=== PATIENT | male | born 1940 | race Caucasian/White ===

== ENCOUNTER → 2016-11-30 | Outpatient (CLI) | payer OTHER, BC ==
[~2016-11-30] MED LIST: ADVIN25050 INH; ALBUAER; ASPEC81 PO; LISI-461 PO; METO25TA56 PO; SIMV20TA2 PO; TIOTCAP INH; ZPAK
[2016-12-01 15:54] LABS: ALBUMIN 3.7 G/DL (3.8-4.8); GAMMA GLOBULIN 0.9 G/DL (0.8-1.7); IMMUNOFIXATION IGA SERUM 105 MG/DL (81-463); IMMUNOFIXATION IGG SERUM 938 MG/DL (694-1618); IMMUNOFIXATION IGM SERUM 248 MG/DL (48-271); TOTAL PROTEIN 6.4 G/DL (6.2-8.3)
== END | disposition home or self-care (01) ==
LOC: C.LABPVFM 10:22
PROVIDERS: ATTEND Internal Medicine Rheumatology
DX: M25.432 Effusion, left wrist (principal); M25.531 Pain in right wrist; M25.439 Effusion, unspecified wrist

== ENCOUNTER → 2017-01-28 | Outpatient (CLI) | payer OTHER, BC ==
--- NOTE | 2017-01-28 11:09 | DIAGNOSTIC IMAGING REPORT ---
CHEST CT WITHOUT CONTRAST CT DOSE: 607.82 mGycm HISTORY: Pulmonary nodule R91.1 Solitary pulmonary noduled in 4 [id number] TECHNIQUE: Multiaxial CT images of the chest were performed without contrast. COMPARISON: 09/27/2016 FINDINGS: Baseline emphysematous change. Mild scattered fibrotic change left lower lobe and to lesser extent right base posteriorly unchanged. Previously described 1.6 cm nodular density adjacent to the left major fissure transaxial image 23 is considerably diminished in size with a current maximum dimension of 5 mm. Vague micronodularity right upper lung unchanged. Several small mediastinal nodes unchanged. Considerable atherosclerotic change thoracic aorta also unchanged. IMPRESSION: 1. Interval decrease in size of a nodular density immediately adjacent to the superior margin of the left major fissure. 2. This is diminished in size from 1.6 cm to 5 mm. 3. Additional chronic changes stable. 4. Routine follow-up per Fleischner criteria is suggested. Please refer to below summary of Fleischner criteria recommendations for follow-up of incidental CT nodules (Amy Saunders, Guidelines for management of small pulmonary nodules detected on CT scans: A statement from the Fleischner Society, Radiology 237: [phone].) Low Risk Patient: Minimal or no smoking or other known risk factors for malignancy <=4 mm: No follow-up needed. >4-6 mm: Initial follow-up CT at 12 months; if unchanged, no further follow-up. >6-8 mm: Initial follow-up CT at 6-12 months then at 18-24 months if no change. >8 mm: Follow-up CT at \R\3, 9, 24 months, or PET and/or biopsy. High Risk Patient: History of smoking or other known risk factors <=4 mm: Follow-up at 12 months; if unchanged, no further follow-up. >4-6 mm: Initial follow-up CT at 6-12 months then at 18-24 months if no change. >6-8 mm: Initial follow-up CT at 3-6 months then at 9-12 and 24 months if no change. >8 mm: Same as low risk patient. Note: Nodule size measured as average of length and width. Ground glass or partly solid nodules may require longer follow-up to exclude indolent adenocarcinoma. Electronically signed by: Primitivo Buckner M.D. 01/28/2017 11:07 AM Dictated Date/Time: 01/28/2017 11:03 AM
== END | disposition home or self-care (01) ==
LOC: C.CTS 10:45
PROVIDERS: ATTEND Internal Medicine Pulmonary Disease
DX: R91.1 Solitary pulmonary nodule (principal)

== ENCOUNTER → 2017-03-01 | Outpatient (CLI) | payer OTHER, BC ==
[2017-03-01 13:39] LABS: THYROID STIMULATING HORMONE 36.3 uIu/ml (0.300-4.500)
[2017-03-01 13:40] LABS: CHOLESTEROL/HDL RATIO 2.9
== END | disposition home or self-care (01) ==
LOC: C.LABPVFM 07:59
PROVIDERS: ATTEND Internal Medicine Cardiovascular Disease
DX: E03.9 Hypothyroidism, unspecified (principal); E78.00 Pure hypercholesterolemia, unspecified

== ENCOUNTER → 2017-06-02 | Outpatient (CLI) | payer OTHER, BC | END | disposition home or self-care (01) | LOC: C.LABPVFM 08:01 | PROVIDERS: ATTEND Nurse Practitioner | DX: E03.9 Hypothyroidism, unspecified (principal) ==

== ENCOUNTER → 2017-07-01 | Outpatient (CLI) | payer OTHER, BC ==
[2017-07-01 18:22] LABS: BLOOD UREA NITROGEN 12 mg/dl (7-18); BUN/CREATININE RATIO 10.3 (10-20); CALCIUM 9.4 mg/dl (8.5-10.1); CARBON DIOXIDE 31 mmol/L (21-32); CHLORIDE 103 mmol/L (98-107); GLUCOSE 84 mg/dl (70-99); POTASSIUM 4.4 mmol/L (3.5-5.1); SODIUM 139 mmol/L (136-145)
== END | disposition home or self-care (01) ==
LOC: C.LABPVFM 15:57
PROVIDERS: ATTEND Nurse Practitioner
DX: I10 Essential (primary) hypertension (principal)

== ENCOUNTER → 2017-08-22 | Outpatient (CLI) | payer OTHER, BC ==
[2017-08-22 12:58] LABS: CHOLESTEROL/HDL RATIO 2.1
== END | disposition home or self-care (01) ==
LOC: C.LABPVFM 08:00
PROVIDERS: ATTEND Internal Medicine Cardiovascular Disease
DX: E03.9 Hypothyroidism, unspecified (principal); E78.00 Pure hypercholesterolemia, unspecified

== ENCOUNTER → 2017-10-05 | Outpatient (CLI) | payer OTHER, BC ==
--- NOTE | 2017-10-05 09:39 | DIAGNOSTIC IMAGING REPORT ---
CT OF THE CHEST WITHOUT IV CONTRAST CLINICAL HISTORY: Lung nodule. COMPARISON STUDY: Chest CT January 28, 2017 and October 06, 2010 and PET/CT October 06, 2016. CT DOSE: 450.83 mGy.cm TECHNIQUE: Axial images of the chest were obtained without IV contrast. Images were reviewed in the axial, sagittal, and coronal planes. IV contrast was not administered for this examination. A dose lowering technique was utilized adhering to the principles of ALARA. FINDINGS: No enlarged axillary, mediastinal or hilar lymph nodes are present. There is extensive coronary artery calcification. 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 There is no pericardial effusion. Mucus is noted within the trachea. There is multi focal mucus throughout lower lobe bronchi, greatest within the right lower lobe. Severe emphysema is noted. Multifocal scarring, most evident within the left lower lobe is noted. The previously described perifissural nodule within the superior segment of the left lower lobe has resolved. No new pulmonary nodules are present. No pneumothorax or pleural effusion is present. Small calcified nodules are again noted. Bony thorax is unremarkable. There may be fatty infiltration of the liver. IMPRESSION: 1. Resolution of the previously described left lower lobe perifissural nodule. No suspicious pulmonary nodules. 2. Severe emphysema. 3. Diffuse bronchial wall thickening and multifocal mucus plugging, most evident within the right lower lobe. Electronically signed by: Eren Cardona M.D. 10/05/2017 9:37 AM Dictated Date/Time: 10/05/2017 9:23 AM
== END | disposition home or self-care (01) ==
LOC: C.CTS 08:55
PROVIDERS: ATTEND Internal Medicine Pulmonary Disease
DX: R91.8 Other nonspecific abnormal finding of lung field (principal); J43.9 Emphysema, unspecified

== ENCOUNTER → 2017-12-02 | Outpatient (CLI) | payer OTHER, BC ==
[2017-12-02 18:20] LABS: BLOOD UREA NITROGEN 14 mg/dl (7-18); CALCIUM 9.4 mg/dl (8.5-10.1); CARBON DIOXIDE 28 mmol/L (21-32); CREATININE 1.19 mg/dl (0.60-1.40); GLUCOSE 100 mg/dl (70-99); POTASSIUM 4.5 mmol/L (3.5-5.1); SODIUM 133 mmol/L (136-145)
== END | disposition home or self-care (01) ==
LOC: C.LABPVFM 13:34
PROVIDERS: ATTEND Nurse Practitioner
DX: E03.9 Hypothyroidism, unspecified (principal); I49.9 Cardiac arrhythmia, unspecified

== ENCOUNTER → 2018-06-28 | Outpatient (CLI) | payer OTHER, BC ==
[~2018-06-28] MED LIST changes: -ADVIN25050 INH; -ALBUAER; +ALBUAER INH; +ATRINS NEB; +LEVO125T5 PO; +SYMIN160 INH; -TIOTCAP INH; -ZPAK
[2018-06-28 10:08] LABS: ALBUMIN 3.3 gm/dl (3.4-5.0); ALKALINE PHOSPHATASE 55 U/L (45-117); ALT/SGPT 23 U/L (12-78); AST/SGOT 24 U/L (15-37); BLOOD UREA NITROGEN 9 mg/dl (7-18); CALCIUM 8.8 mg/dl (8.5-10.1); CARBON DIOXIDE 28 mmol/L (21-32); CREATININE 0.97 mg/dl (0.60-1.40); GLUCOSE 82 mg/dl (70-99); POTASSIUM 4.2 mmol/L (3.5-5.1); SODIUM 138 mmol/L (136-145); TOTAL PROTEIN 6.7 gm/dl (6.4-8.2)
--- NOTE | 2018-06-28 10:23 | DIAGNOSTIC IMAGING REPORT ---
ULTRASOUND KIDNEYS AND BLADDER CLINICAL HISTORY: Benign prostatic hyperplasia with urinary obstruction. COMPARISON STUDY: PET/CT dated 10/06/2016. TECHNIQUE: Real-time, grayscale, and color flow sonography of the kidneys and bladder is performed. Images are reviewed in the transverse and longitudinal planes. FINDINGS: Kidneys: The kidneys demonstrate mild cortical atrophy. The right kidney measures 9.6 x 4.7 x 5.1 cm and the left kidney measures 9.9 x 4.8 x 6.6 cm. There is no hydronephrosis. No shadowing renal calculi are identified. Small cortical and parapelvic cysts are observed. These measure Up to 12 mm. There is no sonographic evidence of contour deforming renal mass lesion. No perinephric fluid is identified. Bladder: The prostate gland is enlarged and heterogeneous, measuring 6 cm in transverse diameter. The bladder wall is thickened and trabeculated indicating chronic outlet obstruction.. Bilateral ureteral jets were seen. Upper abdomen: Survey images of the liver show evidence of hepatic steatosis. IMPRESSION: 1. The kidneys demonstrate cortical atrophy and are without hydronephrosis. 2. Prostatomegaly with evidence of chronic bladder outlet obstruction. Electronically signed by: Erik Jacobson M.D. 06/28/2018 10:22 AM Dictated Date/Time: 06/28/2018 9:57 AM
== END | disposition home or self-care (01) ==
LOC: C.ULTR 08:55
PROVIDERS: ATTEND Urology
DX: N39.0 Urinary tract infection, site not specified (principal); N40.1 Benign prostatic hyperplasia with lower urinary tract symptoms

== ENCOUNTER 2021-06-20 13:26 | Inpatient (IN) ==
[2021-06-20] MEDS ORDERED: SODIUM CHLORIDE 0.9% 500 ML IV STA (13:39)
[2021-06-20] MEDS ORDERED: STAT IV Infusion **Titration per Protocol STA (13:39)
[2021-06-20] MEDS ORDERED: dilTIAZem HCl 5 MG/ML 5 ML VIAL IV STA (13:39)
--- NOTE | 2021-06-20 13:42 | Emergency Department Note ---
History of Present Illness General Chief complaint: Cardiac Assessment Stated complaint: CARDIAC History of Present Illness 81-year-old male presents to the ED with a chief complaint of generalized weakness, tiredness shortness of breath all of which is worse with exertion. The patient states that he tripped over a chair a few days ago and fell striking his right eye. He is currently not on blood thinners. He is found to be in A. fib with RVR for EMS with a heart rate in the 160s. He was treated with IV Cardizem 20 mg as well as an IV fluid bolus in route to the hospital by EMS and his heart rate transiently improved into the 80s. The patient does not take any blood thinners. He reports no known history of atrial fibrillation or flutter. He does have some chronic issues with regards to shortness of breath and COPD. He is on several medications for this. He is also on levothyroxine. Denies any fevers or recent illness. No abdominal pains. No chest pains. No headaches. His symptoms have progressed over the last several days. Home Medications Medication Instructions Recorded Confirmed Type aspirin 81 mg tablet,delayed 81 mg PO QAM 06/22/19 06/20/21 History release (Adult Aspirin Regimen) Oxygen Home #1 ea 07/01/20 03/31/21 History guaifenesin 600 mg tablet, 600 mg PO Q12H tab 08/01/20 06/20/21 History extended release 12 hr (Mucinex) albuterol sulfate 90 mcg/actuation 2 puff INH QID PRN #18 g 08/29/20 06/20/21 Rx aerosol inhaler (Ventolin HFA) budesonide-formoterol HFA 160 2 puff INH Q12H #10.2 gm 05/04/21 06/20/21 Rx mcg-4.5 mcg/actuation aerosol inhaler (Symbicort) finasteride 5 mg tablet 5 mg PO HS 06/20/21 06/20/21 History levalbuterol HCl 1.25 mg/3 mL 1.25 mg INH DIRECTED PRN 06/20/21 06/20/21 History solution for nebulization levothyroxine 125 mcg tablet 125 mcg PO QAM 06/20/21 06/20/21 History lisinopril 10 mg tablet 10 mg PO QAM 06/20/21 06/20/21 History metoprolol succinate 50 mg 50 mg PO QAM 06/20/21 06/20/21 History tablet,extended release 24 hr nitroglycerin 0.4 mg sublingual 0.4 mg SUBLINGUAL Q5M PRN 06/20/21 06/20/21 Hi story tablet simvastatin 40 mg tablet 40 mg PO HS 06/20/21 06/20/21 History tamsulosin 0.4 mg capsule 0.4 mg PO HS 06/20/21 06/20/21 History umeclidinium 62.5 mcg/actuation 1 inh INHALATION QAM 06/20/21 06/20/21 History blister powder for inhalation (Incruse Ellipta) Allergies Allergy/AdvReac Type Severity Reaction Status Date / Time No Known Allergies Allergy Verified 06/20/21 14:14 Past Med/Surg History Medical History Acute on chronic respiratory failure with hypoxia and hypercapnia Cough Decreased cardiac ejection fraction Dyspnea History of degenerative joint disease HTN (hypertension) Hypercholesterolemia Hypothyroidism Ischemic cardiomyopathy Past myocardial infarction Solitary pulmonary nodule Urinary retention Surgical History History of intravascular stent placement Family History Mother Myocardial infarction Father Acute pneumonitis Asthma Sister Asthma Brother Myocardial infarction Denies family history of Ovarian cancer Prostate cancer Breast cancer Colorectal cancer Social History Smoking Status: Former smoker Tobacco Type: Cigarettes packs per day: 2; Years Smoked: 50; Number of Years Since Quit: 19; Hx Alcohol Use: Yes Hx Substance Use: No Preferred Language: [place] Communication Ability: Effective Visual Impairment: Limited Hearing Ability: Normal Beliefs That Will Affect Care: None marital status: / Current Living Situation: Alone current occupational status: retired Feels Safe at Home: Yes Childhood Exposure to Second-Hand Smoke: Yes caffeine: Yes Dental Care, Regularly: No Physical Activity Frequency: 1-2 Times per Week Seatbelt Use: always Sunscreen Use: No Review of Systems A total of 10 systems reviewed and were otherwise negative Physical Exam Vital Signs Vital Signs - 24 hr 06/20/21 13:30 06/20/21 14:00 06/20/21 14:11 Temperature 36.5 C Temperature Source Oral Pulse Rate 125 H 84 83 Pulse Rate from SpO2 Sensor 81 Pulse Rhythm Regular Pulse Strength Normal Respiratory Rate 31 H 24 21 Respiratory Effort / Characteristics Labored Blood Pressure 138/85 104/53 L 129/78 Blood Pressure Mean 102 70 95 Blood Pressure Position Sitting Pulse Oximetry 93 93 Oxygen Delivery Method Nasal Cannula Oxygen Flow Rate 3 Sepsis Recent Fever Within 48 Hours No Sepsis New/Unexplained Change in Mental Status No Sepsis Action Taken by Nursing No Action Required CONSTITUTIONAL/VITAL SIGNS: Reviewed / noted above. GENERAL: Non-toxic in appearance. INTEGUMENTARY: Warm, dry, and [place]. HEAD: Normocephalic. Right periorbital contusion. EYES: without scleral icterus or trauma. ENT/OROPHARYNX: clear and moist. LYMPHADENOPATHY/NECK: Is supple without lymphadenopathy or meningismus. RESPIRATORY: Clear to auscultation bilaterally. No increased work of breathing. CARDIOVASCULAR: Rapid rate and irregular rhythm. GI/ABDOMEN: Soft and nontender. No organomegaly or pulsatile mass. EXTREMITIES: Warm and well perfused. Left hand contusion. BACK: No CVA tenderness. NEUROLOGICAL: Intact without focal deficits. PSYCHIATRIC: normal affect. MUSCULOSKELETAL: Normally developed with good muscle tone. TRIAGE NURSING DOCUMENTATION REVIEWED. Course Administered Medications Diltiazem HCl 125 mg/ Dextrose 125 mls @ 5 mls/hr IV .Q24H [facility]; Protocol Stop: 07/20/21 13:44 Last Admin: 06/20/21 13:56 Dose: 5 mg/hr, 5 mls/hr Documented by: [id number] Cosigned by: [id number] Discontinued Medications Diltiazem HCl (Diltiazem Hcl 5 Mg/Ml 5 Ml Vial) 20 mg IV NOW STA Stop: 06/20/21 13:40 Last Admin: 06/20/21 13:55 Dose: 20 mg Documented by: [id number] Cosigned by: [id number] Sodium Chloride (Nss) 500 mls @ 999 mls/hr IV .Q31M STA Stop: 06/20/21 14:09 Last Admin: 06/20/21 13:55 Dose: 999 mls/hr Documented by: [id number] Critical Care Time Critical Care Time: Yes Total Critical Care Time: 35 I have personally spent 35 minutes of critical care time in the direct ma nagement of this patient. This includes bedside care, interpretation of diagnostic studies, and testing, discussion with consultants, patient, and family members, and other required patient management activities. This 35 minutes is in excess of all separately billable procedures. Medical Decision Making Differential Diagnosis Differential includes acute coronary syndrome, myocardial infarction, CVA, TIA, anemia, infection, pneumonia, UTI, pyelonephritis, poor nutrition, dehydration, electrolyte disturbance,hypoglycemia. Medical Records Attestation: I reviewed the patient's medical records. Home Medications Current Medication List: was personally reviewed by me Laboratory Data Attestation: I reviewed the patient's lab results. Result diagrams: 06/20/21 13:45 06/20/21 13:45 Lab Results 06/20/21 06/20/21 06/20/21 Range/Units 13:45 13:45 13:45 WBC 8.88 (4.8-10.8) K/uL RBC 5.58 (4.7-6.1) M/uL Hgb 14.9 (14.0-18.0) g/dL Hct 44.8 (42-52) % MCV 80.3 (80-100) fL MCH 26.7 (25-34) pg MCHC 33.3 (32-36) g/dL RDW Std Deviation 46.0 (36.4-46.3) fL RDW Coeff of Chloe 15.7 H (11.5-14.5) % Plt Count 168 (130-400) K/uL MPV 10.5 H (7.4-10.4) fL Immature Gran % (Auto) 0.7 % Neut % (Auto) 64.8 % Lymph % (Auto) 16.6 % [place] % (Auto) 17.8 % Eos % (Auto) 0.0 % Baso % (Auto) 0.1 % Neut # (Auto) 5.76 (1.4-6.5) K/uL Lymph # (Auto) 1.47 (1.2-3.4) K/uL [place] # (Auto) 1.58 H (0.11-0.59) K/uL Eos # (Auto) 0.00 (0-0.5) K/uL Baso # (Auto) 0.01 (0-0.2) K/uL Immature Gran # (Auto) 0.06 H (0.00-0.02) K/uL PT 11.7 (9.0-12.0) Seconds INR 1.2 H (0.9-1.1) APTT 28.8 (21.0-31.0) Seconds PTT Ratio 1.1 Sodium 130 L (136-145) mmol/L Potassium 4.6 (3.5-5.1) mmol/L Chloride 100 (98-107) mmol/L Carbon Dioxide 26 (21-32) mmol/L Anion Gap 4.0 (3-11) BUN 44 H (7-18) mg/dl Creatinine 1.41 H (0.6-1.4) mg/dl Est Cr Clr Drug Dosing 39.1 ml/min Est GFR ( Amer) 53.0 ml/min Est GFR (Non-Af Amer) 45.7 ml/min BUN/Creatinine Ratio 31.4 H (10-20) Glucose 114 H (70-99) mg/dl Calcium 8.1 L (8.5-10.1) mg/dl Magnesium 2.4 (1.8-2.4) mg/dl Total Bilirubin 1.0 (0.2-1) mg/dl AST 33 (15-37) U/L ALT 31 (12-78) U/L Alkaline Phosphatase 56 (45-117) U/L Total Protein 7.1 (6.4-8.2) gm/dl Albumin 3.1 L (3.4-5.0) gm/dl Globulin 4.0 (2.5-4.0) gm/dl Albumin/Globulin Ratio 0.8 L (0.9-2) TSH 5.120 H (0.300-4.500) uIu/ml COVID-19 Eval Order 06/20/21 Range/Units 14:08 WBC (4.8-10.8) K/uL RBC (4.7-6.1) M/uL Hgb (14.0-18.0) g/dL Hct (42-52) % MCV (80-100) fL MCH (25-34) pg MCHC (32-36) g/dL RDW Std Deviation (36.4-46.3) fL RDW Coeff of Chloe (11.5-14.5) % Plt Count (130-400) K/uL MPV (7.4-10.4) fL Immature Gran % (Auto) % Neut % (Auto) % Lymph % (Auto) % [place] % (Auto) % Eos % (Auto) % Baso % (Auto) % Neut # (Auto) (1.4-6.5) K/uL Lymph # (Auto) (1.2-3.4) K/uL [place] # (Auto) (0.11-0.59) K/uL Eos # (Auto) (0-0.5) K/uL Baso # (Auto) (0-0.2) K/uL Immature Gran # (Auto) (0.00-0.02) K/uL PT (9.0-12.0) Seconds INR (0.9-1.1) APTT (21.0-31.0) Seconds PTT Ratio Sodium (136-145) mmol/L Potassium (3.5-5.1) mmol/L Chloride (98-107) mmol/L Carbon Dioxide (21-32) mmol/L Anion Gap (3-11) BUN (7-18) mg/dl Creatinine (0.6-1.4) mg/dl Est Cr Clr Drug Dosing ml/min Est GFR ( Amer) ml/min Est GFR (Non-Af Amer) ml/min BUN/Creatinine Ratio (10-20) Glucose (70-99) mg/dl Calcium (8.5-10.1) mg/dl Magnesium (1.8-2.4) mg/dl Total Bilirubin (0.2-1) mg/dl AST (15-37) U/L ALT (12-78) U/L Alkaline Phosphatase (45-117) U/L Total Protein (6.4-8.2) gm/dl Albumin (3.4-5.0) gm/dl Globulin (2.5-4.0) gm/dl Albumin/Globulin Ratio (0.9-2) TSH (0.300-4.500) uIu/ml COVID-19 Eval Order Covid19 at [facility] Imaging Data Radiologist's Impression: Chest X-Ray 06/20/21 13:39 SINGLE VIEW CHEST CLINICAL HISTORY: Dysrhythmia. FINDINGS: An AP, portable, upright chest radiograph is compared to study dated 08/08/2019 and correlated with chest CT dated 10/05/2017. The examination is degraded by portable technique and apical lordotic positioning. The heart is enlarged noting atherosclerotic calcification of the thoracic aorta. The pulmonary vasculature is noncongested. Advanced emphysema and chronic interstitial thickening is similar to previous. There is bibasilar scarring/atelectasis. Pulmonary nodules seen on prior CT scans are not well-v isualized by x-ray. No airspace consolidation or large pleural effusion is identified. No pneumothorax is seen. The skeletal structures are osteopenic. The bony thorax is grossly intact. IMPRESSION: Cardiomegaly and emphysema with no acute cardiopulmonary abnormality. ACT 112: Negative or not required by law. Electronically signed by: Erik Jacobson M.D. 06/20/2021 2:[address] 06/20/21 13:42 CT SCAN OF THE BRAIN WITHOUT IV CONTRAST CLINICAL HISTORY: Fall. Head injury. COMPARISON STUDY: No priors. TECHNIQUE: Unenhanced axial CT scan of the brain is performed from the vertex to the skull base. A dose lowering technique was utilized adhering to the principles of ALARA. CT DOSE: 537.48 mGy.cm FINDINGS: Brain parenchyma: There are age-related involutional changes noting mild subcortical and periventricular microangiopathic change. There is no hemorrhage, mass effect, or evidence of acute territorial ischemia by CT criteria. Leigh-w yaquelin matter differentiation is preserved. A focus of left cerebellar encephalomalacia is consistent with a remote infarct. No extra-axial fluid collection is seen. Ventricles, sulci, cisterns: Prominent secondary to involutional change. Intracranial vasculature: There is atherosclerotic calcification of the cavernous carotid and vertebral arteries. Calvarium: The skeletal structures are osteopenic. No depressed calvarial fracture is identified. Sinuses and mastoids: There is mild mucosal thickening within the ethmoid sinuses. The remaining visualized paranasal sinuses are clear. The mastoid air cells are well pneumatized. Orbits: The bony orbits are grossly intact. IMPRESSION: There is no hemorrhage, mass effect, or evidence of acute territorial ischemia by CT criteria. ACT 112: Negative or not required by law. Electronically signed by: Erik Jacobson M.D. 06/20/2021 2:30 PM ECG Data Attestation: I personally reviewed and interpreted this ECG as follows: Additional Comments: Twelve-lead EKG: Per my interpretation there is an atrial flutter with variable conduction with a heart rate of 119. No PVCs. Normal QTC. No ST elevation. MDM Narrative Patient presents with generalized weakness, recent fall, shortness of breath with exertion. His symptoms have progressed over the last several days. His shortness of breath seems to be more chronic than acute. His initial EKG shows atrial fib at a heart rate of 166 when EMS picked him up. He was given IV Cardizem and some IV fluids in route. The patient has not had any fevers or recent illness. Twelve-lead EKG here shows atrial flutter with a variable conduction with a heart rate of 119. The patient was given IV bolus of Cardizem 20 mg here in addition to an IV Cardizem drip. His heart rate improved to the 80s but he continued to be in atrial flutter. The patient's CBC was normal. Chest x-ray did not show acute process. The BUN is 44 and creatinine is 1.4. A CT scan of the brain did not show any acute intracranial pathology. The patient was given 500 cc normal saline bolus here in addition to 500 cc normal saline bolus that was given by EMS. The patient's vital signs remained stable. He continues to be on the IV Cardizem drip for heart control and IV heparin was ordered bolus and drip. Patient will require further inpatient evaluation and c are. Impression & Plan Atrial flutter with rapid ventricular response Discharge Plan Visit Data Chief Complaint: Cardiac Assessment Stated Complaint: CARDIAC ED Provider: William Shaver Discharge Problem: Atrial flutter with rapid ventricular response Patient Disposition: Being Evaluated by Hospitalist Forms Stand Alone Forms: My [facility] Prescriptions Prescriptions: No Action albuterol sulfate [Ventolin HFA] 90 mcg/actuation HFA aerosol inhaler 2 puff INH QID PRN (Reason: shortness of breath) Qty: 18 RF: 3 Symbicort 160-4.5 mcg/actuation HFA aerosol inhaler 2 puff INH Q12H Qty: 10.2 RF: 2 (DME) Oxygen Home Liters Per Minute See Dose Instructions .ROUTE .MEDSUPPLY Qty: 1 RF: 0 guaifenesin [Mucinex] 600 mg tablet extended release 12hr 600 mg PO Q12H RF: 0 aspirin [Adult Aspirin Regimen] 81 mg tablet,delayed release (DR/EC) 81 mg PO QAM RF: 0 nitroglycerin 0.4 mg Tablet, Sublingual 0.4 mg sublingual Q5M PRN (Reason: Chest Pain) RF: 0 metoprolol succinate 50 mg tablet extended release 24 hr 50 mg PO QAM RF: 0 simvastatin 40 mg tablet 40 mg PO HS RF: 0 tamsulosin 0.4 mg capsule 0.4 mg PO HS RF: 0 levothyroxine 125 mcg tablet 125 mcg PO QAM RF: 0 lisinopril 10 mg tablet 10 mg PO QAM RF: 0 levalbuterol HCl 1.25 mg/3 mL solution for nebulization 1.25 mg INH DIRECTED PRN (Reason: shortness of breath or wheezing) RF: 0 finasteride 5 mg tablet 5 mg PO HS RF: 0 Incruse Ellipta 62.5 mcg/actuation blister with device 1 inh inhalation QAM RF: 0 Referrals Referrals: Jerad Weems DO [Primary Care Provider] -
[2021-06-20] MEDS: dilTIAZem HCL 125 MG in DEXTROSE 5% 100 ML IV SCH (13:56)
[2021-06-20 14:14] LABS: Basophils # (auto) 0.01 K/uL (0-0.2); Basophils % (auto) 0.1 %; Hematocrit (blood only) 44.8 % (42-52); Hemoglobin 14.9 g/dL (14.0-18.0); Immature Granulocytes # (auto) 0.06 K/uL (0.00-0.02); Immature Granulocytes % (auto) 0.7 %; Lymphocytes # (auto) 1.47 K/uL (1.2-3.4); Lymphocytes % (auto) 16.6 %; Mean Corpuscular Hemoglobin 26.7 pg (25-34); Mean Corpuscular Hgb Conc 33.3 g/dL (32-36); Mean Corpuscular Volume 80.3 fL (80-100); Mean Platelet Volume 10.5 fL (7.4-10.4); Monocytes # (auto) 1.58 K/uL (0.11-0.59); Monocytes % (auto) 17.8 %; Neutrophils # (auto) 5.76 K/uL (1.4-6.5); Neutrophils % (auto) 64.8 %; Platelet Count 168 K/uL (130-400); RDW Coefficient of Variation 15.7 % (11.5-14.5); Red Blood Count 5.58 M/uL (4.7-6.1); White Blood Count 8.88 K/uL (4.8-10.8)
[2021-06-20 14:25] LABS: INR 1.2 (0.9-1.1); Partial Thromboplastin Ratio 1.1; Partial Thromboplastin Time 28.8 Seconds (21.0-31.0); Prothrombin Time 11.7 Seconds (9.0-12.0)
--- NOTE | 2021-06-20 14:25 | XRay Report ---
SINGLE VIEW CHEST CLINICAL HISTORY: Dysrhythmia. FINDINGS: An AP, portable, upright chest radiograph is compared to study dated 08/08/2019 and correlat ed with chest CT dated 10/05/2017. The examination is degraded by portable technique and apical lordo tic positioning. The heart is enlarged noting atherosclerotic calcification of the thoracic aorta. Th e pulmonary vasculature is noncongested. Advanced emphysema and chronic interstitial thickening is si milar to previous. There is bibasilar scarring/atelectasis. Pulmonary nodules seen on prior CT scans are not well-visualized by x-ray. No airspace consolidation or large pleural effusion is identified. No pneumothorax is seen. The skeletal structures are osteopenic. The bony thorax is grossly intact. IMPRESSION: Cardiomegaly and emphysema with no acute cardiopulmonary abnormality. ACT 112: Negative or not required by law. Electronically signed by: Erik Jacobson M.D. 06/20/2021 2:23 PM
--- NOTE | 2021-06-20 14:31 | CT Scan Report ---
CT SCAN OF THE BRAIN WITHOUT IV CONTRAST CLINICAL HISTORY: Fall. Head injury. COMPARISON STUDY: No priors. TECHNIQUE: Unenhanced axial CT scan of the brain is performed from the vertex to the skull base. A do se lowering technique was utilized adhering to the principles of ALARA. CT DOSE: 537.48 mGy.cm FINDINGS: Brain parenchyma: There are age-related involutional changes noting mild subcortical and periventric ular microangiopathic change. There is no hemorrhage, mass effect, or evidence of acute territorial i schemia by CT criteria. Leigh-white matter differentiation is preserved. A focus of left cerebellar en cephalomalacia is consistent with a remote infarct. No extra-axial fluid collection is seen. Ventricles, sulci, cisterns: Prominent secondary to involutional change. Intracranial vasculature: There is atherosclerotic calcification of the cavernous carotid and vertebr al arteries. Calvarium: The skeletal structures are osteopenic. No depressed calvarial fracture is identified. Sinuses and mastoids: There is mild mucosal thickening within the ethmoid sinuses. The remaining visu alized paranasal sinuses are clear. The mastoid air cells are well pneumatized. Orbits: The bony orbits are grossly intact. IMPRESSION: There is no hemorrhage, mass effect, or evidence of acute territorial ischemia by CT crit ermaria t. ACT 112: Negative or not required by law. Electronically signed by: Erik Jacobson M.D. 06/20/2021 2:30 PM
[2021-06-20 14:32] LABS: Albumin Level 3.1 gm/dl (3.4-5.0); BUN Creatinine Ratio 31.4 (10-20); Calcium 8.1 mg/dl (8.5-10.1); Creatinine Clr Calc Pharmacy 39.1 ml/min; Est GFR (Non-African American) 45.7 ml/min; Magnesium 2.4 mg/dl (1.8-2.4); Potassium 4.6 mmol/L (3.5-5.1)
[2021-06-20 14:43] LABS: Albumin Globulin Ratio 0.8 (0.9-2); Thyroid Stimulating Hormone 5.12 uIu/ml (0.300-4.500); Total Protein 7.1 gm/dl (6.4-8.2)
[2021-06-20] MEDS ORDERED: Heparin IV Adult Wt-Based Standard WITH Bolus Protocol IV STA (14:45)
[2021-06-20 14:55] LABS: T4 Free Thyroxine 1.21 ng/dl (0.8-1.6)
[2021-06-20] MEDS: HEPARIN SODIUM/DEXTROSE 25,000 UNITS/500 ML BAG IV SCH (14:56)
[2021-06-20] MEDS ORDERED: HEPARIN SOD (PORCINE) 1000 UNIT/ML IV ONE (15:00)
[2021-06-20 15:35] LABS: Troponin I 0.055 ng/ml (0-0.045)
[2021-06-20] MEDS ORDERED: METOPROLOL SUCC 50MG EXT REL TAB PO STA (15:37)
--- NOTE | 2021-06-20 15:38 | History & Physical Report ---
Date of Service June 20, 2021 Assessment & Plan (1) Atrial flutter with rapid ventricular response: Plan: 81yo male with new onset atrial flutter with RVR, rate of 160's prior to arrival. Presently on diltiazem gtt and heparin gtt with improvement - HR of 118. Patient did not take his Metoprolol this AM. No overt clinical evidence of CHF -Admit to PCU -Will give Metoprolol dose now -Continue Diltiazem gtt -Continue Heparin gtt -Check 2D echo -Troponin elevated at 0.055 - will trend q 8 hours If patient's blood pressure is unable to tolerate Diltiazem may need Digoxin or Amiodarone (2) Chronic obstructive pulmonary disease: Plan: Patient with history of chronic hypoxic respiratory failure, COPD (postbronchodilator FEV1 32% on 01/05/2019) on home O2. He follows with Pulmonary, last seen 03/31/21. -Continue Budesonide-Formoterol, Umeclidinium -Spiriva -Continue Guaifenesin -Albuterol nebs PRN -Supplemental O2 a needed for goal SpO2 of 88-92% (3) Ischemic cardiomyopathy: Plan: Patient with history of ischemic cardiomyopathy, EF of 35-40% per echo in August 2018. Presently does not appear to be in failure -Continue Metoprolol -Continue Lisinopril -Continue ASA (4) HTN (hypertension): Plan: Chronic. BP well controlled -Continue Metoprolol, Lisinopril -Continue to monitor (5) Hypothyroidism: Plan: Chronic. TSH mildly elevated at 5.12 with normal Free T4 of 1.21 -Continue Levothyroxine 125mcg (6) Benign prostatic hyperplasia with urinary obstruction: Plan: Chronic -Continue Finasteride and Flomax History of Present Illness Chief Complaint: weakness, fatigue Primary Care Provider: Jerad Weems DO Rg Trujillo is an 81yo male with history of HTN, HLP, COPD on 3L home O2, ICM presenting with 1-2 weeks of progressive weakness/fatigue and VILLAFANA/SOB, poor appetite and decreased oral intake. Patient denies fever/chills/cough/palpitations/edema/orthopnea or chest pain. Patient found to be in atrial flutter with HR of 160's by EMS. He was given Diltiazem and IVF en route and started on a Diltiazem gtt in the ER. Patient had a fall at home when he became tangled in his oxygen tubing and fell over a chair. He struck his right eye and possibly left shoulder. He has a large bruise over his left eye. Some abrasion on left shoulder as well. No additional complaints at this time. ER Course: Diltiazem, Heparin, NSS Allergies Allergy/AdvReac Type Severity Reaction Status Date / Time No Known Allergies Allergy Verified 06/20/21 14:14 Home Medications Medication Instructions Recorded Confirmed Type aspirin 81 mg tablet,delayed 81 mg PO QAM 06/22/19 06/20/21 History release (Adult Aspirin Regimen) Oxygen Home #1 ea 07/01/20 03/31/21 History guaifenesin 600 mg tablet, 600 mg PO Q12H tab 08/01/20 06/20/21 History extended release 12 hr (Mucinex) albuterol sulfate 90 mcg/actuation 2 puff INH QID PRN #18 g 08/29/20 06/20/21 Rx aerosol inhaler (Ventolin HFA) budesonide-formoterol HFA 160 2 puff INH Q12H #10.2 gm 05/04/21 06/20/21 Rx mcg-4.5 mcg/actuation aerosol inhaler (Symbicort) finasteride 5 mg tablet 5 mg PO HS 06/20/21 06/20/21 History levalbuterol HCl 1.25 mg/3 mL 1.25 mg INH DIRECTED PRN 06/20/21 06/20/21 History solution for nebulization levothyroxine 125 mcg tablet 125 mcg PO QAM 06/20/21 06/20/21 History lisinopril 10 mg tablet 10 mg PO QAM 06/20/21 06/20/21 History metoprolol succinate 50 mg 50 mg PO QAM 06/20/21 06/20/21 History tablet,extended release 24 hr nitroglycerin 0.4 mg sublingual 0.4 mg SUBLINGUAL Q5M PRN 06/20/21 06/20/21 History tablet simvastatin 40 mg tablet 40 mg PO HS 06/20/21 06/20/21 History tamsulosin 0.4 mg capsule 0.4 mg PO HS 06/20/21 06/20/21 History umeclidinium 62.5 mcg/actuation 1 inh INHALATION QAM 06/20/21 06/20/21 History blister powder for inhalation (Incruse Ellipta) Past Med/Surg History Medical History Acute on chronic respiratory failure with hypoxia and hypercapnia Cough Decreased cardiac ejection fraction Dyspnea History of degenerative joint disease HTN (hypertension) Hypercholesterolemia Hypothyroidism Ischemic cardiomyopathy Past myocardial infarction Solitary pulmonary nodule Urinary retention Surgical History History of intravascular stent placement Family History Mother Myocardial infarction Father Acute pneumonitis Asthma Sister Asthma Brother Myocardial infarction Denies family history of Ovarian cancer Prostate cancer Breast cancer Colorectal cancer Social History Smoking Status: Former smoker Tobacco Type: Cigarettes packs per day: 2; Years Smoked: 50; Number of Years Since Quit: 19; Hx Alcohol Use: Yes Hx Substance Use: No Preferred Language: Slovenian Communication Ability: Effective Visual Impairment: Limited Hearing Ability: Normal Beliefs That Will Affect Care: None marital status: / Current Living Situation: Alone current occupational status: retired Feels Safe at Home: Yes Childhood Exposure to Second-Hand Smoke: Yes caffeine: Yes Dental Care, Regularly: No Physical Activity Frequency: 1-2 Times per Week Seatbelt Use: always Sunscreen Use: No Review of Systems Review of Systems: All systems reviewed & are unremarkable except as noted in HPI & below Denies nausea, vomiting, diarrhea, dysuria Denies fever, chills Denies syncope Physical Exam Physical Exam: General: elderly male patient resting comfortably, NAD, AA&O x 4 Skin: warm, dry, extensive bruising with dried blood present right periorbital region, healing abrasion present on left shoulder, scabbing on mid back, skin redness with one large fluid-filled blister over left back HEENT: Bruising over right periorbital region as above, PERRL, EOMI, anicteric sclera, conjunctiva without injection, external ear normal to inspection and nontender, nares patent, moist mucus membranes, dentition intact, no oropharyngeal lesions, neck supple, trachea midline, no LAD, no thyromegaly, no JVD Heart: +S1/S2, irregularly irregular, tachycardic, no m/r/g Lungs: equal air entry bilaterally, diminished breath sounds with prolonged expiratory phase, no rales/rhonchi/wheezes Abd: +BS, soft, NT/ND, no masses/organomegaly/ascites Ext: warm, 2+ pulses in UE/LE bilaterally, no clubbing/cyanosis or edema Neuro: nonfocal, patient AA&O x 4, speech intact, no facial droop, moving all extremities on command with equal strength 5/5 Results & Data Results & Data ([facility]) Vital Signs (Past 12 Hours) Vital Signs Temp Pulse Resp BP Pulse Ox 06/20/21 15:11 99 H 25 H 132/61 95 06/20/21 14:51 92 H 27 H 100/56 L 06/20/21 14:40 102 H 26 H 113/62 96 06/20/21 14:11 83 21 129/78 93 06/20/21 14:00 84 24 104/53 L 06/20/21 13:30 36.5 C 125 H 31 H 138/85 93 Laboratory Results Laboratory Results WBC 8.88 K/uL (4.8-10.8) 06/20/21 13:45 RBC 5.58 M/uL (4.7-6.1) 06/20/21 13:45 Hgb 14.9 g/dL (14.0-18.0) 06/20/21 13:45 Hct 44.8 % (42-52) 06/20/21 13:45 MCV 80.3 fL (80-100) 06/20/21 13:45 MCH 26.7 pg (25-34) 06/20/21 13:45 MCHC 33.3 g/dL (32-36) 06/20/21 13:45 RDW Std Deviation 46.0 fL (36.4-46.3) 06/20/21 13:45 RDW Coeff of Chloe 15.7 % (11.5-14.5) H 06/20/21 13:45 Plt Count 168 K/uL (130-400) 06/20/21 13:45 MPV 10.5 fL (7.4-10.4) H 06/20/21 13:45 Immature Gran % (Auto) 0.7 % 06/20/21 13:45 Neut % (Auto) 64.8 % 06/20/21 13:45 Lymph % (Auto) 16.6 % 06/20/21 13:45 [place] % (Auto) 17.8 % 06/20/21 13:45 Eos % (Auto) 0.0 % 06/20/21 13:45 Baso % (Auto) 0.1 % 06/20/21 13:45 Neut # (Auto) 5.76 K/uL (1.4-6.5) 06/20/21 13:45 Lymph # (Auto) 1.47 K/uL (1.2-3.4) 06/20/21 13:45 [place] # (Auto) 1.58 K/uL (0.11-0.59) H 06/20/21 13:45 Eos # (Auto) 0.00 K/uL (0-0.5) 06/20/21 13:45 Baso # (Auto) 0.01 K/uL (0-0.2) 06/20/21 13:45 Immature Gran # (Auto) 0.06 K/uL (0.00-0.02) H 06/20/21 13:45 PT 11.7 Seconds (9.0-12.0) 06/20/21 13:45 INR 1.2 (0.9-1.1) H 06/20/21 13:45 APTT 28.8 Seconds (21.0-31.0) 06/20/21 13:45 PTT Ratio 1.1 06/20/21 13:45 Sodium 130 mmol/L (136-145) L 06/20/21 13:45 Potassium 4.6 mmol/L (3.5-5.1) 06/20/21 13:45 Chloride 100 mmol/L (98-107) 06/20/21 13:45 Carbon Dioxide 26 mmol/L (21-32) 06/20/21 13:45 Anion Gap 4.0 (3-11) 06/20/21 13:45 BUN 44 mg/dl (7-18) H 06/20/21 13:45 Creatinine 1.41 mg/dl (0.6-1.4) H 06/20/21 13:45 Est Cr Clr Drug Dosing 39.1 ml/min 06/20/21 13:45 Est GFR ( Amer) 53.0 ml/min 06/20/21 13:45 Est GFR (Non-Af Amer) 45.7 ml/min 06/20/21 13:45 BUN/Creatinine Ratio 31.4 (10-20) H 06/20/21 13:45 Glucose 114 mg/dl (70-99) H 06/20/21 13:45 Calcium 8.1 mg/dl (8.5-10.1) L 06/20/21 13:45 Magnesium 2.4 mg/dl (1.8-2.4) 06/20/21 13:45 Total Bilirubin 1.0 mg/dl (0.2-1) 06/20/21 13:45 AST 33 U/L (15-37) 06/20/21 13:45 ALT 31 U/L (12-78) 06/20/21 13:45 Alkaline Phosphatase 56 U/L (45-117) 06/20/21 13:45 Troponin I 0.055 ng/ml (0-0.045) H* 06/20/21 13:45 Total Protein 7.1 gm/dl (6.4-8.2) 06/20/21 13:45 Albumin 3.1 gm/dl (3.4-5.0) L 06/20/21 13:45 Globulin 4.0 gm/dl (2.5-4.0) 06/20/21 13:45 Albumin/Globulin Ratio 0.8 (0.9-2) L 06/20/21 13:45 TSH 5.120 uIu/ml (0.300-4.500) H 06/20/21 13:45 Free T4 1.21 ng/dl (0.8-1.6) 06/20/21 13:45 COVID-19 Eval Order Covid19 at [facility] 06/20/21 14:08 SARS-CoV-2 (PCR) NEGATIVE (Negative) 06/20/21 14:08 Impressions Chest X-Ray 06/20/21 13:39 SINGLE VIEW CHEST CLINICAL HISTORY: Dysrhythmia. FINDINGS: An AP, portable, upright chest radiograph is compared to study dated 08/08/2019 and correlated with chest CT dated 10/05/2017. The examination is degraded by portable technique and apical lordotic positioning. The heart is enlarged noting atherosclerotic calcification of the thoracic aorta. The pulmonary vasculature is noncongested. Advanced emphysema and chronic interstitial thickening is similar to previous. There is bibasilar scarring/atelectasis. Pulmonary nodules seen on prior CT scans are not well- visualized by x-ray. No airspace consolidation or large pleural effusion is identified. No pneumothorax is seen. The skeletal structures are osteopenic. The bony thorax is grossly intact. IMPRESSION: Cardiomegaly and emphysema with no acute cardiopulmonary abnormality. ACT 112: Negative or not required by law. Electronically signed by: Erik Jacobson M.D. 06/20/2021 2:[address] 06/20/21 13:42 CT SCAN OF THE BRAIN WITHOUT IV CONTRAST CLINICAL HISTORY: Fall. Head injury. COMPARISON STUDY: No priors. TECHNIQUE: Unenhanced axial CT scan of the brain is performed from the vertex to the skull base. A dose lowering technique was utilized adhering to the principles of ALARA. CT DOSE: 537.48 mGy.cm FINDINGS: Brain parenchyma: There are age-related involutional changes noting mild subcortical and periventricular microangiopathic change. There is no hemorrhage, mass effect, or evidence of acute territorial ischemia by CT criteria. Leigh- white matter differentiation is preserved. A focus of left cerebellar encephalomalacia is consistent with a remote infarct. No extra-axial fluid collection is seen. Ventricles, sulci, cisterns: Prominent secondary to involutional change. Intracranial vasculature: There is atherosclerotic calcification of the cavernous carotid and vertebral arteries. Calvarium: The skeletal structures are osteopenic. No depressed calvarial fracture is identified. Sinuses and mastoids: There is mild mucosal thickening within the ethmoid sinuses. The remaining visualized paranasal sinuses are clear. The mastoid air cells are well pneumatized. Orbits: The bony orbits are grossly intact. IMPRESSION: There is no hemorrhage, mass effect, or evidence of acute territorial ischemia by CT criteria. ACT 112: Negative or not required by law. Electronically signed by: Erik Jacobson M.D. 06/20/2021 2:30 PM ECG Additional Comments: EKG wtih atrial flutter at 119 bpm, left axis deviation, ZFJ=276, MIj=075, incomplete RBBB, nonspecific ST changes, no STEMI PG Care Time/CCT Total # of Minutes Spent Total Time Spent with Patient: Total time spent is greater than 50% in coordination of care (as documented) at patient's floor/unit and/or counseling patient: Coding Level of Care Code 70105 Initial Inpt Care Lvl 3 Diagnoses Atrial flutter with rapid ventricular response I48.92 Ischemic cardiomyopathy I25.5 HTN (hypertension) I10 Hypothyroidism E03.9 Benign prostatic hyperplasia with urinary obstruction N40.1; N13.8 Chronic obstructive pulmonary disease J44.9
[2021-06-20] MEDS ORDERED: ALBUTEROL 0.5% NEB SOLN 2.5 MG/0.5 ML VIAL NEB PRN (17:18)
[2021-06-20] MEDS ORDERED: ACETAMINOPHEN 325 MG TAB PO PRN (17:18)
[2021-06-20] MEDS ORDERED: DOCUSATE SODIUM 100 MG CAP PO PRN (17:18)
[2021-06-20] MEDS: guaiFENesin 600 MG TABCR PO SCH (17:38)
[2021-06-20 19:03] LABS: Appearance Urine Clear (Clear); Bacteria Urine Automated Negative (Negative); Blood Urine 2+ (Negative); Color Urine Dark Yellow; Glucose Urine UA Negative (Negative); Ketones Urine 2+ (Negative); Leukocyte Esterase Urine Trace (Negative); Nitrite Urine Negative (Negative); Protein Urine 1+ (Negative); Urobilinogen Urine Negative (Negative); pH Urine 5.5 (4.5-7.5)
[2021-06-20 19:07] LABS: Bilirubin Urine 1+ (Negative)
[2021-06-20] MEDS: TAMSULOSIN HCL 0.4 MG CAP PO SCH (20:12)
[2021-06-20] MEDS: FINASTERIDE 5 MG TAB PO SCH (20:12)
[2021-06-20] MEDS: FLUTICASONE/VILANTEROL 100/25MCG 14 PUFFS/INHALER INH SCH (20:12)
[2021-06-20] MEDS: SILVER SULFADIAZINE 1% CR 50 GM JAR EXT PRN (20:15)
[2021-06-20 21:34] LABS: Partial Thromboplastin Ratio 2.3
[2021-06-20 21:38] LABS: Partial Thromboplastin Time 61.5 Seconds (21.0-31.0)
[2021-06-21] MEDS ORDERED: dilTIAZem HCL 30 MG TAB PO ONE (00:10)
[2021-06-21] MEDS: dilTIAZem HCL 125 MG in DEXTROSE 5% 100 ML IV SCH ×2 (00:16→14:31)
[2021-06-21 01:21] LABS: Basophils # (auto) 0.02 K/uL (0-0.2); Basophils % (auto) 0.2 %; Eosinophils # (auto) 0.02 K/uL (0-0.5); Eosinophils % (auto) 0.2 %; Hematocrit (blood only) 38.8 % (42-52); Hemoglobin 13.3 g/dL (14.0-18.0); Immature Granulocytes # (auto) 0.04 K/uL (0.00-0.02); Immature Granulocytes % (auto) 0.4 %; Lymphocytes # (auto) 1.69 K/uL (1.2-3.4); Lymphocytes % (auto) 17.6 %; Mean Corpuscular Hemoglobin 27.5 pg (25-34); Mean Corpuscular Hgb Conc 34.3 g/dL (32-36); Mean Corpuscular Volume 80.3 fL (80-100); Mean Platelet Volume 9.6 fL (7.4-10.4); Monocytes # (auto) 1.57 K/uL (0.11-0.59); Monocytes % (auto) 16.3 %; Neutrophils # (auto) 6.28 K/uL (1.4-6.5); Neutrophils % (auto) 65.3 %; Platelet Count 149 K/uL (130-400); RDW Coefficient of Variation 15.5 % (11.5-14.5); RDW Standard Deviation 45.5 fL (36.4-46.3); Red Blood Count 4.83 M/uL (4.7-6.1); White Blood Count 9.62 K/uL (4.8-10.8)
[2021-06-21 01:34] LABS: BUN Creatinine Ratio 37.9 (10-20); Calcium 7.7 mg/dl (8.5-10.1); Creatinine Clr Calc Pharmacy 53.6 ml/min; Est GFR (African American) 79.4 ml/min; Est GFR (Non-African American) 68.5 ml/min; Potassium 4.1 mmol/L (3.5-5.1)
[2021-06-21 01:38] LABS: Troponin I 0.044 ng/ml (0-0.045)
[2021-06-21 06:07] LABS: Partial Thromboplastin Ratio 2.1
[2021-06-21 06:15] LABS: Partial Thromboplastin Time 55.5 Seconds (21.0-31.0)
[2021-06-21] MEDS: LEVOTHYROXINE SODIUM 125 MCG TABLET PO SCH (06:18)
[2021-06-21] MEDS ORDERED: PERFLUTREN LIPID MICROSPHERE (DEFINITY) IV ONE (07:54)
[2021-06-21] MEDS: guaiFENesin 600 MG TABCR PO SCH ×2 (08:22→20:39)
[2021-06-21] MEDS: UMECLIDINIUM BROMIDE 62.5MCG/BLISTER 7 PUFFS/INHALER INH SCH (08:23)
[2021-06-21] MEDS: METOPROLOL TARTRATE 25 MG TAB PO SCH ×2 (08:24→15:54)
[2021-06-21] MEDS ORDERED: TIOTROPIUM BROMIDE 5 PUFF/90 MCG INH INH SCH (09:00)
[2021-06-21] MEDS ORDERED: METOPROLOL SUCC 50MG EXT REL TAB PO SCH (09:00)
[2021-06-21] MEDS ORDERED: lisinopril 10 MG TAB PO SCH (09:00)
[2021-06-21] MEDS ORDERED: ASPIRIN 81 MG ECTAB PO SCH (09:00)
--- NOTE | 2021-06-21 09:29 | Electrocardiogram Report ---
Test Reason : Blood Pressure : / mmHG Vent. Rate : 119 BPM Atrial Rate : 312 BPM P-R Int : 000 ms QRS Dur : 114 ms QT Int : 334 ms P-R-T Axes : 097 -79 -82 degrees QTc Int : 469 ms Atrial flutter with variable A-V block Left axis deviation Pulmonary disease pattern Incomplete right bundle branch block Abnormal ECG When compared with ECG of 06-OCT-2010 03:56, Atrial flutter has replaced Sinus rhythm Criteria for Anterolateral infarct are no longer Present Borderline criteria for Inferior infarct are no longer Present Confirmed by Alex Valles ([id number]) on 06/21/2021 9:28:45 AM Referred By: Confirmed By:Alex Valles
--- NOTE | 2021-06-21 09:41 | Electrocardiogram Report ---
Test Reason : Blood Pressure : / mmHG Vent. Rate : 091 BPM Atrial Rate : 091 BPM P-R Int : 174 ms QRS Dur : 132 ms QT Int : 386 ms P-R-T Axes : 075 -56 222 degrees QTc Int : 474 ms Normal sinus rhythm Left axis deviation Non-specific intra-ventricular conduction block Nonspecific T wave abnormality Abnormal ECG When compared with ECG of 20-JUN-2021 13:35, Sinus rhythm has replaced Atrial flutter Confirmed by Alex Valles ([id number]) on 06/21/2021 9:41:36 AM Referred By: REFERRED SELF Confirmed By:Alex Valles
[2021-06-21] MEDS: HEPARIN SODIUM/DEXTROSE 25,000 UNITS/500 ML BAG IV SCH (10:13)
--- NOTE | 2021-06-21 11:40 | Hospitalist Progress Note ---
Date of Service June 21, 2021 Assessment & Plan (1) Atrial flutter with rapid ventricular response: Plan: 81yo male with new onset atrial flutter with RVR, rate of 160's prior to arrival. Presently on diltiazem gtt and heparin gtt with improvement - HR of 118. Patient did not take his Metoprolol this AM. No overt clinical evidence of CHF -Continue Diltiazem gtt PRN -Anticoagulation with Heparin gtt, switch to Eliquis tonight -TTE pending -Intermittently going in and out of atrial fibrillation overnight -Troponin downtrending consistent with demand-ischemia Switch metoprolol succinate to tartrate and increase to Q6H, however given severity of his COPD, low BP - will consider a rhythm control strategy and will consult cardiology Suspect his decline over the last few months has been cardiac related and possibly due to a. fib rather than his COPD given lack of improvement with duonebs. (2) Chronic obstructive pulmonary disease: Plan: Patient with history of chronic hypoxic respiratory failure, COPD (postbronchodilator FEV1 32% on 01/05/2019) on home O2. He follows with Pulmonary, last seen 03/31/21. No exacerbation suspected -Continue Budesonide-Formoterol, Umeclidinium -Spiriva -Continue Guaifenesin -Albuterol nebs PRN -Supplemental O2 a needed for goal SpO2 of 88-92% (3) Ischemic cardiomyopathy: Plan: Patient with history of ischemic cardiomyopathy, EF of 35-40% per echo in August 2018. Presently does not appear to be in failure -Continue Metoprolol as above -Hold Lisinopril -Continue ASA (4) HTN (hypertension): Plan: Chronic. BP soft and will hold lisinopril at this time -Continue Metoprolol as above -Continue to monitor (5) Hypothyroidism: Plan: Chronic. TSH mildly elevated at 5.12 with normal Free T4 of 1.21 -Continue Levothyroxine 125mcg (6) Benign prostatic hyperplasia with urinary obstruction: Plan: Chronic -Continue Finasteride and Flomax Admission and Anticipated Discharge Date Admission Date: June 20, 2021 Subjective Short of breath at rest but mainly on exertion getting progressively worse over the last few months. Duonebs not helping. Mildly improved since some to the ER. Trauma to right side of his face after tripping and falling over his oxygen tubing last . Telemetry - current in NSR when seen on diltiazem drip but intermittently flipping back a. fib in 110s Review of Systems 2 Review of Systems: All systems reviewed & are unremarkable except as noted in HPI & below Physical Exam Constitutional: well developed; + not well nourished and no acute distress Eyes: + anicteric sclerae; normal pupil size ENMT: Mouth: oral mucous membranes not dry Respiratory: normal respiratory effort; no respiratory distress Auscultation: + diminished lung sounds (posteriorly poor air entry); no crackles and no wheezes Cardiovascular: Rate/Rhythm: regular rate and regular rhythm Heart Sounds: no murmur Extremities: normal capillary refill; no calf tenderness and no pedal edema Gastrointestinal (Abdomen): normal bowel sounds, soft, nontender, no hepatosplenomegaly Musculoskeletal: no cyanosis or clubbing, extremities motor strength 5/5 Skin: Trauma: + evidence of skin trauma (right periorbital) and + abrasion Neurologic: moves all extremities and awake; not confused Psychiatric: A+Ox3, euthymic affect Results & Data Results & Data ([facility]) Vital Signs (Past 12 Hours) Vital Signs Temp Pulse Resp BP Pulse Ox 06/21/21 10:49 36.4 C L 76 24 95/67 L 96 06/21/21 08:32 120 H 22 107/60 96 06/21/21 05:15 112 H 122/69 06/21/21 04:05 107 H 116/59 L 06/21/21 03:45 110 H 111/47 L 06/21/21 03:15 37.1 C 108 H 25 H 105/61 93 06/21/21 02:30 84 118/72 06/21/21 01:30 78 120/63 06/21/21 00:45 91 H 132/69 06/21/21 00:00 36.7 C 90 18 117/66 91 PG Care Time/CCT Total # of Minutes Spent Total Time Spent with Patient: Total time spent is greater than 50% in coordination of care (as documented) at patient's floor/unit and/or counseling patient: Coding Level of Care Code 81676 Subseq Hosp Care Lvl 3 Diagnoses Atrial flutter with rapid ventricular response I48.92 Chronic obstructive pulmonary disease J44.9 Ischemic cardiomyopathy I25.5 HTN (hypertension) I10 Hypothyroidism E03.9 Benign prostatic hyperplasia with urinary obstruction N40.1; N13.8
--- NOTE | 2021-06-21 14:15 | XCELERA ---
[id number]
--- NOTE | 2021-06-21 15:29 | Cardiology Consultation ---
Date of Consultation June 21, 2021 Assessment & Plan (1) Atrial flutter with rapid ventricular response: Elderly patient with severe cardiopulmonary compromise at baseline (oxygen dependent COPD and ischemic cardiomyopathy) who is currently decompensated and demonstrating atrial flutter with suboptimally controlled ventricular response. Given his markedly reduced systolic function and borderline hypotensive blood pressure, diltiazem should be replaced by an alternative agent. Could use IV/PO beta-christina, but given how poorly the patient is currently tolerating his tachycardia and the importance of preventing recurrence, would favor initiation of IV followed by oral amiodarone. Since he did demonstrate return to sinus rhythm briefly, a rhythm control strategy is worth pursuing in the near term. His [id number] score is at least 4, therefore chronic anticoagulation is likely indicated. He is currently on a heparin drip, could transition to apixaban 5 mg twice daily upon discharge. Could discontinue aspirin once he is on apixaban. (2) Ischemic cardiomyopathy: Continue KARISHMA inhibitor and beta-christina. Systolic function has declined from previous, in part this may be artifactual due to his current tachycardia. 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 (3) Acute on chronic respiratory failure with hypoxia and hypercapnia: Significant underlying pulmonary disease with superimposed tachycardia dysrhythmia likely account for his dyspnea. He does not appear volume overloaded currently. His minimal troponin elevation is likely demand ischemia. History of Present Illness Reason for Consultation: A. fib/RVR Requesting Physician: Edwin Henley MD Attending Physician: Edwin Henley MD History of Present Illness 81-year-old man with ischemic cardiomyopathy (EF previously 30-45% range, currently 20-25%), CAD ([place], LAD stent 2000), and significant COPD (chronic oxygen supplementation) who was admitted yesterday (06/20/2021) with progressive weakness/dyspnea on exertion and found to be in atrial flutter with rapid ventricular sponsor (up to 160 bpm). Patient had a fall and sustained a hematoma right facial area. He notes this was a trip and fall and there was no loss of consciousness or syncope. Overnight, his rhythm has been predominantly atrial flutter with suboptimally controlled ventricular spots, although he did briefly return to sinus rhythm this morning for several hours before recurrent atrial flutter develop. He continues to note dyspnea with minimal exertion, he feels fatigued and weak but has no major dyspnea at rest on oxygen. No chest pain at any time. No lightheadedness or subjective palpitations. Allergies Allergy/AdvReac Type Severity Reaction Status Date / Time No Known Allergies Allergy Verified 06/20/21 14:14 Home Medications Medication Instructions Recorded Confirmed Type aspirin 81 mg tablet,delayed 81 mg PO QAM 06/22/19 06/20/21 History release (Adult Aspirin Regimen) Oxygen Home #1 ea 07/01/20 03/31/21 History guaifenesin 600 mg tablet, 600 mg PO Q12H tab 08/01/20 06/20/21 History extended release 12 hr (Mucinex) albuterol sulfate 90 mcg/actuation 2 puff INH QID PRN #18 g 08/29/20 06/20/21 Rx aerosol inhaler (Ventolin HFA) budesonide-formoterol HFA 160 2 puff INH Q12H #10.2 gm 05/04/21 06/20/21 Rx mcg-4.5 mcg/actuation aerosol inhaler (Symbicort) finasteride 5 mg tablet 5 mg PO HS 06/20/21 06/20/21 History levalbuterol HCl 1.25 mg/3 mL 1.25 mg INH DIRECTED PRN 06/20/21 06/20/21 History solution for nebulization levothyroxine 125 mcg tablet 125 mcg PO QAM 06/20/21 06/20/21 History lisinopril 10 mg tablet 10 mg PO QAM 06/20/21 06/20/21 History metoprolol succinate 50 mg 50 mg PO QAM 06/20/21 06/20/21 History tablet,extended release 24 hr nitroglycerin 0.4 mg sublingual 0.4 mg SUBLINGUAL Q5M PRN 06/20/21 06/20/21 History tablet simvastatin 40 mg tablet 40 mg PO HS 06/20/21 06/20/21 History tamsulosin 0.4 mg capsule 0.4 mg PO HS 06/20/21 06/20/21 History umeclidinium 62.5 mcg/actuation 1 inh INHALATION QAM 06/20/21 06/20/21 History blister powder for inhalation (Incruse Ellipta) Patient History Medical History Acute on chronic respiratory failure with hypoxia and hypercapnia Cough Decreased cardiac ejection fraction Dyspnea History of degenerative joint disease HTN (hypertension) Hypercholesterolemia Hypothyroidism Ischemic cardiomyopathy Past myocardial infarction Solitary pulmonary nodule Urinary retention Surgical History History of intravascular stent placement Family History Myocardial infarction Mother Brother Acute pneumonitis Father Asthma Father Sister Denies family history of Ovarian cancer Prostate cancer Breast cancer Colorectal cancer Social History Smoking Status: Former smoker Tobacco Type: Cigarettes packs per day: 2; Years Smoked: 50; Number of Years Since Quit: 19; Hx Alcohol Use: Yes Alcohol type: beer Hx Substance Use: No Preferred Language: [place]ian Communication Ability: Effective Visual Impairment: Limited Hearing Ability: Normal Cloth Printer Required: No Beliefs That Will Affect Care: None marital status: / Current Living Situation: Alone current occupational status: retired Feels Safe at Home: Yes Childhood Exposure to Second-Hand Smoke: Yes caffeine: Yes Dental Care, Regularly: No Physical Activity Frequency: 1-2 Times per Week Seatbelt Use: always Sunscreen Use: No Assistive Devices: Denture - Upper, Glasses and Oxygen - Continuous Physical Exam Physical Exam: Chronically ill-appearing elderly white male who looks uncomfortable but not acutely distressed. Afebrile. BP borderline hypotensive without evidence of hypoperfusion. Pulse 1 110 bpm and irregular. Skin: Ecchymoses secondary to his fall. HEENT: Facial ecchymoses secondary to fall. Neck: Jugular venous pulse dose increased respiratory variation but is not elevated, no obvious carotid bruits. Lungs: Markedly decreased breath sounds, diffuse expiratory wheezing on forced exhalation. No obvious crackles. Mild accessory muscle use but no intercostal retraction, abdominal paradox, or nasal flaring. Cardiac: Faint heart tones with a regular tachycardic rhythm and no obvious murmur or gallop. Abdomen: benign. Extremities: no edema, lower extremity pulses difficult to palpate but extremities are warm. Neurologic: normal affect, nonfocal. Results & Data ([facility]) Vital Signs (Past 12 Hours) Vital Signs Temp Pulse Resp BP Pulse Ox 08/01/21 10:49 97.5 F L 76 24 95/67 L 96 06/21/21 08:32 120 H 22 107/60 96 06/21/21 05:15 112 H 122/69 06/21/21 04:05 107 H 116/59 L 06/21/21 03:45 110 H 111/47 L 06/21/21 03:15 98.8 F 108 H 25 H 105/61 93 Laboratory Results Normal CBC. Sodium 130, otherwise normal electrolytes, BUN 38, creatinine 1.01. Magnesium 2.4. Troponin 0.05, 0.06, 0.04. Diagnostic Findings Echocardiogram today shows EF 20 to 25% with a large old anteroapical infarct and remaining babcock showing severe hypokinesis. The right ventricular cavity is small but the inferior cava is moderately dilated. No obvious valvular disease on technically limited study. ECG on admission showed atrial flutter with ventricular rate 119 bpm, incomplete right bundle branch block, and poor R wave progression. Pulmonary disease pattern noted. ECG this morning showed sinus rhythm at 91 bpm with nonspecific interventricular conduction delay nonspecific T wave flattening. As noted, on telemetry the patient remained in sinus only for a few hours before returning to atrial flutter. Chest x-ray admission showed cardiomegaly and emphysema with no acute abnormalities. PG Care Time/CCT Total # of Minutes Spent Total Time Spent with Patient: Total time spent is greater than 50% in coordination of care (as documented) at patient's floor/unit and/or counseling patient: Coding Level of Care Code 56875 Initial Inpt Care Lvl 3 Diagnoses Atrial flutter with rapid ventricular response I48.92 Ischemic cardiomyopathy I25.5 Acute on chronic respiratory failure with hypoxia and hypercapnia J96.21; J96.22
[2021-06-21] MEDS ORDERED: 0.2 MICRON FILTER SET 1 EA IV ONE (15:36)
[2021-06-21] MEDS ORDERED: AMIODARONE IV BOLUS & DRIP IV STA (15:36)
[2021-06-21] MEDS ORDERED: STAT IV Infusion **Titration per Protocol STA (15:36)
[2021-06-21] MEDS ORDERED: AMIODARONE / D5W 150 MG/100 ML BAG IV STA (15:44)
[2021-06-21] MEDS ORDERED: AMIODARONE / D5W 360 MG/200 ML BAG IV ONE (15:54)
[2021-06-21] MEDS: APIXABAN 5 MG TABLET PO SCH (20:38)
[2021-06-21] MEDS: TAMSULOSIN HCL 0.4 MG CAP PO SCH (20:39)
[2021-06-21] MEDS: FINASTERIDE 5 MG TAB PO SCH (20:40)
[2021-06-21] MEDS: FLUTICASONE/VILANTEROL 100/25MCG 14 PUFFS/INHALER INH SCH (20:40)
[2021-06-21] MEDS: SILVER SULFADIAZINE 1% CR 50 GM JAR EXT PRN (20:40)
[2021-06-21] MEDS: CALCIUM CARBONATE 500 MG CHEWABLE TAB PO PRN (22:16)
[2021-06-21] MEDS: AMIODARONE / D5W 360 MG/200 ML BAG IV SCH (22:22)
[2021-06-22] MEDS: LEVOTHYROXINE SODIUM 125 MCG TABLET PO SCH (06:29)
[2021-06-22] MEDS: guaiFENesin 600 MG TABCR PO SCH ×2 (08:39→21:41)
[2021-06-22] MEDS: METOPROLOL SUCC 50MG EXT REL TAB PO SCH (08:39)
[2021-06-22] MEDS: UMECLIDINIUM BROMIDE 62.5MCG/BLISTER 7 PUFFS/INHALER INH SCH (08:40)
[2021-06-22] MEDS: APIXABAN 5 MG TABLET PO SCH ×2 (08:40→21:41)
[2021-06-22] MEDS: AMIODARONE / D5W 360 MG/200 ML BAG IV SCH (09:52)
[2021-06-22] MEDS: CALCIUM CARBONATE 500 MG CHEWABLE TAB PO PRN ×2 (09:58→21:57)
--- NOTE | 2021-06-22 10:00 | Cardiology Progress Note ---
Date of Service June 22, 2021 Assessment & Plan (1) Atrial flutter with rapid ventricular response: Plan: Rhythm returned to sinus on amiodarone infusion. Change to oral amiodarone, 200 mg twice daily while hospitalized then discharged on 200 mg once daily. His [id number] score is at least 4, therefore chronic anticoagulation is likely indicated. He is currently on a heparin drip, could transition to apixaban 5 mg twice daily upon discharge. Could discontinue aspirin once he is on apixaban. (2) Ischemic cardiomyopathy: Plan: Continue KARISHMA inhibitor and beta-christina. Systolic function has declined from previous, in part this may be artifactual due to his current admission tachycardia. Could reassess LV systolic function when he is returned to sinus, although I suspect this is unlikely to changeover operator. (3) Acute on chronic respiratory failure with hypoxia and hypercapnia: Plan: Significant underlying pulmonary disease with superimposed tachydysrhythmia likely account for his worsened dyspnea. He does not appear volume overloaded. Admission and Anticipated Discharge Date Admission Date: June 20, 2021 Subjective Dyspnea "is about the same". No shortness of breath at rest, becomes dyspneic with any activity. No chest pain, palpitations, or lightheadedness. Telemetry shows reversion to sinus rhythm around 9 PM last night, currently sinus in the 80 bpm range. Physical Exam Physical Exam: Chronically ill-appearing man in no acute distress. BP normotensive. Pulse 82 bpm and regular. Skin: Ecchymoses secondary to his fall. HEENT: Right-sided facial ecchymoses secondary to fall. Neck: Jugular venous pulse with increased respiratory variation but is not elevated, no obvious carotid bruits. Lungs: Markedly decreased breath sounds, diffuse expiratory wheezing on forced exhalation. No obvious crackles. No accessory muscle use, intercostal retraction, abdominal paradox, or nasal flaring. Cardiac: Faint heart tones with a regular rhythm and no obvious murmur or gallop. Abdomen: benign. Extremities: no edema, lower extremity pulses difficult to palpate but extremities are warm. Neurologic: normal affect, nonfocal. Results & Data ([facility]) Vital Signs (Past 12 Hours) Vital Signs Temp Pulse Pulse Resp BP Pulse Ox 06/22/21 08:00 98.1 F 82 20 125/76 96 06/22/21 04:17 90 06/22/21 03:44 97.7 F 86 18 119/81 95 06/21/21 23:59 98.4 F 79 18 122/68 95 Laboratory Results Normal electrolytes, BUN 38, creatinine 1.01. PG Care Time/CCT Total # of Minutes Spent Total Time Spent with Patient: Total time spent is greater than 50% in coordination of care (as documented) at patient's floor/unit and/or counseling patient: Coding Level of Care Code 38784 Subseq Hosp Care Lvl 3 Diagnoses Atrial flutter with rapid ventricular response I48.92 Ischemic cardiomyopathy I25.5 Acute on chronic respiratory failure with hypoxia and hypercapnia J96.21; J96.22
[2021-06-22] MEDS ORDERED: TRIAMCINOLONE ACET 0.1% CR 15 GM TUBE EXT PRN (13:08)
[2021-06-22 13:32] LABS: Hematocrit (blood only) 43.8 % (42-52); Hemoglobin 14.8 g/dL (14.0-18.0); Mean Corpuscular Hemoglobin 26.6 pg (25-34); Mean Corpuscular Hgb Conc 33.8 g/dL (32-36); Mean Corpuscular Volume 78.8 fL (80-100); Mean Platelet Volume 10.1 fL (7.4-10.4); Platelet Count 203 K/uL (130-400); RDW Coefficient of Variation 15.4 % (11.5-14.5); Red Blood Count 5.56 M/uL (4.7-6.1); White Blood Count 11.74 K/uL (4.8-10.8)
[2021-06-22 13:47] LABS: BUN Creatinine Ratio 27.1 (10-20); C Reactive Protein 5.83 mg/dl (0-0.29); Calcium 8.1 mg/dl (8.5-10.1); Creatinine Clr Calc Pharmacy 62.2 ml/min; Est GFR (African American) 92.5 ml/min; Est GFR (Non-African American) 79.8 ml/min; Potassium 4.2 mmol/L (3.5-5.1)
[2021-06-22] MEDS: POLYETHYLENE (MIRALAX) 17 GM PACK PO SCH (14:05)
[2021-06-22 14:06] LABS: ALC (manual) 1.63 K/uL (1.2-3.4); ANC (manual) 8.37 K/uL (1.4-6.5); Lymphocytes # (manual) 0.31 K/uL (1.2-3.4); Lymphocytes % (manual) 2.6 %; Monocytes # (manual) 1.63 K/uL (0.11-0.59); Monocytes % (manual) 13.9 %; Myelocytes # (manual) 0.11 K/uL (0-0); Myelocytes % (manual) 0.9 %; Neutrophils # (manual) 8.37 K/uL (1.4-6.5); Neutrophils % (manual) 71.3 %; RBC Morphology Unremarkable; Reactive Lymphocytes # (manual) 1.33 K/uL; Reactive Lymphocytes % (manual) 11.3 %
[2021-06-22] MEDS: AMIODARONE 200 MG TAB PO SCH (16:12)
--- NOTE | 2021-06-22 16:46 | Hospitalist Progress Note ---
Date of Service June 22, 2021 Assessment & Plan (1) Atrial flutter with rapid ventricular response: Plan: 81yo male with new onset atrial flutter with RVR, rate of 160's prior to arrival. Presently on diltiazem gtt and heparin gtt with improvement - HR of 118. Patient did not take his Metoprolol this AM. No overt clinical evidence of CHF -Continue Eliquis 5mg PO BID -TTE - LVEF 20-25%, moderately dilated inferior vena cava -More in NSR now on amiodarone. -Troponin downtrending consistent with demand-ischemia (2) Shortness of breath: Plan: Unfortunately does not appear to be improving with treatment for a. fib as above. Will discontinue his Incruse Ellipta given prior urinary retention with prior LAMA and patient feels worse on this medication (3) Skin rash: Plan: Unclear what initially caused this. It is raised and has the appearance of hives but with no exacerbating factors. Difficult to exclude infection of some areas especially left upper shoulder but currently does not have appearance of cellulitis and no fevers or chills. WBC mildly elevated, will trend. Start Dorita 180mg PO daily Triamcinolone cream Q12H PRN on non-open parts. Blister does not appear to be infected. (4) Chronic obstructive pulmonary disease: Plan: Patient with history of chronic hypoxic respiratory failure, COPD (postbronchodilator FEV1 32% on 01/05/2019) on home O2. He follows with Pulmonary, last seen 03/31/21. No exacerbation suspected -Continue Budesonide-Formoterol, Umeclidinium -Spiriva -Continue Guaifenesin -Albuterol nebs PRN -Supplemental O2 a needed for goal SpO2 of 88-92% (5) Ischemic cardiomyopathy: Plan: Patient with history of ischemic cardiomyopathy, EF of 35-40% per echo in August 2018. Presently does not appear to be in failure -Continue Metoprolol as above -Hold Lisinopril -Continue ASA (6) HTN (hypertension): Plan: Chronic. BP soft and will hold lisinopril at this time -Continue Metoprolol as above -Continue to monitor (7) Hypothyroidism: Plan: Chronic. TSH mildly elevated at 5.12 with normal Free T4 of 1.21 -Continue Levothyroxine 125mcg (8) Benign prostatic hyperplasia with urinary obstruction: Plan: Chronic -Continue Finasteride and Flomax -PVR bladder scan Admission and Anticipated Discharge Date Admission Date: June 20, 2021 Subjective Patient in NSR. No significant change to his shortness of breath. No chest pain. Continued chronic cough. No bleeding, melena, bright red blood in stool. Itching skin on back started on Tuesday. Did not get anything on his skin. Started prior to hospitalization. Blisters not noticed by patient. No history of dermatological skin rashes. No new drugs started. Reports previous urinary retention with LAMA. Feels his shortness of breath has been worse since starting Incruse Ellipta. Not yet had a bowel movement since admission. No nausea, vomiting or abdominal pain. Review of Systems Review of Systems: All systems reviewed & are unremarkable except as noted in HPI & below Physical Exam Constitutional: well developed; + not well nourished and no acute distress Eyes: + anicteric sclerae; normal pupil size ENMT: Mouth: oral mucous membranes not dry Respiratory: normal respiratory effort; no respiratory distress Auscultation: + diminished lung sounds (posteriorly poor air entry); no crackles and no wheezes Cardiovascular: Rate/Rhythm: regular rate and regular rhythm Heart Sounds: no murmur Extremities: normal capillary refill; no calf tenderness and no pedal edema Gastrointestinal (Abdomen): normal bowel sounds, soft, nontender, no hepatosplenomegaly Musculoskeletal: no cyanosis or clubbing, extremities motor strength 5/5 Skin: + erythema (back and left arm with excorariation pang, difficult to exclude cellulitis) and + excoriations (back and left arm) Trauma: + evidence of skin trauma (right periorbital) and + abrasion Neurologic: moves all extremities and awake; not confused Psychiatric: A+Ox3, euthymic affect Results & Data Results & Data ([facility]) Vital Signs (Past 12 Hours) Vital Signs Temp Pulse Pulse Resp BP Pulse Ox 06/22/21 15:54 36.8 C 80 19 116/66 96 06/22/21 11:58 36.7 C 76 28 H 130/67 99 06/22/21 08:00 36.7 C 89 82 20 125/76 96 PG Care Time/CCT Total # of Minutes Spent Total Time Spent with Patient: Total time spent is greater than 50% in coordination of care (as documented) at patient's floor/unit and/or counseling patient: Coding Level of Care Code 92575 Subseq Hosp Care Lvl 3 Diagnoses Atrial flutter with rapid ventricular response I48.92 Chronic obstructive pulmonary disease J44.9 Ischemic cardiomyopathy I25.5 HTN (hypertension) I10 Hypothyroidism E03.9 Benign prostatic hyperplasia with urinary obstruction N40.1; N13.8 Shortness of breath R06.02 Skin rash R21
[2021-06-22] MEDS: TAMSULOSIN HCL 0.4 MG CAP PO SCH (21:41)
[2021-06-22] MEDS: FINASTERIDE 5 MG TAB PO SCH (21:41)
[2021-06-22] MEDS: FLUTICASONE/VILANTEROL 100/25MCG 14 PUFFS/INHALER INH SCH (21:42)
[2021-06-22] MEDS: SILVER SULFADIAZINE 1% CR 50 GM JAR EXT PRN (21:54)
[2021-06-23] MEDS: LEVOTHYROXINE SODIUM 125 MCG TABLET PO SCH (06:12)
[2021-06-23] MEDS: guaiFENesin 600 MG TABCR PO SCH ×2 (08:40→20:39)
[2021-06-23] MEDS: APIXABAN 5 MG TABLET PO SCH ×2 (08:40→20:39)
[2021-06-23] MEDS: METOPROLOL SUCC 50MG EXT REL TAB PO SCH (08:40)
[2021-06-23] MEDS: AMIODARONE 200 MG TAB PO SCH ×2 (08:41→16:09)
[2021-06-23] MEDS: POLYETHYLENE (MIRALAX) 17 GM PACK PO SCH ×2 (08:41→20:38)
[2021-06-23] MEDS: SILVER SULFADIAZINE 1% CR 50 GM JAR EXT PRN (08:42)
[2021-06-23 09:33] LABS: Basophils # (auto) 0.01 K/uL (0-0.2); Basophils % (auto) 0.1 %; Eosinophils # (auto) 0.03 K/uL (0-0.5); Eosinophils % (auto) 0.3 %; Hematocrit (blood only) 41.7 % (42-52); Immature Granulocytes # (auto) 0.05 K/uL (0.00-0.02); Immature Granulocytes % (auto) 0.6 %; Lymphocytes # (auto) 1.17 K/uL (1.2-3.4); Lymphocytes % (auto) 13.6 %; Mean Corpuscular Hemoglobin 26.5 pg (25-34); Mean Corpuscular Hgb Conc 33.6 g/dL (32-36); Mean Corpuscular Volume 78.8 fL (80-100); Mean Platelet Volume 10.1 fL (7.4-10.4); Monocytes # (auto) 0.77 K/uL (0.11-0.59); Monocytes % (auto) 8.9 %; Neutrophils # (auto) 6.58 K/uL (1.4-6.5); Neutrophils % (auto) 76.5 %; Platelet Count 209 K/uL (130-400); RDW Coefficient of Variation 15.2 % (11.5-14.5); Red Blood Count 5.29 M/uL (4.7-6.1); White Blood Count 8.61 K/uL (4.8-10.8)
--- NOTE | 2021-06-23 10:00 | Cardiology Progress Note ---
Date of Service June 23, 2021 Assessment & Plan (1) Atrial flutter with rapid ventricular response: Plan: -converted to sinus rhythm on intravenous amiodarone. -tolerating oral amiodarone without difficulty. -agree with Eliquis as long-term anticoagulant. (2) Ischemic cardiomyopathy: Plan: -continue medical management with metoprolol succinate. -resume lisinopril when able. -LVEF 20-25% with anteroapical wall motion abnormality. -suspect a component of tachycardic induced cardiomyopathy. -will recheck echocardiogram as an outpatient. (3) Acute on chronic respiratory failure with hypoxia and hypercapnia: Plan: -improving on therapy. (4) Coronary artery stenosis: Plan: -LAD stent in 2000. (5) HTN (hypertension): Plan: -adequate control on current regimen. Admission and Anticipated Discharge Date Admission Date: June 20, 2021 Subjective The patient is resting comfortably in bed without complaints chest pain, dyspnea, or palpitations. Physical Exam Physical Exam: In general this is a well-developed well-nourished white male in no acute distress. HEENT exam is negative. Neck reveals normal carotid upstrokes without bruits. No jugular venous distention. There is no thyromegaly. Cardiovascular exam reveals a regular rhythm with a normal S1 and S2. No murmurs, S3, or S4 are noted. Lungs are clear without rales, rhonchi, or wheezes. Abdomen is soft without bruits. Extremities reveal intact radial artery and posterior tibial pulses bilaterally. There is no peripheral edema. Results & Data ([facility]) Vital Signs (Past 12 Hours) Vital Signs Temp Pulse Pulse Resp BP Pulse Ox 06/23/21 08:00 37.0 C 80 18 128/62 94 06/23/21 03:48 36.7 C 80 18 125/74 96 06/23/21 00:24 88 06/22/21 23:01 36.9 C 87 18 105/56 L 94 Diagnostic Findings clinical research monitor notes sinus rhythm. No atrial fibrillation since last evening. PG Care Time/CCT Total # of Minutes Spent Total Time Spent with Patient: Total time spent is greater than 50% in coordination of care (as documented) at patient's floor/unit and/or counseling patient: Coding Level of Care Code 04323 Subseq Hosp Care Lvl 3 Diagnoses Atrial flutter with rapid ventricular response I48.92 Ischemic cardiomyopathy I25.5 Acute on chronic respiratory failure with hypoxia and hypercapnia J96.21; J96.22 Coronary artery stenosis I25.10 HTN (hypertension) I10
[2021-06-23 10:02] LABS: BUN Creatinine Ratio 20.9 (10-20); Calcium 8.2 mg/dl (8.5-10.1); Creatinine Clr Calc Pharmacy 64.5 ml/min; Est GFR (African American) 93.8 ml/min; Potassium 3.7 mmol/L (3.5-5.1)
[2021-06-23] MEDS: FEXOFENADINE HCL 180 MG TAB PO SCH (11:59)
--- NOTE | 2021-06-23 15:20 | Hospitalist Progress Note ---
Date of Service June 23, 2021 Assessment & Plan (1) Atrial flutter with rapid ventricular response: Plan: 81yo male with new onset atrial flutter with RVR, rate of 160's prior to arrival. -Continue Eliquis 5mg PO BID -TTE - LVEF 20-25%, moderately dilated inferior vena cava -More in NSR now on amiodarone. Continue 200mg PO BID -Troponin downtrending consistent with demand-ischemia (2) Shortness of breath: Plan: Unfortunately does not appear to be improving with treatment for a. fib as above. Continue off Incruse Ellipta given prior urinary retention with prior LAMA and patient feels worse on this medication PVR 74ml therefore no urinary retention at present time (3) Shingles: Plan: On discussion with his daughter at bedside and the evolution of this it appears to be consistent with shingles in a right C6 distribution. Initial onset is > 7 days ago (06/15) however had a blister on his back yesterday. Is suspect the blister maybe more related to his heating pad use prior to admission but given possibility of ongoing shingles will treat with Valtrex. Can continue with topical steroid since this is helping with his itching on non- open areas. Appearance is better than yesterday and does not appear cellulitic. (4) Chronic obstructive pulmonary disease: Plan: Patient with history of chronic hypoxic respiratory failure, COPD (postbronchodilator FEV1 32% on 01/05/2019) on home O2. He follows with Pulmonary, last seen 03/31/21. No exacerbation suspected -Continue Budesonide-Formoterol -Continue Guaifenesin -Albuterol nebs PRN -Supplemental O2 a needed for goal SpO2 of 88-92% (5) Ischemic cardiomyopathy: Plan: Patient with history of ischemic cardiomyopathy, EF of 35-40% per echo in August 2018. Presently does not appear to be in failure -Continue Metoprolol as above -Hold Lisinopril -Continue ASA (6) HTN (hypertension): Plan: Chronic. BP soft and will hold lisinopril at this time -Continue Metoprolol as above -Continue to monitor (7) Hypothyroidism: Plan: Chronic. TSH mildly elevated at 5.12 with normal Free T4 of 1.21 -Continue Levothyroxine 125mcg (8) Benign prostatic hyperplasia with urinary obstruction: Plan: Chronic -Continue Finasteride and Flomax -PVR bladder scan normal Plan: VTE prophylaxis - Eliquis Disposition - patient is medically stable for discharge at this time awaiting placement Admission and Anticipated Discharge Date Admission Date: June 20, 2021 Subjective Remains in normal sinus rhythm. Unfortunately no significant change to his shortness of breath. No chest pain, palpitations or leg swelling. No significant change in breathing with holding LAMA PVR bladder scan 74ml Rash onset was just on the right side originally. Although it crosses the midline now he is scratching profusely his back area Review of Systems Review of Systems: All systems reviewed & are unremarkable except as noted in HPI & below Physical Exam Constitutional: well developed; + not well nourished and no acute distress Eyes: + anicteric sclerae; normal pupil size ENMT: Mouth: oral mucous membranes not dry Respiratory: normal respiratory effort; no respiratory distress Auscult ation: + diminished lung sounds (posteriorly poor air entry); no crackles and no wheezes Cardiovascular: Rate/Rhythm: regular rate and regular rhythm Heart Sounds: no murmur Extremities: normal capillary refill; no calf tenderness and no pedal edema Gastrointestinal (Abdomen): normal bowel sounds, soft, nontender, no hepatosplenomegaly Musculoskeletal: no cyanosis or clubbing, extremities motor strength 5/5 Skin: + erythema (back and left arm with excorariation pang, difficult to exclude cellulitis) and + excoriations (back and left arm) Trauma: + evidence of skin trauma (right periorbital) and + abrasion Neurologic: moves all extremities and awake; not confused Psychiatric: A+Ox3, euthymic affect Results & Data Results & Data ([facility]) Vital Signs (Past 12 Hours) Vital Signs Temp Pulse Pulse Resp BP Pulse Ox 06/23/21 12:00 36.8 C 74 20 134/71 95 06/23/21 10:54 77 06/23/21 08:00 37.0 C 80 18 128/62 94 06/23/21 03:48 36.7 C 80 18 125/74 96 PG Care Time/CCT Total # of Minutes Spent Total Time Spent with Patient: Total time spent is greater than 50% in coordination of care (as documented) at patient's floor/unit and/or counseling patient: Coding Level of Care Code 57010 Subseq Hosp Care Lvl 3 Diagnoses Atrial flutter with rapid ventricular response I48.92 Shortness of breath R06.02 Chronic obstructive pulmonary disease J44.9 Ischemic cardiomyopathy I25.5 HTN (hypertension) I10 Hypothyroidism E03.9 Benign prostatic hyperplasia with urinary obstruction N40.1; N13.8 Shingles B02.9
[2021-06-23] MEDS: valACYclovir HCL 500 MG TABLET PO SCH ×2 (16:07→20:38)
[2021-06-23] MEDS: CALCIUM CARBONATE 500 MG CHEWABLE TAB PO PRN (20:37)
[2021-06-23] MEDS: TAMSULOSIN HCL 0.4 MG CAP PO SCH (20:38)
[2021-06-23] MEDS: FLUTICASONE/VILANTEROL 100/25MCG 14 PUFFS/INHALER INH SCH (20:38)
[2021-06-23] MEDS: FINASTERIDE 5 MG TAB PO SCH (20:39)
[2021-06-24] MEDS: LEVOTHYROXINE SODIUM 125 MCG TABLET PO SCH (06:10)
[2021-06-24] MEDS: METOPROLOL SUCC 50MG EXT REL TAB PO SCH (07:33)
[2021-06-24] MEDS: AMIODARONE 200 MG TAB PO SCH ×2 (07:33→17:16)
[2021-06-24] MEDS: APIXABAN 5 MG TABLET PO SCH (07:34)
[2021-06-24] MEDS: guaiFENesin 600 MG TABCR PO SCH (07:34)
[2021-06-24] MEDS: FEXOFENADINE HCL 180 MG TAB PO SCH (07:34)
[2021-06-24] MEDS: POLYETHYLENE (MIRALAX) 17 GM PACK PO SCH (07:35)
[2021-06-24] MEDS: valACYclovir HCL 500 MG TABLET PO SCH ×2 (07:35→13:15)
[2021-06-24 09:04] LABS: Basophils # (auto) 0.01 K/uL (0-0.2); Basophils % (auto) 0.1 %; Eosinophils # (auto) 0.12 K/uL (0-0.5); Eosinophils % (auto) 1.4 %; Hematocrit (blood only) 38.4 % (42-52); Hemoglobin 12.8 g/dL (14.0-18.0); Immature Granulocytes # (auto) 0.04 K/uL (0.00-0.02); Immature Granulocytes % (auto) 0.5 %; Lymphocytes % (auto) 17.7 %; Mean Corpuscular Hemoglobin 26.3 pg (25-34); Mean Corpuscular Hgb Conc 33.3 g/dL (32-36); Mean Platelet Volume 9.4 fL (7.4-10.4); Monocytes # (auto) 0.92 K/uL (0.11-0.59); Monocytes % (auto) 10.8 %; Neutrophils # (auto) 5.89 K/uL (1.4-6.5); Neutrophils % (auto) 69.5 %; Platelet Count 214 K/uL (130-400); RDW Coefficient of Variation 15.1 % (11.5-14.5); RDW Standard Deviation 43.8 fL (36.4-46.3); Red Blood Count 4.86 M/uL (4.7-6.1); White Blood Count 8.48 K/uL (4.8-10.8)
[2021-06-24 09:33] LABS: BUN Creatinine Ratio 18.2 (10-20); Calcium 8.1 mg/dl (8.5-10.1); Creatinine Clr Calc Pharmacy 61.5 ml/min; Est GFR (African American) 92.1 ml/min; Est GFR (Non-African American) 79.4 ml/min; Magnesium 2.1 mg/dl (1.8-2.4)
[2021-06-24 09:35] LABS: C Reactive Protein 9.32 mg/dl (0-0.29)
--- NOTE | 2021-06-24 11:33 | Hospitalist Progress Note ---
Date of Service June 24, 2021 Assessment & Plan (1) Atrial flutter with rapid ventricular response: Plan: 81yo male with new onset atrial flutter with RVR, rate of 160's prior to arrival. -Continue Eliquis 5mg PO BID -TTE - LVEF 20-25%, moderately dilated inferior vena cava -More in NSR now on amiodarone. Continue 200mg PO BID -Troponin downtrending consistent with demand-ischemia (2) Shortness of breath: Plan: Unfortunately does not appear to be improving with treatment for a. fib as above. Continue off Incruse Ellipta given prior urinary retention with prior LAMA and patient feels worse on this medication PVR 74ml therefore no urinary retention at present time (3) Shingles: Plan: On discussion with his daughter at bedside and the evolution of this it appears to be consistent with shingles in a right C6 distribution. Initial onset is > 7 days ago (06/15) however had a blister on his back yesterday. Is suspect the blister maybe more related to his heating pad use prior to admission but given possibility of ongoing shingles will treat with Valtrex. Can continue with topical steroid since this is helping with his itching on non- open areas. Appearance is better than yesterday and does not appear cellulitic. (4) Chronic obstructive pulmonary disease: Plan: Patient with history of chronic hypoxic respiratory failure, COPD (postbronchodilator FEV1 32% on 01/05/2019) on home O2. He follows with Pulmonary, last seen 03/31/21. No exacerbation suspected -Continue Budesonide-Formoterol -Continue Guaifenesin -Albuterol nebs PRN -Supplemental O2 a needed for goal SpO2 of 88-92% (5) Ischemic cardiomyopathy: Plan: Patient with history of ischemic cardiomyopathy, EF of 35-40% per echo in August 2018. Presently does not appear to be in failure -Continue Metoprolol as above -Hold Lisinopril -Continue ASA (6) HTN (hypertension): Plan: Chronic. BP soft and will hold lisinopril at this time -Continue Metoprolol as above -Continue to monitor (7) Hypothyroidism: Plan: Chronic. TSH mildly elevated at 5.12 with normal Free T4 of 1.21 -Continue Levothyroxine 125mcg (8) Benign prostatic hyperplasia with urinary obstruction: Plan: Chronic -Continue Finasteride and Flomax -PVR bladder scan normal Plan: VTE prophylaxis - Eliquis Disposition - patient is medically stable for discharge at this time awaiting placement Admission and Anticipated Discharge Date Admission Date: June 20, 2021 Physical Exam Constitutional: well developed; + not well nourished and no acute distress Eyes: + anicteric sclerae; normal pupil size ENMT: Mouth: oral mucous membranes not dry Respiratory: normal respiratory effort; no respiratory distress Auscultation: + diminished lung sounds (posteriorly poor air entry); no crackles and no wheezes Cardiovascular: Rate/Rhythm: regular rate and regular rhythm Heart Sounds: no murmur Extremities: normal capillary refill; no calf tenderness and no pedal edema Gastrointestinal (Abdomen): normal bowel sounds, soft, nontender, no hepatosplenomegaly Musculoskeletal: no cyanosis or clubbing, extremities motor strength 5/5 Skin: + erythema (back and left arm with excorariation pang, difficult to exclude cellulitis) and + excoriations (back and left arm) Trauma: + evidence of skin trauma (right periorbital) and + abrasion Neurologic: moves all extremities and awake; not confused Psychiatric: A+Ox3, euthymic affect Results & Data Results & Data ([facility]) Vital Signs (Past 12 Hours) Vital Signs Temp Pulse Pulse Pulse Resp BP Pulse Ox 06/24/21 08:20 70 06/24/21 07:31 36.7 C 72 18 111/52 L 96 06/24/21 05:25 81 06/24/21 03:52 37.0 C 73 18 97/47 L 95 06/24/21 00:06 37 C 78 18 96/50 L 93 PG Care Time/CCT Total # of Minutes Spent Total Time Spent with Patient: Total time spent is greater than 50% in coordination of care (as documented) at patient's floor/unit and/or counseling patient: Coding Diagnoses Atrial flutter with rapid ventricular response I48.92 Shortness of breath R06.02 Shingles B02.9 Chronic obstructive pulmonary disease J44.9 Ischemic cardiomyopathy I25.5 HTN (hypertension) I10 Hypothyroidism E03.9 Benign prostatic hyperplasia with urinary obstruction N40.1; N13.8
--- NOTE | 2021-06-24 17:51 | XRay Report ---
XR shoulder LT min 2V routine HISTORY: 81 years-old Male Left shoudler pain r/o fracture acute left shoulder pain with recent fall COMPARISON: Chest radiograph 06/20/2021 TECHNIQUE: 3 views of the left shoulder FINDINGS: Mild rotator cuff calcific tendinosis. Mild glenohumeral and AC joint osteoarthritis. No acute fractu re, dislocation or opaque foreign body. Coronary arterial stent. IMPRESSION: No acute fracture or dislocation. ACT 112: Negative or not required by law. The above report was generated using voice recognition software. It may contain grammatical, syntax o r spelling errors. Electronically signed by: Henry Shane M.D. 06/24/2021 5:49 PM
--- NOTE | 2021-06-24 18:02 | Discharge Summary ---
Date of Service June 24, 2021 Admission HPI Per Admitting Provider Rg Trujillo is an 81yo male with history of HTN, HLP, COPD on 3L home O2, ICM presenting with 1-2 weeks of progressive weakness/fatigue and VILLAFANA/SOB, poor appetite and decreased oral intake. Patient denies fever/chills /cough/palpitations/edema/orthopnea or chest pain. Patient found to be in atrial flutter with HR of 160's by EMS. He was given Diltiazem and IVF en route and started on a Diltiazem gtt in the ER. Patient had a fall at home when he became tangled in his oxygen tubing and fell over a chair. He struck his right eye and possibly left shoulder. He has a large bruise over his left eye. Some abrasion on left shoulder as well. No additional complaints at this time. ER Course: Diltiazem, Heparin, NSS Discharge Data Allergies Allergy/AdvReac Type Severity Reaction Status Date / Time No Known Allergies Allergy Verified 06/20/21 14:14 Consultations 06/20/21 15:20 ED Decision to Admit Stat 06/21/21 11:36 Consult Cardiology Routine Ordered Studies 06/20/21 13:42 CT head/brain wo con Stat Hospital Course (1) Atrial flutter with rapid ventricular response: 81yo male with new onset atrial flutter with RVR, rate of 160's prior to arrival. -Continue Eliquis 5mg PO BID -TTE - LVEF 20-25%, moderately dilated inferior vena cava -More in NSR now on amiodarone. Continue 200mg PO BID -Troponin downtrending consistent with demand-ischemia (2) Shortness of breath: Unfortunately does not appear to be improving with treatment for a. fib as above. Continue off Incruse Ellipta given prior urinary retention with prior LAMA and patient feels worse on this medication PVR 74ml therefore no urinary retention at present time (3) Shingles: On discussion with his daughter at bedside and the evolution of this it appears to be consistent with shingles in a right C6 distribution. Initial onset is > 7 days ago (06/15) however had a blister on his back yesterday. Is suspect the blister maybe more related to his heating pad use prior to admission but given possibility of ongoing shingles will treat with Valtrex. Can continue with topical steroid since this is helping with his itching on non- open areas. Appearance is better than yesterday and does not appear cellulitic. (4) Chronic obstructive pulmonary disease: Patient with history of chronic hypoxic respiratory failure, COPD (postbronchodilator FEV1 32% on 01/05/2019) on home O2. He follows with Pulmonary, last seen 03/31/21. No exacerbation suspected -Continue Budesonide-Formoterol -Continue Guaifenesin -Albuterol nebs PRN -Supplemental O2 a needed for goal SpO2 of 88-92% (5) Ischemic cardiomyopathy: Patient with history of ischemic cardiomyopathy, EF of 35-40% per echo in August 2018. Presently does not appear to be in failure -Continue Metoprolol as above -Hold Lisinopril -Continue ASA (6) HTN (hypertension): Chronic. BP soft and will hold lisinopril at this time -Continue Metoprolol as above -Continue to monitor (7) Hypothyroidism: Chronic. TSH mildly elevated at 5.12 with normal Free T4 of 1.21 -Continue Levothyroxine 125mcg (8) Benign prostatic hyperplasia with urinary obstruction: Chronic -Continue Finasteride and Flomax -PVR bladder scan normal VTE prophylaxis - Eliquis Disposition - patient is medically stable for discharge at this time awaiting placement Discharge Plan Discharge Items Patient Disposition: Transfer Inpatient Rehab Fac Reason For Visit: ATRIAL FLUTTER Discharge Diagnosis: Atrial flutter/fibrillation with RVR Shingles Right rotator cuff injury Activity: Resume your previous activity Non-emergency contact: Primary Care Provider Call non-emergency contact if: you have any medication questions and your symptoms worsen Follow-up/Referrals: Alex Valles MD [Physician] - (4-6 week follow up) Jerad Weems DO [Primary Care Provider] - Diet: Heart Healthy Addtl Attending Provider Instructions: You were admitted to [facility] from June 20 to June 24 due to progressive weakness, fatigue, poor appetite and shortness of breath. You were diagnosed with shingles and atrial flutter/fibrillation with rapid ventricular rate. For the shingles you have been started on Valtrex to take for a total of 7 days, use triamcinolone cream for the itching on non-open areas. For the atrial flutter/fibrillation initial rate control was unsuccessful and you were switched to IV amiodarone which resulted in you staying in yady sinus rhythm. You will continue on amiodarone 200mg PO daily on discharge. For stroke risk reduction you have been started on Eliquis and should continue this indefinitely. This is a blood thinner and if you hit your head while on this medication you must come to the emergency room. Please call your primary care physician is you notice any black stools while on this medication. Please follow up with cardiology in the next 4-6 weeks. You have also been unable to abduct your right shoulder. Suspect this is due to right rotator cuff tear and recommend ongoing physical therapy for this. Pending Studies at Discharge: No Stand-Alone Forms: My [facility] Skilled Items Patient informed of condition?: Yes DNR: Yes Discharge Level of Care: Acute rehab Communicable Disease: Yes Discharge Prognosis: Stable Lines: None Urinary Catheter: No Medications and DC Order Prescriptions: New valacyclovir [Valtrex] 1 gram tablet 1,000 mg PO TID 6 Days Qty: 18 RF: 0 amiodarone 200 mg Tablet 200 mg PO QAM Qty: 30 RF: 0 Eliquis 5 mg Tablet 5 mg PO BID Qty: 60 RF: 0 triamcinolone acetonide 0.1 % cream 1 applic topical BID PRN (Reason: itching) Qty: 30 RF: 0 Continued albuterol sulfate [Ventolin HFA] 90 mcg/actuation HFA aerosol inhaler 2 puff INH QID PRN (Reason: shortness of breath) Qty: 18 RF: 3 Symbicort 160-4.5 mcg/actuation HFA aerosol inhaler 2 puff INH Q12H Qty: 10.2 RF: 2 (DME) Oxygen Home Liters Per Minute See Dose Instructions .ROUTE .MEDSUPPLY Qty: 1 RF: 0 guaifenesin [Mucinex] 600 mg tablet extended release 12hr 600 mg PO Q12H RF: 0 aspirin [Adult Aspirin Regimen] 81 mg tablet,delayed release (DR/EC) 81 mg PO QAM RF: 0 nitroglycerin 0.4 mg Tablet, Sublingual 0.4 mg sublingual Q5M PRN (Reason: Chest Pain) RF: 0 metoprolol succinate 50 mg tablet extended release 24 hr 50 mg PO QAM RF: 0 simvastatin 40 mg tablet 40 mg PO HS RF: 0 tamsulosin 0.4 mg capsule 0.4 mg PO HS RF: 0 levothyroxine 125 mcg tablet 125 mcg PO QAM RF: 0 lisinopril 10 mg tablet 10 mg PO QAM RF: 0 levalbuterol HCl 1.25 mg/3 mL solution for nebulization 1.25 mg INH DIRECTED PRN (Reason: shortness of breath or wheezing) RF: 0 finasteride 5 mg tablet 5 mg PO HS RF: 0 Incruse Ellipta 62.5 mcg/actuation blister with device 1 inh inhalation QAM RF: 0 Discharge Orders: Discharge Order (Routine); Ordered 06/24/21 Ordered By: Edwin Henley Admission Data Admit Date/Time: 06/20/21 15:37 Attending Provider: Edwin Henley Admit Provider: Ayla Juarez Primary Care Provider: Jerad Weems Other Providers: [facility] ; Ayla Juarez ; Alex Valles Other Interventions: Discharge Summary Assessment (RN) Last Done: 06/24/21 17:22 Coding Diagnoses Atrial flutter with rapid ventricular response I48.92 Shortness of breath R06.02 Shingles B02.9 Chronic obstructive pulmonary disease J44.9 Ischemic cardiomyopathy I25.5 HTN (hypertension) I10 Hypothyroidism E03.9 Benign prostatic hyperplasia with urinary obstruction N40.1; N13.8
== END 2021-06-24 18:15 | DRG 308 ==
LOC: ED 13:26 → 2E 15:37 → SUATTDRO 15:37 → 2E 17:10 → 2N 06-24 11:56

== ENCOUNTER 2022-06-23 09:31 | Inpatient (IN) ==
[2022-06-23] MEDS ORDERED: ALBUT/IPRATROP 3MG/0.5MG NEB 3 ML VIAL NEB STA (09:49)
--- NOTE | 2022-06-23 10:00 | XRay Report ---
XR chest 1V portable HISTORY: Atypical Chest Pain COMPARISON: Chest 04/29/2022. FINDINGS: The heart is normal in size. The progressive diffuse interstitial/vascular thickening most pronounced within the right upper lobe. This suggests asymmetric pulmonary edema. There are small norman ateral pleural effusions. Mild emphysema. Calcifications within the aortic knob. There is a healing d isplaced left midshaft humeral fracture. IMPRESSION: 1. Interval progression of the asymmetric pulmonary edema and small bilateral pleural effusions. 2. Healing displaced left midshaft humeral fracture again noted. ACT 112: Negative or not required by law. Electronically signed by: Patrick Navas M.D. 06/23/2022 9:59 AM
--- NOTE | 2022-06-23 10:26 | Emergency Department Note ---
Impression & Plan Acute on chronic respiratory failure, Chronic obstructive pulmonary disease, Acute on chronic systolic heart failure, Elevated troponin ED Provider Note NAME: RODRICK CAT AGE: 82 SEX: M ARRIVES VIA: Ambulance INFORMANT: Patient ED PROVIDER(S): Jonathan Craig MD CHIEF COMPLAINT: SOB PLAN: Disposition: Admit MEDICAL DECISION MAKING: The patient is a pleasant 82-year-old gentleman with a past medical history of CAD, COPD on home oxygen, systolic heart failure/ischemic cardiomyopathy, atrial flutter who presents to the emergency department from home via EMS for worsening shortness of breath which she reports has been ongoing for the past 2 weeks but particularly worse over the past week or so. He reports he does not weigh himself daily but does acknowledge that he has had increased swelling in his legs and so has been increasing his Lasix for this. He denies any productive sputum. He denies nausea, vomiting, diarrhea or urinary symptoms. He denies any acute chest pain, abdominal pain. On arrival the patient is chronically ill moderately dyspneic with increased work of breathing with respiratory rate in the 30s and heart rate in the 100s with O2 saturation 79% on his home 6 L nasal cannula improving to low 90s on oxy-mask but still with increased work of breathing. On exam the patient has scattered wheezes and rhonchi of bilateral lung vo. The patient was placed on BiPAP and given inline DuoNeb and had significant improvement in his work of breathing. EKG without overt acute ischemia. Chest x-ray demonstrates interval progression of asymmetric pulmonary edema and small bilateral pleural effusions. WBC and platelets within normal limits. H/H similar to prior. VBG is unremarkable. Chemistry without metabolic acidosis. Lactic acid 1.5, within normal limits. LFTs unremarkable. Initial high-sensitivity troponin 101, nonspecific. BNP 198, decreased from prior in the 300s. Lipase is not elevated. Procalcitonin is not elevated. TSH within normal limits. Respiratory viral panel/bio fire was negative. Patient's respiratory status continued to be improved on BiPAP. He was given IV Lasix for diuresis. Given asymmetry to the patient's airspace opacities on chest x-ray we will treat with ceftriaxone and doxycycline empirically for CAP, however do suspect CHF likely primary process at this time. Case was discussed with Dr. Pickett, [facility] hospitalist, who will evaluate the patient for admission. Triage Nursing notes reviewed and agree them. Prior medical records reviewed Vital Signs: reviewed and remarkable for tachycardia, tachypnea, hypoxia. Differential diagnosis: Reactive airway disease, pneumonia, pneumothorax, COPD, CHF, infections, cardiac ischemia, pulmonary embolism, musculoskeletal, gastrointestinal, as well as other pathologies. ER treatment provided: See below. Diagnostics interpreted by me: ECG: Sinus rhythm with PVCs, nonspecific intraventricular conduction block, no overt ST elevation, QTC 500, QRS 138. Cardiac Monitoring: An order for continuous cardiac monitoring was placed and demonstrated Sinus rhythm with PVCs, nonspecific intraventricular conduction block. Laboratory studies: See below Imaging studies: See below Consultation(s): Dr. Pickett, [facility] hospitalist. HPI: The patient is a pleasant 82-year-old gentleman with a past medical history of CAD, COPD on home oxygen, systolic heart failure/ischemic cardiomyopathy, atrial flutter who presents to the emergency department from home via EMS for worsening shortness of breath which she reports has been ongoing for the past 2 weeks but particularly worse over the past week or so. He reports he does not weigh himself daily but does acknowledge that he has had increased swelling in his legs and so has been increasing his Lasix for this. He denies any productive sputum. He denies nausea, vomiting, diarrhea or urinary symptoms. He denies any acute chest pain, abdominal pain. ROS: See above HPI for pertinent positives & negatives. A total of 10 systems reviewed and were otherwise negative. VITALS:See Below PHYSICAL EXAMINATION: GENERAL: Awake, alert, chronically ill-appearing, moderately dyspneic, in no distress HENT: Normocephalic, atraumatic. Oropharynx unremarkable. EYES: Normal conjunctiva. Sclera non-icteric. NECK: Supple. No nuchal rigidity. FROM. No JVD. RESPIRATORY: Scattered wheezes and rhonchi bilateral lung vo. Mild inc reased work of breathing. CARDIAC: Regular rate, normal rhythm. Extremities warm and well perfused. Pulses equal. ABDOMEN: Soft, non-distended. No tenderness to palpation. No rebound or guarding. No masses. RECTAL: Deferred. MUSCULOSKELETAL: Chest examination reveals no tenderness. The back is symme trical on inspection without obvious abnormality. There is no CVA tenderness to palpation. No joint edema. LOWER EXTREMITIES: Calves are equal size bilaterally and non-tender. 1+ bilateral lower extremity pedal edema. No discoloration. NEURO: Normal sensorium. No sensory or motor deficits noted. SKIN: No rash or jaundice noted. ED COURSE: Critical Care: I have personally spent greater than 75 minutes of critical care time in the direct management of this patient. This includes bedside care, interpretation of diagnostic studies, and testing, discussion with consultants, patient, and family members, and other required patient management activities. This 75 minutes is in excess of all separately billable procedures. Jonathan Craig MD Past Med/Surg History Medical History Acute on chronic respiratory failure with hypoxia and hypercapnia Chronic dyspnea Chronic hypoxemic respiratory failure Chronic obstructive pulmonary disease Cough Decreased cardiac ejection fraction Dyspnea History of degenerative joint disease HTN (hypertension) Hypercholesterolemia Hypothyroidism Ischemic cardiomyopathy Past myocardial infarction Solitary pulmonary nodule Urinary retention Surgical History History of intravascular stent placement Family History Mother Myocardial infarction Father Acute pneumonitis Asthma Sister Asthma Brother Myocardial infarction Denies family history of Ovarian cancer Prostate cancer Breast cancer Colorectal cancer Social History Smoking Status: Former smoker Tobacco Type: Cigarettes Age Started Using Tobacco: 10; packs per day: 2; Years Smoked: 50; Smoking End Date: 03/2001; Number of Years Since Quit: 21; Second Hand Exposure: No; Hx Alcohol Use: No Hx Substance Use: No Preferred Language: Yakut Communication Ability: Effective Visual Impairment: Limited Hearing Ability: Normal 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 Beliefs That Will Affect Care: None marital status: / Current Living Situation: Alone current occupational status: retired How many Children do You have: 2 Feels Safe at Home: Yes Childhood Exposure to Second-Hand Smoke: Yes caffeine: Yes during the past year weight has: remained stable Dental Care, Regularly: No Physical Activity Frequency: Does not Exercise Seatbelt Use: never Sunscreen Use: No Assistive Devices: None Allergies Allergies Allergy/AdvReac Type Severity Reaction Status Date / Time fluticasone furoate AdvReac cannot void Verified 06/23/22 15:26 [From Anant Hopkins] umeclidinium AdvReac cannot void Verified 06/23/22 15:26 [From Trelegy Ellipta] vilanterol AdvReac cannot void Verified 06/23/22 15:26 [From Trelegy Ellipta] Home Meds Home Medications Medication Instructions Recorded Confirmed aspirin 81 mg tablet,delayed 81 mg PO QAM 06/22/19 04/29/22 release (Adult Aspirin Regimen) guaifenesin 600 mg tablet, 600 mg PO Q12H 08/01/20 04/29/22 extended release 12 hr (Mucinex) nitroglycerin 0.4 mg sublingual 0.4 mg sublingual Q5M PRN Chest 06/20/21 04/29/22 tablet Pain budesonide-formoterol HFA 160 2 inh inhalation Q12H 04/04/22 04/29/22 mcg-4.5 mcg/actuation aerosol inhaler (Symbicort) ezetimibe 10 mg tablet 10 mg PO QAM 04/29/22 04/29/22 finasteride 5 mg tablet 5 mg PO QAM 04/29/22 04/29/22 simvastatin 40 mg tablet 40 mg PO QAM 04/29/22 04/29/22 Previous Rx's Medication Instructions Recorded tamsulosin 0.4 mg capsule 0.4 mg PO HS #90 caps 07/13/21 albuterol sulfate 90 mcg/actuation 2 puff inhalation QID PRN 07/14/21 aerosol inhaler (Ventolin HFA) shortness of breath #18 grams amiodarone 200 mg tablet 200 mg PO QAM #30 tabs 07/31/21 levalbuterol HCl 1.25 mg/3 mL See Rx Instructions .Route 12/21/21 solution for nebulization .COMPLEX #300 mL levothyroxine 150 mcg tablet 150 mcg PO QAM #90 tabs 03/05/22 metoprolol succinate 50 mg 50 mg PO QAM #90 tabs 03/19/22 tablet,extended release 24 hr sacubitril 24 mg-valsartan 26 mg 1 tab PO BID #60 tabs 04/02/22 tablet (Entresto) furosemide 20 mg tablet (Lasix) 20 mg PO DAILY #30 tabs 05/03/22 umeclidinium 62.5 mcg/actuation 1 inh inhalation QAM #30 ea 05/26/22 blister powder for inhalation (Incruse Ellipta) Results & Data (ED) Vital Signs Vital Signs - 24 hr 06/23/22 09:50 06/23/22 09:50 06/23/22 09:58 Temperature 36.7 C Temperature Source Oral Pulse Rate 97 H Pulse Rate [Apical] Pulse Rate from SpO2 Sensor Respiratory Rate 30 H Respiratory Effort / Characteristics Spontaneous Labored Respiratory Depth Respiratory Pattern Rapid/Shallow Blood Pressure 137/59 L Blood Pressure Mean 85 Blood Pressure Position Lying Pulse Oximetry 79 L 92 Oxygen Delivery Method Nasal Cannula Nasal Cannula Oxymask Oxymask Oxygen Flow Rate 6 4 15 Fraction of Inspired Oxygen Sepsis Recent Fever Within 48 Hours No Sepsis New/Unexplained Change in Mental Status No Sepsis Action Taken by Nursing No Action Required Oxygen Flow Rate - Titration 15 Pulse Oximetry Post Tiitration 91 06/23/22 10:01 06/23/22 10:04 06/23/22 10:48 Temperature Temperature Source Pulse Rate 97 H Pulse Rate [Apical] 97 H Pulse Rate from SpO2 Sensor Respiratory Rate 30 H 28 H Respiratory Effort / Characteristics Spontaneous Short of Breath Spontaneous Short of Breath Respiratory Depth Normal Respiratory Pattern Tachypnea Blood Pressure Blood Pressure Mean Blood Pressure Position Pulse Oximetry 97 100 92 Oxygen Delivery Method BiPAP BiPAP Oxygen Flow Rate Fraction of Inspired Oxygen 100 75 Sepsis Recent Fever Within 48 Hours Sepsis New/Unexplained Change in Mental Status Sepsis Action Taken by Nursing Oxygen Flow Rate - Titration Pulse Oximetry Post Tiitration 06/23/22 10:06 06/23/22 10:30 Temperature Temperature Source Pulse Rate 97 H 92 H Pulse Rate [Apical] Pulse Rate from SpO2 Sensor 82 94 H Respiratory Rate 18 22 Respiratory Effort / Characteristics Respiratory Depth Respiratory Pattern Blood Pressure 119/64 Blood Pressure Mean 82 Blood Pressure Position Pulse Oximetry 91 97 Oxygen Delivery Method Oxygen Flow Rate Fraction of Inspired Oxygen Sepsis Recent Fever Within 48 Hours Sepsis New/Unexplained Change in Mental Status Sepsis Action Taken by Nursing Oxygen Flow Rate - Titration Pulse Oximetry Post Tiitration Laboratory Data Attestation: I reviewed the patient's lab results. Result diagrams: 06/23/22 12:15 06/23/22 11:06 Lab Results 06/23/22 06/23/22 06/23/22 Range/Units 11:06 11:06 11:06 WBC Cancelled RBC Cancelled Hgb Cancelled Hct Cancelled MCV Cancelled MCH Cancelled MCHC Cancelled RDW Std Deviation Cancelled RDW Coeff of Chloe Cancelled Plt Count Cancelled MPV Cancelled Immature Gran % (Auto) Cancelled Neut % (Auto) Cancelled Lymph % (Auto) Cancelled Alfalfa % (Auto) Cancelled Eos % (Auto) Cancelled Baso % (Auto) Cancelled Neut # (Auto) Cancelled Lymph # (Auto) Cancelled Alfalfa # (Auto) Cancelled Eos # (Auto) Cancelled Baso # (Auto) Cancelled Immature Gran # (Auto) Cancelled Absolute Nucleated RBC Cancelled Nucleated RBC % (auto) Cancelled Neutrophils % (Manual) Cancelled Band Neutrophils % Cancelled Lymphocytes % (Manual) Cancelled Prolymphocyte % Cancelled Reactive Lymphs % (Man) Cancelled Monocytes % (Manual) Cancelled Eosinophils % (Manual) Cancelled Basophils % (Manual) Cancelled Metamyelocytes % (Man) Cancelled Myelocytes % (Man) Cancelled Promyelocytes % (Man) Cancelled Blast Cells % (Manual) Cancelled Plasma Cell % (Manual) Cancelled Other Cells % Cancelled Nucleated RBC % Cancelled Neutrophils # (Manual) Cancelled Band Neutrophils # Cancelled Total Absolute Neuts Cancelled Lymphocytes # (Manual) Cancelled Prolymphocyte # Cancelled Reactive Lymphs # Cancelled Total Abs Lymphocytes Cancelled Monocytes # (Manual) Cancelled Eosinophils # (Manual) Cancelled Basophils # (Manual) Cancelled Metamyelocytes # (Man) Cancelled Myelocytes # (Manual) Cancelled Promyelocytes # (Man) Cancelled Blast Cells # (Man) Cancelled Plasma Cell # (Manual) Cancelled Other Cells # Cancelled Nucleated RBCs # (Man) Cancelled Hypersegmented Neuts Cancelled Hyposegmented Neuts Cancelled Hypogranular Neuts Cancelled Large Granular Lymphs Cancelled # Lrg Granular Lymphs Cancelled Hairy Cells Cancelled Smudge Cells Cancelled Toxic Granulation Cancelled Toxic Vacuolation Cancelled Dohle Bodies Cancelled Fabi Rods Cancelled Platelet Estimate Cancelled Hypogranular Platelets Cancelled Clumped Platelets Cancelled Giant Platelets Cancelled Platelet Satelliting Cancelled RBC Morphology Cancelled Polychromasia Cancelled Hypochromasia Cancelled Poikilocytosis Cancelled Basophilic Stippling Cancelled Anisocytosis Cancelled Microcytosis Cancelled Macrocytosis Cancelled Spherocytes Cancelled Pappenheimer Bodies Cancelled Sickle Cells Cancelled Target Cells Cancelled Tear Drop Cells Cancelled Ovalocytes Cancelled Stomatocytes Cancelled Delatorre-Oberon Bodies Cancelled Echinocytes Cancelled Acanthocytes (Spur) Cancelled Rouleaux Cancelled RBC Agglutinates Cancelled Schistocytes Cancelled Sezary Cell Cancelled VBG pH (7.36-7.41) VBG pCO2 (38-50) mmHg VBG pO2 mmHg VBG HCO3 mmol/L VBG O2 Saturation % VBG Base Excess mEq/L Sodium 137 (136-145) mmol/L Potassium 3.6 (3.5-5.1) mmol/L Chloride 101 (98-107) mmol/L Carbon Dioxide 29 (21-32) mmol/L Anion Gap 7 (3-11) BUN 22 (6-23) mg/dl Creatinine 1.20 (0.6-1.4) mg/dl Est Cr Clr Drug Dosing 44.3 ml/min Est GFR ( Amer) 64.0 ml/min Est GFR (Non-Af Amer) 55.2 ml/min BUN/Creatinine Ratio 18.3 (10-20) Glucose 115 H (70-99(Fasting)) mg/dl Lactate (0.4-2.0) mmol/L Calcium 8.2 L (8.5-10.1) mg/dl Phosphorus 3.2 (2.5-4.9) mg/dl Magnesium 2.1 (1.7-2.4) mg/dl Iron (35-175) mcg/dl TIBC (250-450) mcg/dl Unsaturated IBC (155-355) mcg/dl Transferrin % Sat (20-50) % Total Bilirubin 0.9 (0.2-1.0) mg/dl AST 19 (13-39) U/L ALT 11 (7-52) U/L Alkaline Phosphatase 68 (34-104) U/L Troponin I High Sens 101.0 H* D (0-20) pg/ml B-Natriuretic Peptide 198 H (0-100) pg/ml Total Protein 6.2 (6.0-8.3) gm/dl Albumin 2.8 L (3.4-5.0) gm/dl Globulin 3.4 (2.5-4.0) gm/dl Albumin/Globulin Ratio 0.8 L (0.9-2) Lipase 5 L (11-82) U/L Procalcitonin (0-0.5) ng/ml TSH (0.300-4.500) uIu/ml Adenovirus (PCR) (NotDetected) B. pertussis DNA (PCR) (NotDetected) B.parapertussis DNA PCR (NotDetected) C. pneumoniae DNA (PCR) (NotDetected) Coronavirus OC43 (PCR) (NotDetected) Coronavirus HKU1 (PCR) (NotDetected) Coronavirus 229E (PCR) (NotDetected) SARS-CoV-2 (PCR) (NotDetected) Coronavirus NL63 (PCR) (NotDetected) Human Metapneumovir PCR (NotDetected) Influenza Type A (PCR) (NotDetected) Influenza Type B (PCR) (NotDetected) M. pneumoniae (PCR) (NotDetected) Parainfluenza 1 (PCR) (NotDetected) Parainfluenza 2 (PCR) (NotDetected) Parainfluenza 3 (PCR) (NotDetected) Parainfluenza 4 (PCR) (NotDetected) RSV (PCR) (NotDetected) Entero/Rhino (PCR) (NotDetected) Blood Parasites ID Cancelled 06/23/22 06/23/22 06/23/22 Range/Units 11:06 11:06 11:06 WBC RBC Hgb Hct MCV MCH MCHC RDW Std Deviation RDW Coeff of Chloe Plt Count MPV Immature Gran % (Auto) Neut % (Auto) Lymph % (Auto) Alfalfa % (Auto) Eos % (Auto) Baso % (Auto) Neut # (Auto) Lymph # (Auto) Alfalfa # (Auto) Eos # (Auto) Baso # (Auto) Immature Gran # (Auto) Absolute Nucleated RBC Nucleated RBC % (auto) Neutrophils % (Manual) Band Neutrophils % Lymphocytes % (Manual) Prolymphocyte % Reactive Lymphs % (Man) Monocytes % (Manual) Eosinophils % (Manual) Basophils % (Manual) Metamyelocytes % (Man) Myelocytes % (Man) Promyelocytes % (Man) Blast Cells % (Manual) Plasma Cell % (Manual) Other Cells % Nucleated RBC % Neutrophils # (Manual) Band Neutrophils # Total Absolute Neuts Lymphocytes # (Manual) Prolymphocyte # Reactive Lymphs # Total Abs Lymphocytes Monocytes # (Manual) Eosinophils # (Manual) Basophils # (Manual) Metamyelocytes # (Man) Myelocytes # (Manual) Promyelocytes # (Man) Blast Cells # (Man) Plasma Cell # (Manual) Other Cells # Nucleated RBCs # (Man) Hypersegmented Neuts Hyposegmented Neuts Hypogranular Neuts Large Granular Lymphs # Lrg Granular Lymphs Hairy Cells Smudge Cells Toxic Granulation Toxic Vacuolation Dohle Bodies Fabi Rods Platelet Estimate Hypogranular Platelets Clumped Platelets Giant Platelets Platelet Satelliting RBC Morphology Polychromasia Hypochromasia Poikilocytosis Basophilic Stippling Anisocytosis Microcytosis Macrocytosis Spherocytes Pappenheimer Bodies Sickle Cells Target Cells Tear Drop Cells Ovalocytes Stomatocytes Delatorre-Oberon Bodies Echinocytes Acanthocytes (Spur) Rouleaux RBC Agglutinates Schistocytes Sezary Cell VBG pH (7.36-7.41) VBG pCO2 (38-50) mmHg VBG pO2 mmHg VBG HCO3 mmol/L VBG O2 Saturation % VBG Base Excess mEq/L Sodium (136-145) mmol/L Potassium (3.5-5.1) mmol/L Chloride (98-107) mmol/L Carbon Dioxide (21-32) mmol/L Anion Gap (3-11) BUN (6-23) mg/dl Creatinine (0.6-1.4) mg/dl Est Cr Clr Drug Dosing ml/min Est GFR ( Amer) ml/min Est GFR (Non-Af Amer) ml/min BUN/Creatinine Ratio (10-20) Glucose (70-99(Fasting)) mg/dl Lactate 1.5 (0.4-2.0) mmol/L Calcium (8.5-10.1) mg/dl Phosphorus (2.5-4.9) mg/dl Magnesium (1.7-2.4) mg/dl Iron (35-175) mcg/dl TIBC (250-450) mcg/dl Unsaturated IBC (155-355) mcg/dl Transferrin % Sat (20-50) % Total Bilirubin (0.2-1.0) mg/dl AST (13-39) U/L ALT (7-52) U/L Alkaline Phosphatase (34-104) U/L Troponin I High Sens (0-20) pg/ml B-Natriuretic Peptide (0-100) pg/ml Total Protein (6.0-8.3) gm/dl Albumin (3.4-5.0) gm/dl Globulin (2.5-4.0) gm/dl Albumin/Globulin Ratio (0.9-2) Lipase (11-82) U/L Procalcitonin 0.11 (0-0.5) ng/ml TSH 4.462 (0.300-4.500) uIu/ml Adenovirus (PCR) (NotDetected) B. pertussis DNA (PCR) (NotDetected) B.parapertussis DNA PCR (NotDetected) C. pneumoniae DNA (PCR) (NotDetected) Coronavirus OC43 (PCR) (NotDetected) Coronavirus HKU1 (PCR) (NotDetected) Coronavirus 229E (PCR) (NotDetected) SARS-CoV-2 (PCR) (NotDetected) Coronavirus NL63 (PCR) (NotDetected) Human Metapneumovir PCR (NotDetected) Influenza Type A (PCR) (NotDetected) Influenza Type B (PCR) (NotDetected) M. pneumoniae (PCR) (NotDetected) Parainfluenza 1 (PCR) (NotDetected) Parainfluenza 2 (PCR) (NotDetected) Parainfluenza 3 (PCR) (NotDetected) Parainfluenza 4 (PCR) (NotDetected) RSV (PCR) (NotDetected) Entero/Rhino (PCR) (NotDetected) Blood Parasites ID 06/23/22 06/23/22 06/23/22 Range/Units 11:06 11:20 11:28 WBC RBC Hgb Hct MCV MCH MCHC RDW Std Deviation RDW Coeff of Chloe Plt Count MPV Immature Gran % (Auto) Neut % (Auto) Lymph % (Auto) Alfalfa % (Auto) Eos % (Auto) Baso % (Auto) Neut # (Auto) Lymph # (Auto) Alfalfa # (Auto) Eos # (Auto) Baso # (Auto) Immature Gran # (Auto) Absolute Nucleated RBC Nucleated RBC % (auto) Neutrophils % (Manual) Band Neutrophils % Lymphocytes % (Manual) Prolymphocyte % Reactive Lymphs % (Man) Monocytes % (Manual) Eosinophils % (Manual) Basophils % (Manual) Metamyelocytes % (Man) Myelocytes % (Man) Promyelocytes % (Man) Blast Cells % (Manual) Plasma Cell % (Manual) Other Cells % Nucleated RBC % Neutrophils # (Manual) Band Neutrophils # Total Absolute Neuts Lymphocytes # (Manual) Prolymphocyte # Reactive Lymphs # Total Abs Lymphocytes Monocytes # (Manual) Eosinophils # (Manual) Basophils # (Manual) Metamyelocytes # (Man) Myelocytes # (Manual) Promyelocytes # (Man) Blast Cells # (Man) Plasma Cell # (Manual) Other Cells # Nucleated RBCs # (Man) Hypersegmented Neuts Hyposegmented Neuts Hypogranular Neuts Large Granular Lymphs # Lrg Granular Lymphs Hairy Cells Smudge Cells Toxic Granulation Toxic Vacuolation Dohle Bodies Fabi Rods Platelet Estimate Hypogranular Platelets Clumped Platelets Giant Platelets Platelet Satelliting RBC Morphology Polychromasia Hypochromasia Poikilocytosis Basophilic Stippling Anisocytosis Microcytosis Macrocytosis Spherocytes Pappenheimer Bodies Sickle Cells Target Cells Tear Drop Cells Ovalocytes Stomatocytes Delatorre-Oberon Bodies Echinocytes Acanthocytes (Spur) Rouleaux RBC Agglutinates Schistocytes Sezary Cell VBG pH 7.40 (7.36-7.41) VBG pCO2 50 (38-50) mmHg VBG pO2 29 mmHg VBG HCO3 31 mmol/L VBG O2 Saturation < 60.0 % VBG Base Excess 5.0 mEq/L Sodium (136-145) mmol/L Potassium (3.5-5.1) mmol/L Chloride (98-107) mmol/L Carbon Dioxide (21-32) mmol/L Anion Gap (3-11) BUN (6-23) mg/dl Creatinine (0.6-1.4) mg/dl Est Cr Clr Drug Dosing ml/min Est GFR ( Amer) ml/min Est GFR (Non-Af Amer) ml/min BUN/Creatinine Ratio (10-20) Glucose (70-99(Fasting)) mg/dl Lactate (0.4-2.0) mmol/L Calcium (8.5-10.1) mg/dl Phosphorus (2.5-4.9) mg/dl Magnesium (1.7-2.4) mg/dl Iron 11 L (35-175) mcg/dl TIBC 174 L (250-450) mcg/dl Unsaturated IBC 163 (155-355) mcg/dl Transferrin % Sat 6 L (20-50) % Total Bilirubin (0.2-1.0) mg/dl AST (13-39) U/L ALT (7-52) U/L Alkaline Phosphatase (34-104) U/L Troponin I High Sens (0-20) pg/ml B-Natriuretic Peptide (0-100) pg/ml Total Protein (6.0-8.3) gm/dl Albumin (3.4-5.0) gm/dl Globulin (2.5-4.0) gm/dl Albumin/Globulin Ratio (0.9-2) Lipase (11-82) U/L Procalcitonin (0-0.5) ng/ml TSH (0.300-4.500) uIu/ml Adenovirus (PCR) Not Detected (NotDetected) B. pertussis DNA (PCR) Not Detected (NotDetected) B.parapertussis DNA PCR Not Detected (NotDetected) C. pneumoniae DNA (PCR) Not Detected (NotDetected) Coronavirus OC43 (PCR) Not Detected (NotDetected) Coronavirus HKU1 (PCR) Not Detected (NotDetected) Coronavirus 229E (PCR) Not Detected (NotDetected) SARS-CoV-2 (PCR) Not Detected (NotDetected) Coronavirus NL63 (PCR) Not Detected (NotDetected) Human Metapneumovir PCR Not Detected (NotDetected) Influenza Type A (PCR) Not Detected (NotDetected) Influenza Type B (PCR) Not Detected (NotDetected) M. pneumoniae (PCR) Not Detected (NotDetected) Parainfluenza 1 (PCR) Not Detected (NotDetected) Parainfluenza 2 (PCR) Not Detected (NotDetected) Parainfluenza 3 (PCR) Not Detected (NotDetected) Parainfluenza 4 (PCR) Not Detected (NotDetected) RSV (PCR) Not Detected (NotDetected) Entero/Rhino (PCR) Not Detected (NotDetected) Blood Parasites ID 06/23/22 Range/Units 12:15 WBC 9.68 RBC 4.66 Hgb 11.2 L Hct 36.4 L MCV 78.1 L MCH 24.0 L MCHC 30.8 L RDW Std Deviation 44.7 RDW Coeff of Chloe 15.9 H Plt Count 261 MPV 9.5 Immature Gran % (Auto) 0.9 Neut % (Auto) 93.1 Lymph % (Auto) 4.4 Alfalfa % (Auto) 1.5 Eos % (Auto) 0.0 Baso % (Auto) 0.1 Neut # (Auto) 9.00 H Lymph # (Auto) 0.43 L Alfalfa # (Auto) 0.15 L Eos # (Auto) 0.00 Baso # (Auto) 0.01 Immature Gran # (Auto) 0.09 H Absolute Nucleated RBC Nucleated RBC % (auto) Neutrophils % (Manual) Band Neutrophils % Lymphocytes % (Manual) Prolymphocyte % Reactive Lymphs % (Man) Monocytes % (Manual) Eosinophils % (Manual) Basophils % (Manual) Metamyelocytes % (Man) Myelocytes % (Man) Promyelocytes % (Man) Blast Cells % (Manual) Plasma Cell % (Manual) Other Cells % Nucleated RBC % Neutrophils # (Manual) Band Neutrophils # Total Absolute Neuts Lymphocytes # (Manual) Prolymphocyte # Reactive Lymphs # Total Abs Lymphocytes Monocytes # (Manual) Eosinophils # (Manual) Basophils # (Manual) Metamyelocytes # (Man) Myelocytes # (Manual) Promyelocytes # (Man) Blast Cells # (Man) Plasma Cell # (Manual) Other Cells # Nucleated RBCs # (Man) Hypersegmented Neuts Hyposegmented Neuts Hypogranular Neuts Large Granular Lymphs # Lrg Granular Lymphs Hairy Cells Smudge Cells Toxic Granulation Toxic Vacuolation Dohle Bodies Fabi Rods Platelet Estimate Hypogranular Platelets Clumped Platelets Giant Platelets Platelet Satelliting RBC Morphology Polychromasia Hypochromasia Poikilocytosis Basophilic Stippling Anisocytosis Microcytosis Macrocytosis Spherocytes Pappenheimer Bodies Sickle Cells Target Cells Tear Drop Cells Ovalocytes Stomatocytes Delatorre-Oberon Bodies Echinocytes Acanthocytes (Spur) Rouleaux RBC Agglutinates [facility] VBG pH (7.36-7.41) VBG pCO2 (38-50) mmHg VBG pO2 mmHg VBG HCO3 mmol/L VBG O2 Saturation % VBG Base Excess mEq/L Sodium (136-145) mmol/L Potassium (3.5-5.1) mmol/L Chloride (98-107) mmol/L Carbon Dioxide (21-32) mmol/L Anion Gap (3-11) BUN (6-23) mg/dl Creatinine (0.6-1.4) mg/dl Est Cr Clr Drug Dosing ml/min Est GFR ( Amer) ml/min Est GFR (Non-Af Amer) ml/min BUN/Creatinine Ratio (10-20) Glucose (70-99(Fasting)) mg/dl Lactate (0.4-2.0) mmol/L Calcium (8.5-10.1) mg/dl Phosphorus (2.5-4.9) mg/dl Magnesium (1.7-2.4) mg/dl Iron (35-175) mcg/dl TIBC (250-450) mcg/dl Unsaturated IBC (155-355) mcg/dl Transferrin % Sat (20-50) % Total Bilirubin (0.2-1.0) mg/dl AST (13-39) U/L ALT (7-52) U/L Alkaline Phosphatase (34-104) U/L Troponin I High Sens (0-20) pg/ml B-Natriuretic Peptide (0-100) pg/ml Total Protein (6.0-8.3) gm/dl Albumin (3.4-5.0) gm/dl Globulin (2.5-4.0) gm/dl Albumin/Globulin Ratio (0.9-2) Lipase (11-82) U/L Procalcitonin (0-0.5) ng/ml TSH (0.300-4.500) uIu/ml Adenovirus (PCR) (NotDetected) B. pertussis DNA (PCR) (NotDetected) B.parapertussis DNA PCR (NotDetected) C. pneumoniae DNA (PCR) (NotDetected) Coronavirus OC43 (PCR) (NotDetected) Coronavirus HKU1 (PCR) (NotDetected) Coronavirus 229E (PCR) (NotDetected) SARS-CoV-2 (PCR) (NotDetected) Coronavirus NL63 (PCR) (NotDetected) Human Metapneumovir PCR (NotDetected) Influenza Type A (PCR) (NotDetected) Influenza Type B (PCR) (NotDetected) M. pneumoniae (PCR) (NotDetected) Parainfluenza 1 (PCR) (NotDetected) Parainfluenza 2 (PCR) (NotDetected) Parainfluenza 3 (PCR) (NotDetected) Parainfluenza 4 (PCR) (NotDetected) RSV (PCR) (NotDetected) Entero/Rhino (PCR) (NotDetected) Blood Parasites ID Administered Medications Discontinued Medications Albuterol (Albut/Ipratrop 3mg/0.5mg Neb 3 Ml Vial) 3 ml NEB NOW STA; Protocol Stop: 06/23/22 09:50 Last Admin: 06/23/22 10:01 Dose: 3 ml Documented By: DARIUSZ Furosemide (Furosemide Inj 20 Mg/2 Ml Vial) 20 mg IV NOW STA Stop: 06/23/22 12:25 Last Admin: 06/23/22 13:28 Dose: 20 mg Documented By: AMOL Furosemide (Furosemide 40 Mg/4 Ml Vial) Confirm Administered Dose 40 mg IV .STAgileMD- MED ONE Stop: 06/23/22 13:01 Last Admin: 06/23/22 13:27 Dose: Not Given Documented By: AMOL Ceftriaxone Sodium (Rocephin) 2,000 mg in 70 mls @ 140 mls/hr IV NOW STA Stop: 06/23/22 12:53 Last Infusion: 06/23/22 14:18 Dose: 0 mls/hr Documented By: Admin: 06/23/22 13:27 Dose: 140 mls/hr Documented By: AMOL Doxycycline Hyclate 100 mg/ (Dextrose) 110 mls @ 50 mls/hr IV NOW STA Stop: 06/23/22 14:38 Last Infusion: 06/23/22 15:58 Dose: 0 mls/hr Documented By: Admin: 06/23/22 13:28 Dose: 50 mls/hr Documented By: AMOL Imaging Data Radiologist's Impression: Chest X-Ray 06/23/22 09:42 XR chest 1V portable HISTORY: Atypical Chest Pain COMPARISON: Chest 04/29/2022. FINDINGS: The heart is normal in size. The progressive diffuse interstitial/vascular thickening most pronounced within the right upper lobe. This suggests asymmetric pulmonary edema. There are small bilateral pleural effusions. Mild emphysema. Calcifications within the aortic knob. There is a healing displaced left midshaft humeral fracture. IMPRESSION: 1. Interval progression of the asymmetric pulmonary edema and small bilateral pleural effusions. 2. Healing displaced left midshaft humeral fracture again noted. ACT 112: Negative or not required by law. Electronically signed by: Patrick Navas M.D. 06/23/2022 9:59 AM Discharge Plan Visit Data Chief Complaint: Shortness of Breath/Dyspnea Stated Complaint: SOB ED Provider: Jonathan Craig Discharge Problem: Acute on chronic respiratory failure, Chronic obstructive pulmonary disease, Acute on chronic systolic heart failure, Elevated troponin Patient Disposition: Admitted As Inpatient Discharge Instructions Interventions: ED Discharge Assessment Last Done: 06/23/22 14:20
--- NOTE | 2022-06-23 11:02 | Electrocardiogram Report ---
Test Reason : Blood Pressure : / mmHG Vent. Rate : 099 BPM Atrial Rate : 089 BPM P-R Int : 000 ms QRS Dur : 138 ms QT Int : 390 ms P-R-T Axes : 048 -87 068 degrees QTc Int : 500 ms Poor data quality, interpretation may be adversely affected Probably sinus with PVCs Left axis deviation Non-specific intra-ventricular conduction block Possible Anterolateral infarct , age undetermined Abnormal ECG When compared with ECG of 29-APR-2022 15:10, Vent. rate has increased BY 33 BPM Confirmed by Douglas Naylor ([id number]) on 06/23/2022 11:02:29 AM Referred By: REFERRED SELF Confirmed By:Mack Naylor
[2022-06-23 11:40] LABS: HCO3 VBG 31 mmol/L; Oxygen Saturation VBG < 60.0 %; PCO2 VBG 50 mmHg (38-50); PO2 VBG 29 mmHg
[2022-06-23 12:13] LABS: Albumin Globulin Ratio 0.8 (0.9-2); Albumin Level 2.8 gm/dl (3.4-5.0); BUN Creatinine Ratio 18.3 (10-20); Bilirubin,Total 0.9 mg/dl (0.2-1.0); Calcium 8.2 mg/dl (8.5-10.1); Creatinine Clr Calc Pharmacy 44.3 ml/min; Est GFR (Non-African American) 55.2 ml/min; Globulin 3.4 gm/dl (2.5-4.0); Magnesium 2.1 mg/dl (1.7-2.4); Phosphorus 3.2 mg/dl (2.5-4.9); Potassium 3.6 mmol/L (3.5-5.1); Total Protein 6.2 gm/dl (6.0-8.3)
[2022-06-23] MEDS ORDERED: cefTRIAXone SODIUM 2,000 MG/70 ML BAG IV STA (12:24)
[2022-06-23] MEDS ORDERED: FUROSEMIDE INJ 20 MG/2 ML VIAL IV STA (12:24)
[2022-06-23] MEDS ORDERED: DOXYCYCLINE HYCLATE 100 MG in DEXTROSE 5% 100 ML IV STA (12:27)
[2022-06-23 12:31] LABS: Hematocrit (blood only) 36.4 % (40.1-51.0); Hemoglobin 11.2 g/dl (14.0-18.0); Mean Corpuscular Hgb Conc 30.8 g/dL (32.0-36.0); Mean Corpuscular Volume 78.1 fL (80.0-100.0); Mean Platelet Volume 9.5 fL (9.4-12.4); Platelet Count 261 K/uL (130-400); RDW Coefficient of Variation 15.9 % (11.5-14.5); RDW Standard Deviation 44.7 fL (36.4-46.3); Red Blood Count 4.66 M/uL (4.63-6.08); White Blood Count 9.68 K/ul (4.8-10.8)
[2022-06-23 12:47] LABS: Adenovirus PCR Not Detected (NotDetected); Bordetella parapertussis PCR Not Detected (NotDetected); Bordetella pertussis PCR Not Detected (NotDetected); Chlamydia pneumoniae PCR Not Detected (NotDetected); Coronavirus 229E PCR Not Detected (NotDetected); Coronavirus CoV-2 (COVID19)PCR Not Detected (NotDetected); Coronavirus HKU1 PCR Not Detected (NotDetected); Coronavirus NL63 PCR Not Detected (NotDetected); Coronavirus OC43PCR Not Detected (NotDetected); Human Metapneumovirus PCR Not Detected (NotDetected); Influenza A PCR Not Detected (NotDetected); Influenza B PCR Not Detected (NotDetected); Mycoplasma pneumoniae PCR Not Detected (NotDetected); Parainfluenza Virus 1 PCR Not Detected (NotDetected); Parainfluenza Virus 2 PCR Not Detected (NotDetected); Parainfluenza Virus 3 PCR Not Detected (NotDetected); Parainfluenza Virus 4 PCR Not Detected (NotDetected); Respiratory Syncytial VirusPCR Not Detected (NotDetected); Rhinovirus/Enterovirus PCR Not Detected (NotDetected)
--- NOTE | 2022-06-23 12:52 | History & Physical Report ---
Date of Service June 23, 2022 Assessment & Plan (1) Acute on chronic systolic heart failure: Plan: Rg Trujillo is an 82-year-old male with a past medical history of CAD with history of PCI, systolic heart failure 2/2 ischemic cardiomyopathy, hypertension, emphysema, hypothyroidism, HLD, COPD, BPH with LUTS, a flutter with RVR, and chronic dyspnea who presented to the emergency department via EMS for 2 weeks of worsening shortness of breath. Acute Dyspnea, AoC CHF rEF ?progressive ischemic cardiomyopathy - Hx PCI in 2000 w/ one stent. On aspirin 81mg. - CXR: Interval progression of the asymmetric pulmonary edema and small bilateral pleural effusions. Healing displaced left midshaft humeral fracture again noted. - No leukocytosis. PCt normal. Empiric doxy/rocphin given in ER, additional deferred to clinical re-eval and progression w/ CHF treatment as noted - Hgb 11, MCV 78.1. Iron studies pending. - HS trop 101, repeat at 2hr pending, q6h x3 f/u trended - BNP 198 (prior 384) - PCT wnl - EKG: similar IV conduction block compared to 06/20/21 EKG segment changes appreciated. QTc prolonged 500ms. Goal Mg 2.0, K 4.0 - ECHO 06/11/22: LVEF 30-35%, LV SF moderate to severely reduced, large area of akinesis of the anterior wall/apex. Compared to 08/21/2018 LV systolic function slightly worse. BSG 115 Creatinine baseline approximately 0.91.2, 1.2 on admission Bio fire negative Continue with Lasix 40 mg IV daily, follow [facility]OP Cardiology consulted for progression of ischemic cardiomyopathy with worsened ECHO, acute on chronic heart failure History of atrial flutter with RVR Continue metoprolol 50 mg every morning Adequately controlled Continue amiodarone 200 mg every morning Anticoagulation previously discontinued and permanently deferred due to recurrent severe bleeding, discussed with pt on admit R Eye discharge - Thick, yellow. Persistent x1 yr, daily discharge which has to be wiped from eye - Has not tried any treatment for this - Surface culture taken - Trial erythromycin ointment HLD Continue Zetia Continue simvastatin COPD - Suspect current sx 2/2 AoC CHF rather than COPD exacerbation Continue budesonideformoterol, umeclidinium Spiriva Nebs as needed SPO2 as needed maintain goal SPO2 88-90% Hypertension Metoprolol, Entresto as above - Lisinopril discontinued at prior outpatient visit. Pts daughter has outdated medlist on phone, did confirm with pt that he is taking entresto bu tnot lisinopril with it at this time Hypothyroidism Last TSH elevated with normal free T4 Repeat pending BPH with LUTS Continue finasteride/tamsulosin DVT PPx: lovenox Diet: HH, low salt CODE STATUS: DNR/DNI, no intubation for worsening respiratory failure per pt & daughter at bedside Dispo: PCU for AoC CHF requiring PPV (2) HTN (hypertension): (3) Vitamin D deficiency: (4) Hypothyroidism: (5) Hypercholesterolemia: (6) Coronary artery stenosis: (7) Chronic obstructive pulmonary disease: (8) Acute on chronic respiratory failure with hypoxia and hypercapnia: (9) Atrial flutter with rapid ventricular response: (10) Chronic obstructive pulmonary disease: (11) Chronic hypoxemic respiratory failure: History of Present Illness Primary Care Provider: Jerad Weems DO Rg Trujillo is an 82-year-old male with a past medical history of CAD with history of PCI, systolic heart failure 2/2 ischemic cardiomyopathy, hypertension, emphysema, hypothyroidism, HLD, COPD, BPH with LUTS, a flutter with RVR, and chronic dyspnea who presented to the emergency department via EMS for 2 weeks of worsening shortness of breath. Is at increased swelling in his legs and increase his home Lasix at home for this without significant improvement. On ER assessment patient was dyspneic with tachypnea to the 30s and mild tachycardia, O2 sat of 79%. He does have a home requirement of 6 L nasal cannula. He was found to have scattered wheezes and rhonchi of the bilateral lung vo, EKG without evidence of acute ischemia. Chest x-ray showed asymmetric pulmonary edema and small bilateral pleural effusions, redemonstrated midshaft humeral fracture healing compared to prior. Last seen by pulmonary 05/03/2022. Was noted to have multifactorial chronic dyspnea and was started on 20 mg Lasix p.o. daily. No evidence of CKD. Was scheduled to have repeat echocardiogram as outpatient to follow EF after starting Entresto. Per ER: Increased WoB, worsened rhonchi w/ asymmetric edema --> covered for PNA. No leukocytosis. Hx COPD --> doxy/rocephin. Doing better on bipap & w/ neb. BNP is down from prior but remains elevated. - No chest pain, EKG similar to prior. Seen in ER w/ Daughter Verna: 'Cant breathe' real bad for last 3 week, seems to be worsened in the last week in particular. +swelling in the legs L usually more than the R. No chest pain, no chest pressure. Has been taking lasix at home for 3 weeks, doesn't think it has helped his breathing but does notice he peeds more when he is on it. No increased wheezing 'feels different than COPD.' Denies dietary indescretion/soup lately, but does drink a lot of soda Shingles 1 year ago. Has had thick discharge from R eye since, has not had it checked. Was told likely chronic 2/2 post-shingles. Wipes eye several times per day. Medical History: Reviewed Medications: Reviewed Surgical History: Reviewed Allergies: Reviewed. NKDA. Social History: Former smoker. Denies recent tobacco/etoh use. Code Status: DNR/DNI. No intubtation for declining respiratory status. Allergies Allergy/AdvReac Type Severity Reaction Status Date / Time No Known Allergies Allergy Verified 04/29/22 15:29 Home Medications Medication Instructions Recorded Confirmed Type aspirin 81 mg tablet,delayed 81 mg PO QAM 06/22/19 04/29/22 History release (Adult Aspirin Regimen) guaifenesin 600 mg tablet, 600 mg PO Q12H 08/01/20 04/29/22 History extended release 12 hr (Mucinex) nitroglycerin 0.4 mg sublingual 0.4 mg sublingual Q5M PRN Chest 06/20/21 04/29/22 History tablet Pain tamsulosin 0.4 mg capsule 0.4 mg PO HS #90 caps 07/13/21 04/29/22 Rx albuterol sulfate 90 mcg/actuation 2 puff inhalation QID PRN 07/14/21 04/29/22 Rx aerosol inhaler (Ventolin HFA) shortness of breath #18 grams amiodarone 200 mg tablet 200 mg PO QAM #30 tabs 07/31/21 04/29/22 Rx levalbuterol HCl 1.25 mg/3 mL See Rx Instructions .Route 12/21/21 04/29/22 Rx solution for nebulization .COMPLEX #300 mL levothyroxine 150 mcg tablet 150 mcg PO QAM #90 tabs 03/05/22 04/29/22 Rx metoprolol succinate 50 mg 50 mg PO QAM #90 tabs 03/19/22 04/29/22 Rx tablet,extended release 24 hr sacubitril 24 mg-valsartan 26 mg 1 tab PO BID #60 tabs 04/02/22 04/29/22 Rx tablet (Entresto) budesonide-formoterol HFA 160 2 inh inhalation Q12H 04/04/22 04/29/22 History mcg-4.5 mcg/actuation aerosol inhaler (Symbicort) ezetimibe 10 mg tablet 10 mg PO QAM 04/29/22 04/29/22 History finasteride 5 mg tablet 5 mg PO QAM 04/29/22 04/29/22 History simvastatin 40 mg tablet 40 mg PO QAM 04/29/22 04/29/22 History furosemide 20 mg tablet (Lasix) 20 mg PO DAILY #30 tabs 05/03/22 05/03/22 Rx umeclidinium 62.5 mcg/actuation 1 inh inhalation QAM #30 ea 05/26/22 Rx blister powder for inhalation (Incruse Ellipta) Past Med/Surg History Medical History Acute on chronic respiratory failure with hypoxia and hypercapnia Chronic dyspnea Chronic hypoxemic respiratory failure Chronic obstructive pulmonary disease Cough Decreased cardiac ejection fraction Dyspnea History of degenerative joint disease HTN (hypertension) Hypercholesterolemia Hypothyroidism Ischemic cardiomyopathy Past myocardial infarction Solitary pulmonary nodule Urinary retention Surgical History History of intravascular stent placement Family History Mother Myocardial infarction Father Acute pneumonitis Asthma Sister Asthma Brother Myocardial infarction Denies family history of Ovarian cancer Prostate cancer Breast cancer Colorectal cancer Social History Smoking Status: Former smoker Tobacco Type: Cigarettes Age Started Using Tobacco: 10; packs per day: 2; Years Smoked: 50; Number of Years Since Quit: 21; Second Hand Exposure: No; Hx Alcohol Use: No Hx Substance Use: No Preferred Language: Vietnamese Communication Ability: Effective Visual Impairment: Limited Hearing Ability: Normal 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: No Beliefs That Will Affect Care: None marital status: / Current Living Situation: Alone current occupational status: retired How many Children do You have: 2 Feels Safe at Home: Yes Childhood Exposure to Second-Hand Smoke: Yes caffeine: Yes during the past year weight has: remained stable Dental Care, Regularly: No Physical Activity Frequency: Does not Exercise Seatbelt Use: never Sunscreen Use: No Assistive Devices: Denture - Upper, Denture - Lower and Oxygen - Continuous Review of Systems Review of Systems: All systems reviewed & are unremarkable except as noted in Subjective Physical Exam Physical Exam: General: A&Ox3. NAD. Cooperative. HEENT: Atraumatic, normocephalic. Vision.hearing grossly intact. PERLAA. R eye with thick yellow discharge from lateral canthus, no dacrocystitis appreciated on palpation. Pulm: Moderate air movement on PPV, Diffusely coarse in the bases, R>L crackles. Symmetrical chest rise. Cardiac: regular, tachycardic, +soft sm. Radial pulses intact and symmetrical. Abdominal: Nontender, nondistended, soft. BS present. Ext: L>R pitting 1+ LE edema. Sensation to soft touch intact in hands and feet without asymmetry. 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 L proximal arm in hard removable cast + sling. Results & Data Results & Data ([facility]) Vital Signs (Past 12 Hours) Vital Signs Temp Pulse Pulse Resp BP Pulse Ox O2 Del Method 06/23/22 10:30 92 H 22 119/64 97 06/23/22 10:06 97 H 18 91 06/23/22 10:48 92 BiPAP 06/23/22 10:04 97 H 28 H 100 06/23/22 10:01 97 H 30 H 97 BiPAP 06/23/22 09:58 36.7 C 97 H 30 H 137/59 L 92 Oxymask 06/23/22 09:50 79 L Nasal Cannula, Oxymask 06/23/22 09:50 Nasal Cannula O2 Flow Rate FiO2 06/23/22 10:30 06/23/22 10:06 06/23/22 10:48 06/23/22 10:04 75 06/23/22 10:01 100 06/23/22 09:58 15 06/23/22 09:50 4 06/23/22 09:50 6 PG Care Time/CCT Total # of Minutes Spent Total Time Spent with Patient: Total time spent is greater than 50% in coordination of care (as documented) at patient's floor/unit and/or counseling patient: Coding Level of Care Code 02090 Initial Inpt Care Lvl 3 Diagnoses Acute on chronic systolic heart failure I50.23 HTN (hypertension) I10 Vitamin D deficiency E55.9 Hypothyroidism E03.9 Hypercholesterolemia E78.00 Coronary artery stenosis I25.10 Chronic obstructive pulmonary disease J44.9 Acute on chronic respiratory failure with hypoxia and hypercapnia J96.21; J96.22 Atrial flutter with rapid ventricular response I48.92 Chronic obstructive pulmonary disease J44.9 COPD type: unspecified COPD Chronic hypoxemic respiratory failure J96.11 (1) Chronic obstructive pulmonary disease COPD type: unspecified COPD Qualified Code(s): J44.9 - Chronic obstructive pulmonary disease, unspecified
[2022-06-23 12:54] LABS: Basophils # (auto) 0.01 K/uL (0-0.2); Basophils % (auto) 0.1 %; Immature Granulocytes # (auto) 0.09 K/uL (0.00-0.02); Immature Granulocytes % (auto) 0.9 %; Lymphocytes # (auto) 0.43 K/uL (1.2-3.4); Lymphocytes % (auto) 4.4 %; Monocytes # (auto) 0.15 K/uL (0.24-0.82); Monocytes % (auto) 1.5 %; Neutrophils % (auto) 93.1 %
[2022-06-23] MEDS ORDERED: FUROSEMIDE 40 MG/4 ML VIAL IV ONE (13:00)
[2022-06-23] MEDS ORDERED: ACETAMINOPHEN 325 MG TAB PO PRN (14:21)
[2022-06-23] MEDS ORDERED: NITROGLYCERIN SL 0.4 MG/TAB TAB SL PRN (14:21)
[2022-06-23] MEDS ORDERED: POLYETHYLENE (MIRALAX) 17 GM PACK PO PRN (14:21)
[2022-06-23] MEDS ORDERED: guaiFENesin 600 MG TABCR PO PRN (14:21)
[2022-06-23 14:54] LABS: Iron 11 mcg/dl (35-175); Total Iron Binding Cap Calc 174 mcg/dl (250-450); Transferrin (FE) Percent Satur 6 % (20-50); Unsaturated Iron Binding Cap 163 mcg/dl (155-355)
[2022-06-23] MEDS: ENOXAPARIN INJ 40 MG/0.4 ML SYR SQ SCH (16:47)
[2022-06-23] MEDS: ERYTHROMYCIN OP OINT 1 GM PKT OP SCH ×2 (18:27→22:04)
[2022-06-23] MEDS: TAMSULOSIN HCL 0.4 MG CAP PO SCH (22:04)
[2022-06-23] MEDS: VALSARTAN/SACUBITRIL 26/24MG TAB PO SCH (22:04)
[2022-06-24 04:29] LABS: Hematocrit (blood only) 33.2 % (40.1-51.0); Hemoglobin 10.2 g/dl (14.0-18.0); Immature Granulocytes % (auto) 1.8 %; Lymphocytes # (auto) 0.75 K/uL (1.2-3.4); Lymphocytes % (auto) 13.6 %; Mean Corpuscular Hemoglobin 24.2 pg (25.0-34.0); Mean Corpuscular Hgb Conc 30.7 g/dL (32.0-36.0); Mean Corpuscular Volume 78.7 fL (80.0-100.0); Mean Platelet Volume 9.6 fL (9.4-12.4); Monocytes # (auto) 0.28 K/uL (0.24-0.82); Monocytes % (auto) 5.1 %; Neutrophils # (auto) 4.38 K/uL (1.4-6.5); Neutrophils % (auto) 79.5 %; Platelet Count 246 K/uL (130-400); RDW Coefficient of Variation 15.8 % (11.5-14.5); RDW Standard Deviation 44.8 fL (36.4-46.3); Red Blood Count 4.22 M/uL (4.63-6.08); White Blood Count 5.51 K/ul (4.8-10.8)
[2022-06-24 04:55] LABS: Calcium 8.2 mg/dl (8.5-10.1); Creatinine Clr Calc Pharmacy 51.2 ml/min; Est GFR (African American) 76.1 ml/min; Est GFR (Non-African American) 65.6 ml/min; Magnesium 2.2 mg/dl (1.7-2.4); Potassium 3.9 mmol/L (3.5-5.1)
[2022-06-24 05:10] LABS: Troponin I High Sensitivity 72.7 pg/ml (0-20)
[2022-06-24] MEDS: LEVOTHYROXINE SODIUM 150 MCG TABLET PO SCH (06:10)
[2022-06-24] MEDS: VALSARTAN/SACUBITRIL 26/24MG TAB PO SCH ×2 (08:36→19:57)
[2022-06-24] MEDS: METOPROLOL SUCC 50MG EXT REL TAB PO SCH ×2 (08:36→13:16)
[2022-06-24] MEDS: AMIODARONE 200 MG TAB PO SCH (08:36)
[2022-06-24] MEDS: ERYTHROMYCIN OP OINT 1 GM PKT OP SCH ×4 (08:36→19:57)
[2022-06-24] MEDS: EZETIMIBE 10 MG TABLET PO SCH (08:36)
[2022-06-24] MEDS: SIMVASTATIN 20 MG TAB PO SCH (08:36)
[2022-06-24] MEDS: ASPIRIN 81 MG ECTAB PO SCH (08:37)
[2022-06-24] MEDS: FUROSEMIDE 40 MG/4 ML VIAL IV SCH ×2 (08:37→09:04)
[2022-06-24] MEDS: FINASTERIDE 5 MG TAB PO SCH (08:37)
[2022-06-24] MEDS: FLUTICASONE/VILANTEROL 200/25MCG 14 PUFFS/INHALER INH SCH (08:38)
[2022-06-24] MEDS: UMECLIDINIUM BROMIDE 62.5MCG/BLISTER 7 PUFFS/INHALER INH SCH (08:38)
--- NOTE | 2022-06-24 10:22 | Cardiology Consultation ---
Date of Consultation June 24, 2022 Assessment & Plan (1) Acute on chronic respiratory failure: -etiology likely multifactorial related to his end-stage COPD and chronic systolic CHF. -agree with intravenous furosemide. (2) Elevated troponin: -likely a supply demand mismatch. -do not suspect acute coronary ischemia. (3) Coronary artery stenosis: -acute anterior wall OH with LAD stent, 2000 -continue medical management. (4) Ischemic cardiomyopathy: -LVEF 30-35% on echocardiogram last month. -this represents an improvement as LVEF was 20-25% in June 2021. -continue Entresto and metoprolol succinate. (5) Paroxysmal atrial flutter: -remains in sinus rhythm on amiodarone. -TSH and liver transaminases are normal. -patient discontinued long-term anticoagulation due to bleeding hemorrhoids. History of Present Illness Attending Physician: Jacques oKch MD History of Present Illness Mr. Trujillo is an 82-year-old male admitted yesterday with respiratory failure. This consultation was ordered to assistance cardiac management. Of note, patient is well known to me from the outpatient setting. The patient was in his usual state of health until approximately 2-3 weeks ago. He began to note progressive shortness of breath with exertion. However, on the day of presentation he noted shortness of breath at rest. At no time has he experienced angina pectoris. He denies PND, orthopnea, and lower extremity edema. He does carry history of coronary artery disease. He suffered an anterior OH and required a stent within the LAD back in 2000. Following the event, he developed left ventricular dysfunction with an anteroapical wall motion abnormality. An echocardiogram performed in June 2021 noted ejection fraction of 20-25%. His lisinopril was changed to Entresto back in March. An e chocardiogram performed on June 11 of this year noted an ejection fraction of 30-35% with the known anteroapical wall motion abnormality. The patient was diagnosed with paroxysmal atrial flutter back in June of 2021. He was started on amiodarone at that time and has remained in sinus rhythm. He does not take long-term anticoagulation as this causes significant bleeding from his hemorrhoids. He understands the consequences of his decision. Currently, patient is resting comfortably in bed without complaints. Past medical and surgical history 1. Coronary artery disease-see above 2. LAD stent -2000 3. Ischemic fcreesspknejhy-01-62%, May 2022 4. Paroxysmal atrial flutter-June 2021 5. Hypertension 6. Hypercholesterolemia 7. COPD 8. Chronic respiratory failure 9. Hypothyroidism 10. Pulmonary nodule 11. BPH 12. Vitamin-D deficiency Social history , lives alone Quit tobacco in 2002, 50 pack year history No alcohol Family history Noncontributory Review of systems A 10 review systems was undertaken and negative except that described above. Allergies Allergy/AdvReac Type Severity Reaction Status Date / Time fluticasone furoate AdvReac cannot void Verified 06/23/22 15:26 [From Trelegy Ellipta] umeclidinium AdvReac cannot void Verified 06/23/22 15:26 [From Trelegy Ellipta] vilanterol AdvReac cannot void Verified 06/23/22 15:26 [From Trelegy Ellipta] Home Medications Medication Instructions Recorded Confirmed Type aspirin 81 mg tablet,delayed 81 mg PO QAM 06/22/19 06/23/22 History release (Adult Aspirin Regimen) guaifenesin 600 mg tablet, 600 mg PO Q12H 08/01/20 06/23/22 History extended release 12 hr (Mucinex) nitroglycerin 0.4 mg sublingual 0.4 mg sublingual Q5M PRN Chest 06/20/21 06/23/22 History tablet Pain tamsulosin 0.4 mg capsule 0.4 mg PO HS #90 caps 07/13/21 06/23/22 Rx albuterol sulfate 90 mcg/actuation 2 puff inhalation QID PRN 07/14/21 06/23/22 Rx aerosol inhaler (Ventolin HFA) shortness of breath #18 grams amiodarone 200 mg tablet 200 mg PO QAM #30 tabs 07/31/21 06/23/22 Rx levalbuterol HCl 1.25 mg/3 mL See Rx Instructions .Route 12/21/21 06/23/22 Rx solution for nebulization .COMPLEX #300 mL levothyroxine 150 mcg tablet 150 mcg PO QAM #90 tabs 03/05/22 06/23/22 Rx metoprolol succinate 50 mg 50 mg PO QAM #90 tabs 03/19/22 06/23/22 Rx tablet,extended release 24 hr sacubitril 24 mg-valsartan 26 mg 1 tab PO BID #60 tabs 04/02/22 06/23/22 Rx tablet (Entresto) budesonide-formoterol HFA 160 2 inh inhalation Q12H 04/04/22 06/23/22 History mcg-4.5 mcg/actuation aerosol inhaler (Symbicort) ezetimibe 10 mg tablet 10 mg PO QAM 04/29/22 06/23/22 History finasteride 5 mg tablet 5 mg PO QAM 04/29/22 06/23/22 History simvastatin 40 mg tablet 40 mg PO QPM 04/29/22 06/23/22 History furosemide 20 mg tablet (Lasix) 20 mg PO DAILY #30 tabs 05/03/22 06/23/22 Rx umeclidinium 62.5 mcg/actuation 1 inh inhalation QAM #30 ea 05/26/22 06/23/22 Rx blister powder for inhalation (Incruse Ellipta) Patient History Medical History Acute on chronic respiratory failure with hypoxia and hypercapnia Chronic dyspnea Chronic hypoxemic respiratory failure Chronic obstructive pulmonary disease Cough Decreased cardiac ejection fraction Dyspnea History of degenerative joint disease HTN (hypertension) Hypercholesterolemia Hypothyroidism Ischemic cardiomyopathy Past myocardial infarction Solitary pulmonary nodule Urinary retention Surgical History History of intravascular stent placement Family History Mother Myocardial infarction Father Acute pneumonitis Asthma Sister Asthma Brother Myocardial infarction Denies family history of Ovarian cancer Prostate cancer Breast cancer Colorectal cancer Social History Smoking Status: Former smoker Tobacco Type: Cigarettes Age Started Using Tobacco: 10; packs per day: 2; Years Smoked: 50; Smoking End Date: 03/2001; Number of Years Since Quit: 21; Second Hand Exposure: No; Hx Alcohol Use: No Hx Substance Use: No Preferred Language: Romansh Communication Ability: Effective Visual Impairment: Limited Hearing Ability: Normal 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 HEENT exam is negative. Neck reveals normal carotid upstrokes without bruits. No JVD. There is no thyromegaly. Cardiovascular exam reveals a regular rhythm with a normal S1 and S2. No murmurs, S3, or S4 are noted. Lungs are clear without rales, rhonchi, or wheezes. Abdomen is soft without bruits. Extremities reveal intact radial artery and posterior tibial pulses bilaterally. There is no peripheral edema. Results & Data ([facility]) Vital Signs (Past 12 Hours) Vital Signs Pulse Resp BP Pulse Ox O2 Del Method FiO2 06/24/22 10:13 77 20 95 06/24/22 06:00 64 18 95 BiPAP 50 06/24/22 05:00 75 15 96 06/24/22 04:00 78 17 92 06/24/22 04:00 113/58 L 06/24/22 02:00 71 19 92 06/24/22 00:00 75 14 95 06/24/22 00:00 99/56 L 06/23/22 23:08 112/68 06/23/22 23:08 84 21 06/23/22 23:00 96 06/24/22 03:02 83 21 94 40 06/24/22 02:43 86 06/23/22 23:48 BiPAP 50 06/23/22 23:11 87 22 94 50 Laboratory Results CBC notes hemoglobin 10.2, hematocrit 33.2, white count 5.5, and platelet count [id number]. Electrolytes note a sodium of 138, potassium 3.9, chloride 100, bicarb 32, BUN 25, creatinine 1.04, glucose of 114. Initial high sensitivity troponin was 101 with follow-up values of 100.5, 83.9, and 72.7. BNP was mildly elevated 198. TSH is normal at 4.46. Liver transaminases were normal. Diagnostic Findings EKG notes sinus rhythm with frequent PVCs and nonspecific interventricular conduction delay. There is poor R-wave progression across the anterior precordium. Chest x-ray suggests pulmonary edema. PG Care Time/CCT Total # of Minutes Spent Total Time Spent with Patient: Total time spent is greater than 50% in coordination of care (as documented) at patient's floor/unit and/or counseling patient: Coding Level of Care Code 06598 Initial Inpt Care Lvl 3 Diagnoses Acute on chronic respiratory failure J96.20 Elevated troponin R77.8 Coronary artery stenosis I25.10 Ischemic cardiomyopathy I25.5 Paroxysmal atrial flutter I48.92
--- NOTE | 2022-06-24 12:58 | Hospitalist Progress Note ---
Date of Service June 24, 2022 Assessment & Plan (1) Acute on chronic systolic heart failure: Plan: Rg Trujillo is an 82-year-old male with a past medical history of CAD with history of PCI, systolic heart failure 2/2 ischemic cardiomyopathy, hypertension, emphysema, hypothyroidism, HLD, COPD, BPH with LUTS, a flutter with RVR, and chronic dyspnea who presented to the emergency department via EMS for 2 weeks of worsening shortness of breath. Says he uses about 4 L of oxygen at home Acute on chronic CHF - Hx PCI in 2000 w/ one stent. On aspirin 81mg. - CXR shows Interval progression of the asymmetric pulmonary edema and small bilateral pleural effusions. Healing displaced left midshaft humeral fracture again noted. - Hgb 11, MCV 78.1. Iron studies pending. - HS trop 101, repeat at 2hr pending, q6h x3 f/u trended - BNP 198 (prior 384) - PCT wnl - EKG: similar IV conduction block compared to 06/20/21 EKG segment changes appreciated. QTc prolonged 500ms. Goal Mg 2.0, K 4.0 - ECHO 06/11/22: LVEF 30-35%, LV SF moderate to severely reduced, large area of akinesis of the anterior wall/apex. Compared to 08/21/2018 LV systolic function slightly worse. BSG 115 Currently on IV Lasix 40mg daily, will continue Monitor I/O, daily weight Cardiology consulted for progression of ischemic cardiomyopathy with worsened ECHO, acute on chronic heart failure History of atrial flutter with RVR Continue metoprolol 50 mg every morning Adequately controlled Continue amiodarone 200 mg every morning Anticoagulation previously discontinued and permanently deferred due to recurrent severe bleeding, discussed with pt on admit R Eye discharge - Thick, yellow. Persistent x1 yr, daily discharge which has to be wiped from eye - Has not tried any treatment for this - Surface culture taken - Trial erythromycin ointment HLD Continue Zetia Continue simvastatin COPD - Suspect current sx 2/2 AoC CHF rather than COPD exacerbation Continue budesonideformoterol, umeclidinium Spiriva Nebs as needed SPO2 as needed maintain goal SPO2 88-90% -At baseline, uses 4L of oxygen, currently on10L through oxymask Hypertension Metoprolol, Entresto as above - Lisinopril discontinued at prior outpatient visit. Pts daughter has outdated medlist on phone, did confirm with pt that he is taking entresto bu tnot lisinopril with it at this time Hypothyroidism Last TSH elevated with normal free T4 Repeat pending BPH with LUTS Continue finasteride/tamsulosin DVT PPx: lovenox Diet: HH, low salt CODE STATUS: DNR/DNI, no intubation for worsening respiratory failure per pt & daughter at bedside Dispo: PCU for AoC CHF requiring PPV (2) HTN (hypertension): (3) Vitamin D deficiency: (4) Hypothyroidism: (5) Hypercholesterolemia: (6) Coronary artery stenosis: (7) Chronic obstructive pulmonary disease: (8) Acute on chronic respiratory failure with hypoxia and hypercapnia: (9) Atrial flutter with rapid ventricular response: (10) Chronic hypoxemic respiratory failure: Admission and Anticipated Discharge Date Admission Date: June 23, 2022 Subjective Patient seen and examined today, currently on 3 L through oxygen mask, states he wears 4 L at home Review of Systems Review of Systems: All systems reviewed are negative, apart from the ones contained in the history. Physical Exam Physical Exam: The patient is awake, alert and oriented 3, well developed and well nourished, normocephalic and atraumatic, lying in bed and in no acute distress. HEENT--PERRL, EOMI, mucous membranes and oropharynx mildly dry Neck--supple. No JVD. No bruits. Thyroid normal, trachea midline, no adenopathy. Heart--normal S1 and S2. No murmurs, rubs or gallops. Lungs--Reduced air entry, crackles Abdomen--normal bowel sounds and soft. Mild epigastric and left sided abdominal pain Extremities--no cyanosis or clubbing. No edema. Dermatologic--normal skin turgor, normal color, no abnormal lymph nodes, no rash. Neurologic--cranial nerves II through XII grossly intact. Rheumatologic--normal range of motion. Psychiatric--normal affect. Results & Data Results & Data ([facility]) Vital Signs (Past 12 Hours) Vital Signs Temp Pulse Pulse Resp BP BP Pulse Ox 06/24/22 12:25 06/24/22 11:15 97.5 F L 81 18 95/49 L 94 06/24/22 11:00 78 16 95 06/24/22 10:55 95/49 L 08/04/22 10:55 80 17 94 06/24/22 10:30 86 19 93 06/24/22 10:00 74 22 93 06/24/22 09:30 68 14 94 06/24/22 09:00 79 19 93 06/24/22 08:46 80 24 92 06/24/22 08:46 92/51 L 06/24/22 08:40 87/48 L 06/24/22 08:40 77 18 95 06/24/22 08:30 72 18 95 06/24/22 08:00 81 13 06/24/22 08:00 86/54 L 06/24/22 07:30 90 25 H 92 06/24/22 07:15 81 18 100 06/24/22 07:15 113/62 06/24/22 07:00 61 22 97 06/24/22 06:30 61 16 97 06/24/22 10:13 77 20 95 06/24/22 06:00 64 18 95 06/24/22 05:00 75 15 96 06/24/22 04:00 78 17 92 06/24/22 04:00 113/58 L 06/24/22 02:00 71 19 92 06/24/22 03:02 83 21 94 06/24/22 02:43 86 O2 Del Method O2 Flow Rate FiO2 06/24/22 12:25 Oxymask 10 06/24/22 11:15 Oxymask 10 06/24/22 11:00 06/24/22 10:55 06/24/22 10:55 06/24/22 10:30 06/24/22 10:00 06/24/22 09:30 06/24/22 09:00 06/24/22 08:46 06/24/22 08:46 06/24/22 08:40 06/24/22 08:40 06/24/22 08:30 06/24/22 08:00 06/24/22 08:00 06/24/22 07:30 06/24/22 07:15 06/24/22 07:15 06/24/22 07:00 06/24/22 06:30 06/24/22 10:13 06/24/22 06:00 BiPAP 50 06/24/22 05:00 06/24/22 04:00 06/24/22 04:00 06/24/22 02:00 06/24/22 03:02 40 06/24/22 02:43 PG Care Time/CCT Total # of Minutes Spent Total Time Spent with Patient: Total time spent is greater than 50% in coordination of care (as documented) at patient's floor/unit and/or counseling patient: Coding Level of Care Code 99066 Subseq Hosp Care Lvl 2 Diagnoses Acute on chronic systolic heart failure I50.23 HTN (hypertension) I10 Vitamin D deficiency E55.9 Hypothyroidism E03.9 Hypercholesterolemia E78.00 Coronary artery stenosis I25.10 Chronic obstructive pulmonary disease J44.9 Acute on chronic respiratory failure with hypoxia and hypercapnia J96.21; J96.22 Atrial flutter with rapid ventricular response I48.92 Chronic hypoxemic respiratory failure J96.11 Time Spent (min) 35
[2022-06-24] MEDS: ENOXAPARIN INJ 40 MG/0.4 ML SYR SQ SCH (15:01)
[2022-06-24] MEDS: TAMSULOSIN HCL 0.4 MG CAP PO SCH (19:57)
[2022-06-25] MEDS: LEVOTHYROXINE SODIUM 150 MCG TABLET PO SCH (05:41)
[2022-06-25] MEDS: SIMVASTATIN 20 MG TAB PO SCH (08:31)
[2022-06-25] MEDS: FINASTERIDE 5 MG TAB PO SCH (08:31)
[2022-06-25] MEDS: EZETIMIBE 10 MG TABLET PO SCH (08:31)
[2022-06-25] MEDS: VALSARTAN/SACUBITRIL 26/24MG TAB PO SCH ×2 (08:31→20:24)
[2022-06-25] MEDS: AMIODARONE 200 MG TAB PO SCH (08:31)
[2022-06-25] MEDS: ASPIRIN 81 MG ECTAB PO SCH (08:32)
[2022-06-25] MEDS: METOPROLOL SUCC 50MG EXT REL TAB PO SCH (08:32)
[2022-06-25] MEDS: UMECLIDINIUM BROMIDE 62.5MCG/BLISTER 7 PUFFS/INHALER INH SCH (08:32)
[2022-06-25] MEDS: FLUTICASONE/VILANTEROL 200/25MCG 14 PUFFS/INHALER INH SCH (08:32)
[2022-06-25] MEDS: ERYTHROMYCIN OP OINT 1 GM PKT OP SCH ×4 (08:32→20:23)
[2022-06-25] MEDS: FUROSEMIDE 40 MG/4 ML VIAL IV SCH (08:34)
[2022-06-25] MEDS: POLYETHYLENE (MIRALAX) 17 GM PACK PO SCH (12:00)
--- NOTE | 2022-06-25 13:03 | Cardiology Progress Note ---
Date of Service June 25, 2022 Assessment & Plan (1) Acute on chronic respiratory failure: Plan: -etiology multifactorial related to his end-stage COPD and chronic systolic CHF. -agree with intravenous furosemide. (2) Elevated troponin: Plan: -likely a supply demand mismatch. -do not suspect an acute coronary syndrome. (3) Coronary artery stenosis: Plan: -history of an acute anterior wall MS with LAD stent, 2000 -continue medical management. (4) Ischemic cardiomyopathy: Plan: -LVEF 30-35% on echocardiogram last month. -this represents an improvement as LVEF was 20-25% in June 2021. -continue Entresto and metoprolol succinate. (5) Paroxysmal atrial flutter: Plan: -remains in sinus rhythm on amiodarone. -TSH and liver transaminases are normal. -patient discontinued long-term anticoagulation due to bleeding hemorrhoids. Admission and Anticipated Discharge Date Admission Date: June 23, 2022 Subjective The patient is resting comfortably in bed without complaints of chest disco mfort. Is currently on 10 L per minute supplemental oxygen. Physical Exam Physical Exam: In general this is a well-developed well-nourished white male in no acute distress. HEENT exam is negative. Neck reveals normal carotid upstrokes without bruits. No JVD. There is no thyromegaly. Cardiovascular exam reveals a regular rhythm with a normal S1 and S2. No murmurs, S3, or S4 are noted. Lungs are clear without rales, rhonchi, or wheezes. Abdomen is soft without bruits. Extremities reveal intact radial artery and posterior tibial pulses bilaterally. There is no peripheral edema. Results & Data (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 PG Care Time/CCT Total # of Minutes Spent Total Time Spent with Patient: Total time spent is greater than 50% in coordination of care (as documented) at patient's floor/unit and/or counseling patient: Coding Level of Care Code 30928 Subseq Hosp Care Lvl 3 Diagnoses Acute on chronic respiratory failure J96.20 Elevated troponin R77.8 Coronary artery stenosis I25.10 Ischemic cardiomyopathy I25.5 Paroxysmal atrial flutter I48.92
--- NOTE | 2022-06-25 15:39 | Hospitalist Progress Note ---
Date of Service June 25, 2022 Assessment & Plan (1) Acute on chronic systolic heart failure: Plan: Rg Trujillo is an 82-year-old male with a past medical history of CAD with history of PCI, systolic heart failure 2/2 ischemic cardiomyopathy, hypertension, emphysema, hypothyroidism, HLD, COPD, BPH with LUTS, a flutter with RVR, and chronic dyspnea who presented to the emergency department via EMS for 2 weeks of worsening shortness of breath. Says he uses about 4 L of oxygen at home Acute on chronic CHF - Hx PCI in 2000 w/ one stent. On aspirin 81mg. - CXR shows Interval progression of the asymmetric pulmonary edema and small bilateral pleural effusions. Healing displaced left midshaft humeral fracture again noted. - Hgb 11, MCV 78.1. Iron studies pending. - HS trop 101, repeat at 2hr pending, q6h x3 f/u trended - BNP 198 (prior 384) - PCT wnl - EKG: similar IV conduction block compared to 06/20/21 EKG segment changes appreciated. QTc prolonged 500ms. Goal Mg 2.0, K 4.0 - ECHO 06/11/22: LVEF 30-35%, LV SF moderate to severely reduced, large area of akinesis of the anterior wall/apex. Compared to 08/21/2018 LV systolic function slightly worse. Currently on IV Lasix 40mg daily, will continue Monitor I/O, daily weight Cardiology consulted for progression of ischemic cardiomyopathy with worsened ECHO, acute on chronic heart failure History of atrial flutter with RVR Continue metoprolol 50 mg every morning Adequately controlled Continue amiodarone 200 mg every morning Anticoagulation previously discontinued and permanently deferred due to recurrent severe bleeding, discussed with pt on admit R Eye discharge - Thick, yellow. Persistent x1 yr, daily discharge which has to be wiped from eye - some improvement - Surface culture taken - Trial erythromycin ointment HLD Continue Zetia Continue simvastatin COPD - Suspect current sx 2/2 AoC CHF rather than COPD exacerbation Continue budesonideformoterol, umeclidinium Spiriva Nebs as needed SPO2 as needed maintain goal SPO2 88-90% -At baseline, uses 4L of oxygen, currently on10L through oxymask -Wean as tolerated Hypertension Metoprolol, Entresto as above - Lisinopril discontinued at prior outpatient visit. Pts daughter has outdated medlist on phone, did confirm with pt that he is taking entresto bu tnot lisinopril with it at this time Hypothyroidism Last TSH elevated with normal free T4 Repeat pending BPH with LUTS Continue finasteride/tamsulosin DVT PPx: lovenox Diet: HH, low salt CODE STATUS: DNR/DNI, no intubation for worsening respiratory failure per pt & daughter at bedside Dispo: PCU for AoC CHF requiring PPV (2) HTN (hypertension): (3) Vitamin D deficiency: (4) Hypothyroidism: (5) Hypercholesterolemia: (6) Coronary artery stenosis: (7) Chronic obstructive pulmonary disease: (8) Acute on chronic respiratory failure with hypoxia and hypercapnia: (9) Atrial flutter with rapid ventricular response: (10) Chronic hypoxemic respiratory failure: Plan patient will benefit from SNF, when more clinically stable Admission and Anticipated Discharge Date Admission Date: June 23, 2022 Subjective patient seen and examined, sob is a little better Review of Systems Review of Systems: All systems reviewed are negative, apart from the ones contained in the history. Physical Exam Physical Exam: The patient is awake, alert and oriented 3, well developed and well nourished, normocephalic and atraumatic, lying in bed and in no acute distress. HEENT--PERRL, EOMI, mucous membranes and oropharynx mildly dry Neck--supple. No JVD. No bruits. Thyroid normal, trachea midline, no adenopathy. Heart--normal S1 and S2. No murmurs, rubs or gallops. Lungs--Reduced air entry, crackles Abdomen--normal bowel sounds and soft. Mild epigastric and left sided abdominal pain Extremities--no cyanosis or clubbing. No edema. Dermatologic--normal skin turgor, normal color, no abnormal lymph nodes, no rash. Neurologic--cranial nerves II through XII grossly intact. Rheumatologic--normal range of motion. Psychiatric--normal affect. Results & Data Results & Data ([facility]) Vital Signs (Past 12 Hours) Vital Signs Temp Pulse Pulse Resp BP Pulse Ox Pulse Ox 06/25/22 15:21 70 06/25/22 14:00 92 06/25/22 12:13 97.9 F 80 20 100/63 91 06/25/22 10:17 06/25/22 07:56 97.9 F 82 18 110/65 97 06/25/22 07:06 73 O2 Del Method O2 Del Method O2 Flow Rate O2 Flow Rate 06/25/22 15:21 06/25/22 14:00 High Flow Nasal Cannula 10 06/25/22 12:13 Oxymask 10 06/25/22 10:17 Oxymask 10 06/25/22 07:56 Oxymask 10 06/25/22 07:06 PG Care Time/CCT Total # of Minutes Spent Total Time Spent with Patient: Total time spent is greater than 50% in coordination of care (as documented) at patient's floor/unit and/or counseling patient: Coding Level of Care Code 75317 Subseq Hosp Care Lvl 2 Diagnoses Acute on chronic systolic heart failure I50.23 HTN (hypertension) I10 Vitamin D deficiency E55.9 Hypothyroidism E03.9 Hypercholesterolemia E78.00 Coronary artery stenosis I25.10 Chronic obstructive pulmonary disease J44.9 Acute on chronic respiratory failure with hypoxia and hypercapnia J96.21; J96.22 Atrial flutter with rapid ventricular response I48.92 Chronic hypoxemic respiratory failure J96.11 Time Spent (min) 35
[2022-06-25] MEDS: ENOXAPARIN INJ 40 MG/0.4 ML SYR SQ SCH (15:55)
[2022-06-25] MEDS: TAMSULOSIN HCL 0.4 MG CAP PO SCH (20:25)
[2022-06-26] MEDS: LEVOTHYROXINE SODIUM 150 MCG TABLET PO SCH (05:39)
[2022-06-26 07:33] LABS: Hematocrit (blood only) 37.3 % (40.1-51.0); Hemoglobin 11.2 g/dl (14.0-18.0); Mean Corpuscular Hemoglobin 24.1 pg (25.0-34.0); Mean Corpuscular Volume 80.2 fL (80.0-100.0); Mean Platelet Volume 9.9 fL (9.4-12.4); Platelet Count 246 K/uL (130-400); RDW Coefficient of Variation 15.8 % (11.5-14.5); RDW Standard Deviation 45.3 fL (36.4-46.3); Red Blood Count 4.65 M/uL (4.63-6.08); White Blood Count 8.14 K/ul (4.8-10.8)
[2022-06-26 08:04] LABS: Calcium 7.5 mg/dl (8.5-10.1); Creatinine Clr Calc Pharmacy 42.2 ml/min; Est GFR (African American) 60.3 ml/min; Potassium 3.5 mmol/L (3.5-5.1)
[2022-06-26] MEDS: METOPROLOL SUCC 50MG EXT REL TAB PO SCH (08:36)
[2022-06-26] MEDS: AMIODARONE 200 MG TAB PO SCH (08:38)
[2022-06-26] MEDS: ASPIRIN 81 MG ECTAB PO SCH (08:38)
[2022-06-26] MEDS: EZETIMIBE 10 MG TABLET PO SCH (08:38)
[2022-06-26] MEDS: FINASTERIDE 5 MG TAB PO SCH (08:38)
[2022-06-26] MEDS: ERYTHROMYCIN OP OINT 1 GM PKT OP SCH ×4 (08:39→19:39)
[2022-06-26] MEDS: VALSARTAN/SACUBITRIL 26/24MG TAB PO SCH ×2 (08:39→19:38)
[2022-06-26] MEDS: SIMVASTATIN 20 MG TAB PO SCH (08:39)
[2022-06-26] MEDS: POLYETHYLENE (MIRALAX) 17 GM PACK PO SCH (08:39)
[2022-06-26] MEDS: UMECLIDINIUM BROMIDE 62.5MCG/BLISTER 7 PUFFS/INHALER INH SCH (08:40)
[2022-06-26] MEDS: FLUTICASONE/VILANTEROL 200/25MCG 14 PUFFS/INHALER INH SCH (08:40)
[2022-06-26] MEDS: FUROSEMIDE 40 MG/4 ML VIAL IV SCH (08:42)
[2022-06-26] MEDS ORDERED: STAT IV STA (14:54)
--- NOTE | 2022-06-26 14:57 | Hospitalist Progress Note ---
Date of Service June 26, 2022 Assessment & Plan (1) Acute on chronic systolic heart failure: Plan: Rg Trujillo is an 82-year-old male with a past medical history of CAD with history of PCI, systolic heart failure 2/2 ischemic cardiomyopathy, hypertension, emphysema, hypothyroidism, HLD, COPD, BPH with LUTS, a flutter with RVR, and chronic dyspnea who presented to the emergency department via EMS for 2 weeks of worsening shortness of breath. Says he uses about 4 L of oxygen at home Acute on chronic CHF - Hx PCI in 2000 w/ one stent. On aspirin 81mg. - CXR shows Interval progression of the asymmetric pulmonary edema and small bilateral pleural effusions. Healing displaced left midshaft humeral fracture again noted. - BNP 198 (prior 384) - PCT wnl - EKG: similar IV conduction block compared to 06/20/21 EKG segment changes appreciated. QTc prolonged 500ms. Goal Mg 2.0, K 4.0 - ECHO 06/11/22: LVEF 30-35%, LV SF moderate to severely reduced, large area of akinesis of the anterior wall/apex. Compared to 08/21/2018 LV systolic function slightly worse. Currently on IV Lasix 40mg daily, will continue Monitor I/O, daily weight Cardiology consulted for progression of ischemic cardiomyopathy with worsened ECHO, acute on chronic heart failure History of atrial flutter with RVR Continue metoprolol 50 mg every morning Adequately controlled Continue amiodarone 200 mg every morning Anticoagulation previously discontinued and permanently deferred due to recurrent severe bleeding, discussed with pt on admit R Eye discharge - Thick, yellow. Persistent x1 yr, daily discharge which has to be wiped from eye - some improvement - Surface culture taken - Trial erythromycin ointment HLD Continue Zetia Continue simvastatin COPD - Suspect current sx 2/2 AoC CHF rather than COPD exacerbation Continue budesonideformoterol, umeclidinium Spiriva Nebs as needed SPO2 as needed maintain goal SPO2 88-90% -At baseline, uses 4L of oxygen, currently on10L through oxymask -Wean as tolerated Hypertension Metoprolol, Entresto as above - Lisinopril discontinued at prior outpatient visit. Hypothyroidism Last TSH elevated with normal free T4 Repeat pending BPH with LUTS Continue finasteride/tamsulosin Hypocalcemia: Replete DVT PPx: lovenox Diet: HH, low salt CODE STATUS: DNR/DNI, no intubation for worsening respiratory failure per pt & daughter Dispo: PCU for AoC CHF requiring PPV (2) HTN (hypertension): (3) Vitamin D deficiency: (4) Hypothyroidism: (5) Hypercholesterolemia: (6) Coronary artery stenosis: (7) Chronic obstructive pulmonary disease: (8) Acute on chronic respiratory failure with hypoxia and hypercapnia: (9) Atrial flutter with rapid ventricular response: (10) Chronic hypoxemic respiratory failure: Plan patient will benefit from SNF, when more clinically stable Admission and Anticipated Discharge Date Admission Date: June 23, 2022 Subjective patient seen and examined, sob is the same, not better, not worse Review of Systems Review of Systems: All systems reviewed are negative, apart from the ones contained in the history. Physical Exam Physical Exam: The patient is awake, alert and oriented 3, well developed and well nourished, normocephalic and atraumatic, lying in bed and in no acute distress. HEENT--PERRL, EOMI, mucous membranes and oropharynx mildly dry Neck--supple. No JVD. No bruits. Thyroid normal, trachea midline, no adenopathy. Heart--normal S1 and S2. No murmurs, rubs or gallops. Lungs--Reduced air entry, crackles Abdomen--normal bowel sounds and soft. Mild epigastric and left sided abdominal pain Extremities--no cyanosis or clubbing. No edema. Dermatologic--normal skin turgor, normal color, no abnormal lymph nodes, no rash. Neurologic--cranial nerves II through XII grossly intact. Rheumatologic--normal range of motion. Psychiatric--normal affect. Results & Data Results & Data ([facility]) Vital Signs (Past 12 Hours) Vital Signs Temp Pulse Pulse Resp BP Pulse Ox O2 Del Method 06/26/22 11:00 98.2 F 87 18 90/56 L 97 06/26/22 09:27 High Flow Nasal Cannula 06/26/22 08:09 98.1 F 71 19 96/59 L 91 High Flow Nasal Cannula 06/26/22 07:22 70 06/26/22 05:39 103/54 L 06/26/22 04:06 97.7 F 70 20 90/51 L 92 High Flow Nasal Cannula O2 Flow Rate 06/26/22 11:00 06/26/22 09:27 10 06/26/22 08:09 10 06/26/22 07:22 06/26/22 05:39 06/26/22 04:06 12 PG Care Time/CCT Total # of Minutes Spent Total Time Spent with Patient: Total time spent is greater than 50% in coordination of care (as documented) at patient's floor/unit and/or counseling patient: Coding Level of Care Code 00645 Subseq Hosp Care Lvl 2 Diagnoses Acute on chronic systolic heart failure I50.23 HTN (hypertension) I10 Vitamin D deficiency E55.9 Hypothyroidism E03.9 Hypercholesterolemia E78.00 Coronary artery stenosis I25.10 Chronic obstructive pulmonary disease J44.9 Acute on chronic respiratory failure with hypoxia and hypercapnia J96.21; J96.22 Atrial flutter with rapid ventricular response I48.92 Chronic hypoxemic respiratory failure J96.11 Time Spent (min) 35
[2022-06-26] MEDS ORDERED: CALCIUM GLUCONATE 10% 1,000 MG in DEXTROSE 5% 50 ML IV ONE (15:15)
[2022-06-26] MEDS: ENOXAPARIN INJ 40 MG/0.4 ML SYR SQ SCH (15:50)
[2022-06-26] MEDS: TAMSULOSIN HCL 0.4 MG CAP PO SCH (19:37)
[2022-06-27] MEDS: LEVOTHYROXINE SODIUM 150 MCG TABLET PO SCH (06:01)
[2022-06-27] MEDS: AMIODARONE 200 MG TAB PO SCH (07:54)
[2022-06-27] MEDS: VALSARTAN/SACUBITRIL 26/24MG TAB PO SCH ×2 (07:54→19:20)
[2022-06-27] MEDS: ERYTHROMYCIN OP OINT 1 GM PKT OP SCH ×4 (07:54→19:20)
[2022-06-27] MEDS: FINASTERIDE 5 MG TAB PO SCH (07:55)
[2022-06-27] MEDS: METOPROLOL SUCC 50MG EXT REL TAB PO SCH (07:55)
[2022-06-27] MEDS: EZETIMIBE 10 MG TABLET PO SCH (07:55)
[2022-06-27] MEDS: FLUTICASONE/VILANTEROL 200/25MCG 14 PUFFS/INHALER INH SCH (07:56)
[2022-06-27] MEDS: SIMVASTATIN 20 MG TAB PO SCH (07:56)
[2022-06-27] MEDS: UMECLIDINIUM BROMIDE 62.5MCG/BLISTER 7 PUFFS/INHALER INH SCH (07:56)
[2022-06-27] MEDS: ASPIRIN 81 MG ECTAB PO SCH (07:56)
[2022-06-27] MEDS: POLYETHYLENE (MIRALAX) 17 GM PACK PO SCH (07:57)
[2022-06-27 08:09] LABS: BUN Creatinine Ratio 27.3 (10-20); Calcium 7.7 mg/dl (8.5-10.1); Est GFR (African American) 63.3 ml/min; Est GFR (Non-African American) 54.6 ml/min; Potassium 3.5 mmol/L (3.5-5.1)
[2022-06-27] MEDS: FUROSEMIDE 40 MG/4 ML VIAL IV SCH (08:34)
[2022-06-27] MEDS ORDERED: STAT IV STA (08:40)
[2022-06-27] MEDS ORDERED: CALCIUM GLUCONATE 10% 1,000 MG in DEXTROSE 5% 50 ML IV ONE (08:45)
--- NOTE | 2022-06-27 15:25 | Hospitalist Progress Note ---
Date of Service June 27, 2022 Assessment & Plan (1) Acute on chronic systolic heart failure: Plan: Rg Trujillo is an 82-year-old male with a past medical history of CAD with history of PCI, systolic heart failure 2/2 ischemic cardiomyopathy, hypertension, emphysema, hypothyroidism, HLD, COPD, BPH with LUTS, a flutter with RVR, and chronic dyspnea who presented to the emergency department via EMS for 2 weeks of worsening shortness of breath. Says he uses about 4 L of oxygen at home Acute on chronic CHF - Hx PCI in 2000 w/ one stent. On aspirin 81mg. - CXR shows Interval progression of the asymmetric pulmonary edema and small bilateral pleural effusions. Healing displaced left midshaft humeral fracture again noted. - BNP 198 (prior 384) - PCT wnl - EKG: similar IV conduction block compared to 06/20/21 EKG segment changes appreciated. QTc prolonged 500ms. Goal Mg 2.0, K 4.0 - ECHO 06/11/22: LVEF 30-35%, LV SF moderate to severely reduced, large area of akinesis of the anterior wall/apex. Compared to 08/21/2018 LV systolic function slightly worse. Currently on IV Lasix 40mg daily, will continue Monitor I/O, daily weight Cardiology consulted for progression of ischemic cardiomyopathy with worsened ECHO, acute on chronic heart failure History of atrial flutter with RVR Continue metoprolol 50 mg every morning Adequately controlled Continue amiodarone 200 mg every morning Anticoagulation previously discontinued and permanently deferred due to recurrent severe bleeding, discussed with pt on admit R Eye discharge - Thick, yellow. Persistent x1 yr, daily discharge which has to be wiped from eye - some improvement - Surface culture taken - Trial erythromycin ointment HLD Continue Zetia Continue simvastatin COPD - Suspect current sx 2/2 AoC CHF rather than COPD exacerbation Continue budesonideformoterol, umeclidinium Spiriva Nebs as needed SPO2 as needed maintain goal SPO2 88-90% -At baseline, uses 4L of oxygen, currently on10L through oxymask -Wean as tolerated Hypertension Metoprolol, Entresto as above - Lisinopril discontinued at prior outpatient visit. Hypothyroidism Last TSH elevated with normal free T4 Repeat pending BPH with LUTS Continue finasteride/tamsulosin Hypocalcemia: Replete DVT PPx: lovenox Diet: HH, low salt CODE STATUS: DNR/DNI, no intubation for worsening respiratory failure per pt & daughter Dispo: PCU for AoC CHF requiring PPV (2) HTN (hypertension): (3) Vitamin D deficiency: (4) Hypothyroidism: (5) Hypercholesterolemia: (6) Coronary artery stenosis: (7) Chronic obstructive pulmonary disease: (8) Acute on chronic respiratory failure with hypoxia and hypercapnia: (9) Atrial flutter with rapid ventricular response: (10) Chronic hypoxemic respiratory failure: Plan patient will benefit from SNF, when more clinically stable. will need a facility [facility] can handle 10L of oxygen Admission and Anticipated Discharge Date Admission Date: June 23, 2022 Subjective patient seen and examined, sob is the same, not better, not worse Review of Systems Review of Systems: All systems reviewed are negative, apart from the ones contained in the history. Physical Exam Physical Exam: The patient is awake, alert and oriented 3, well developed and well nourished, normocephalic and atraumatic, lying in bed and in no acute distress. HEENT--PERRL, EOMI, mucous membranes and oropharynx mildly dry Neck--supple. No JVD. No bruits. Thyroid normal, trachea midline, no adenopathy. Heart--normal S1 and S2. No murmurs, rubs or gallops. Lungs--Reduced air entry, crackles Abdomen--normal bowel sounds and soft. Mild epigastric and left sided abdominal pain Extremities--no cyanosis or clubbing. No edema. Dermatologic--normal skin turgor, normal color, no abnormal lymph nodes, no rash. Neurologic--cranial nerves II through XII grossly intact. Rheumatologic--normal range of motion. Psychiatric--normal affect. Results & Data Results & Data ([facility]) Vital Signs (Past 12 Hours) Vital Signs Temp Pulse Pulse Resp BP Pulse Ox Pulse Ox 06/27/22 14:43 68 06/27/22 13:11 85 L 06/27/22 11:00 98.1 F 72 16 118/63 97 06/27/22 10:23 06/27/22 09:52 91 06/27/22 07:42 82 06/27/22 07:25 97.7 F 71 18 101/61 97 06/27/22 03:29 98.1 F 80 20 97/60 L 92 O2 Del Method O2 Flow Rate O2 Flow Rate 06/27/22 14:43 06/27/22 13:11 10 06/27/22 11:00 06/27/22 10:23 High Flow Nasal Cannula 10 06/27/22 09:52 06/27/22 07:42 06/27/22 07:25 06/27/22 03:29 Nasal Cannula, High Flow Nasal Cannula 10 PG Care Time/CCT Total # of Minutes Spent Total Time Spent with Patient: Total time spent is greater than 50% in coordination of care (as documented) at patient's floor/unit and/or counseling patient: Coding Level of Care Code 35696 Subseq Hosp Care Lvl 2 Diagnoses Acute on chronic systolic heart failure I50.23 HTN (hypertension) I10 Vitamin D deficiency E55.9 Hypothyroidism E03.9 Hypercholesterolemia E78.00 Coronary artery stenosis I25.10 Chronic obstructive pulmonary disease J44.9 Acute on chronic respiratory failure with hypoxia and hypercapnia J96.21; J96.22 Atrial flutter with rapid ventricular response I48.92 Chronic hypoxemic respiratory failure J96.11 Time Spent (min) 35
[2022-06-27] MEDS: ENOXAPARIN INJ 40 MG/0.4 ML SYR SQ SCH (15:34)
[2022-06-27] MEDS: TAMSULOSIN HCL 0.4 MG CAP PO SCH (19:20)
[2022-06-27] MEDS ORDERED: ALBUMIN 25% 100 mL 25 GM/100 ML VIAL IV ONE (23:06)
[2022-06-28] MEDS ORDERED: ALBUMIN 25% 100 mL 25 GM/100 ML VIAL IV ONE (01:15)
[2022-06-28] MEDS: LEVOTHYROXINE SODIUM 150 MCG TABLET PO SCH (06:01)
[2022-06-28 07:01] LABS: BUN Creatinine Ratio 31.7 (10-20); Calcium 8.1 mg/dl (8.5-10.1); Creatinine Clr Calc Pharmacy 43.3 ml/min; Est GFR (African American) 62.1 ml/min; Est GFR (Non-African American) 53.6 ml/min; Potassium 3.6 mmol/L (3.5-5.1)
[2022-06-28] MEDS: AMIODARONE 200 MG TAB PO SCH (07:42)
[2022-06-28] MEDS: FINASTERIDE 5 MG TAB PO SCH (07:42)
[2022-06-28] MEDS: ERYTHROMYCIN OP OINT 1 GM PKT OP SCH ×4 (07:42→20:44)
[2022-06-28] MEDS: FLUTICASONE/VILANTEROL 200/25MCG 14 PUFFS/INHALER INH SCH (07:42)
[2022-06-28] MEDS: SIMVASTATIN 20 MG TAB PO SCH (07:42)
[2022-06-28] MEDS: METOPROLOL SUCC 50MG EXT REL TAB PO SCH ×2 (07:42→07:45)
[2022-06-28] MEDS: EZETIMIBE 10 MG TABLET PO SCH (07:42)
[2022-06-28] MEDS: VALSARTAN/SACUBITRIL 26/24MG TAB PO SCH ×2 (07:42→20:44)
[2022-06-28] MEDS: ASPIRIN 81 MG ECTAB PO SCH (07:42)
[2022-06-28] MEDS: UMECLIDINIUM BROMIDE 62.5MCG/BLISTER 7 PUFFS/INHALER INH SCH (07:43)
[2022-06-28] MEDS: POLYETHYLENE (MIRALAX) 17 GM PACK PO SCH (07:43)
[2022-06-28] MEDS: FUROSEMIDE 40 MG/4 ML VIAL IV SCH (08:02)
--- NOTE | 2022-06-28 09:39 | Cardiology Progress Note ---
Date of Service June 28, 2022 Assessment & Plan (1) Acute on chronic respiratory failure: Plan: -multifactorial related to his end-stage COPD and chronic systolic CHF. -agree with intravenous furosemide. (2) Elevated troponin: Plan: -likely a supply demand mismatch. -do not suspect an acute coronary syndrome. (3) Coronary artery stenosis: Plan: -acute anterior wall AK with LAD stent, 2000 -continue medical management. (4) Ischemic cardiomyopathy: Plan: -LVEF 30-35% on echocardiogram last month. -this represents an improvement as LVEF was 20-25% in June 2021. -continue Entresto and metoprolol succinate. (5) Paroxysmal atrial flutter: Plan: -remains in sinus rhythm on amiodarone. -TSH and liver transaminases are normal. -patient discontinued long-term anticoagulation due to bleeding hemorrhoids. Admission and Anticipated Discharge Date Admission Date: June 23, 2022 Subjective Sting comfortably in bed without complaints of chest discomfort. Does note dyspnea with any physical activity. He is currently on high-flow oxygen. Physical Exam Physical Exam: In general this is a well-developed well-nourished white male in no acute distress. HEENT exam is negative. Neck reveals normal carotid upstrokes without bruits. No JVD. There is no thyromegaly. Cardiovascular exam reveals a regular rhythm with a normal S1 and S2. No murmurs, S3, or S4 are noted. Lungs note distant breath sounds. Abdomen is soft without bruits. Extremities reveal intact radial artery and posterior tibial pulses bilaterally. There is no peripheral edema. Results & Data ([facility]) Vital Signs (Past 12 Hours) Vital Signs Temp Pulse Pulse Resp BP Pulse Ox O2 Del Method 06/28/22 08:02 BiPAP 06/28/22 07:15 36.5 C 71 19 100/54 L 98 BiPAP 06/28/22 05:24 68 22 98/58 L 98 BiPAP 06/28/22 04:02 70 18 97 06/28/22 03:14 36.6 C 66 20 91/50 L 96 BiPAP 06/28/22 01:44 67 20 101/61 96 BiPAP 06/28/22 01:12 71 20 82/52 L 91 BiPAP 06/28/22 00:08 71 20 93/57 L 94 BiPAP 06/27/22 23:00 36.6 C 53 L 18 78/40 L 96 BiPAP 06/27/22 23:36 64 20 88/50 L 95 BiPAP 06/27/22 22:11 74 19 95 FiO2 06/28/22 08:02 60 06/28/22 07:15 60 06/28/22 05:24 60 06/28/22 04:02 60 06/28/22 03:14 40 06/28/22 01:44 60 06/28/22 01:12 60 06/28/22 00:08 60 06/27/22 23:00 06/27/22 23:36 60 06/27/22 22:11 40 Diagnostic Findings water softener servicer is benign. PG Care Time/CCT Total # of Minutes Spent Total Time Spent with Patient: Total time spent is greater than 50% in coordination of care (as documented) at patient's floor/unit and/or counseling patient: Coding Level of Care Code 45504 Subseq Hosp Care Lvl 3 Diagnoses Acute on chronic respiratory failure J96.20 Elevated troponin R77.8 Coronary artery stenosis I25.10 Ischemic cardiomyopathy I25.5 Paroxysmal atrial flutter I48.92
--- NOTE | 2022-06-28 14:59 | Hospitalist Progress Note ---
Date of Service June 28, 2022 Assessment & Plan (1) Acute on chronic systolic heart failure: Plan: Rg Trujillo is an 82-year-old male with a past medical history of CAD with history of PCI, systolic heart failure 2/2 ischemic cardiomyopathy, hypertension, emphysema, hypothyroidism, HLD, COPD, BPH with LUTS, a flutter with RVR, and chronic dyspnea who presented to the emergency department via EMS for 2 weeks of worsening shortness of breath. Says he uses about 4 L of oxygen at home Acute on chronic CHF - Hx PCI in 2000 w/ one stent. On aspirin 81mg. - CXR shows Interval progression of the asymmetric pulmonary edema and small bilateral pleural effusions. Healing displaced left midshaft humeral fracture again noted. - BNP 198 (prior 384) - PCT wnl - EKG: similar IV conduction block compared to 06/20/21 EKG segment changes appreciated. QTc prolonged 500ms. Goal Mg 2.0, K 4.0 - ECHO 06/11/22: LVEF 30-35%, LV SF moderate to severely reduced, large area of akinesis of the anterior wall/apex. Compared to 08/21/2018 LV systolic function slightly worse. Currently on IV Lasix 40mg daily, will continue Monitor I/O, daily weight Cardiology consulted for progression of ischemic cardiomyopathy with worsened ECHO, acute on chronic heart failure History of atrial flutter with RVR Continue metoprolol 50 mg every morning Adequately controlled Continue amiodarone 200 mg every morning Anticoagulation previously discontinued and permanently deferred due to recurrent severe bleeding, discussed with pt on admit R Eye discharge - Thick, yellow. Persistent x1 yr, daily discharge which has to be wiped from eye - some improvement - Surface culture taken - Trial erythromycin ointment HLD Continue Zetia Continue simvastatin COPD - Suspect current sx 2/2 AoC CHF rather than COPD exacerbation Continue budesonideformoterol, umeclidinium Spiriva Nebs as needed SPO2 as needed maintain goal SPO2 88-90% -At baseline, uses 4L of oxygen, currently on 15L through oxymask -Wean as tolerated Hypertension Metoprolol, Entresto as above - Lisinopril discontinued at prior outpatient visit. Hypothyroidism Last TSH elevated with normal free T4 Repeat pending BPH with LUTS Continue finasteride/tamsulosin Hypocalcemia: Replete DVT PPx: lovenox Diet: HH, low salt CODE STATUS: DNR/DNI, no intubation for worsening respiratory failure per pt & daughter Dispo: PCU for AoC CHF requiring PPV (2) HTN (hypertension): (3) Vitamin D deficiency: (4) Hypothyroidism: (5) Hypercholesterolemia: (6) Coronary artery stenosis: (7) Chronic obstructive pulmonary disease: (8) Acute on chronic respiratory failure with hypoxia and hypercapnia: (9) Atrial flutter with rapid ventricular response: (10) Chronic hypoxemic respiratory failure: Plan patient will benefit from SNF, when more clinically stable. will need a facility that can handle 15L of oxygen Admission and Anticipated Discharge Date Admission Date: June 23, 2022 Subjective patient seen and examined, now on 15L oxygen Review of Systems Review of Systems: All systems reviewed are negative, apart from the ones contained in the history. Physical Exam Physical Exam: The patient is awake, alert and oriented 3, well developed and well nourished, normocephalic and atraumatic, lying in bed and in no acute distress. HEENT--PERRL, EOMI, mucous membranes and oropharynx mildly dry Neck--supple. No JVD. No bruits. Thyroid normal, trachea midline, no adenopathy. Heart--normal S1 and S2. No murmurs, rubs or gallops. Lungs--Reduced air entry, crackles Abdomen--normal bowel sounds and soft. Mild epigastric and left sided abdominal pain Extremities--no cyanosis or clubbing. No edema. Dermatologic--normal skin turgor, normal color, no abnormal lymph nodes, no rash. Neurologic--cranial nerves II through XII grossly intact. Rheumatologic--normal range of motion. Psychiatric--normal affect. Results & Data Results & Data ([facility]) Vital Signs (Past 12 Hours) Vital Signs Temp Pulse Pulse Resp BP Pulse Ox O2 Del Method 06/28/22 12:06 97.7 F 71 18 100/55 L 93 Oxymask 06/28/22 08:02 BiPAP 06/28/22 07:15 97.7 F 71 19 100/54 L 98 BiPAP 06/28/22 05:24 68 22 98/58 L 98 BiPAP 06/28/22 04:02 70 18 97 06/28/22 03:14 97.9 F 66 20 91/50 L 96 BiPAP O2 Flow Rate FiO2 06/28/22 12:06 13 06/28/22 08:02 60 06/28/22 07:15 60 06/28/22 05:24 60 06/28/22 04:02 60 06/28/22 03:14 40 PG Care Time/CCT Total # of Minutes Spent Total Time Spent with Patient: Total time spent is greater than 50% in coordination of care (as documented) at patient's floor/unit and/or counseling patient: Coding Level of Care Code 46278 Subseq Hosp Care Lvl 2 Diagnoses Acute on chronic systolic heart failure I50.23 HTN (hypertension) I10 Vitamin D deficiency E55.9 Hypothyroidism E03.9 Hypercholesterolemia E78.00 Coronary artery stenosis I25.10 Chronic obstructive pulmonary disease J44.9 Acute on chronic respiratory failure with hypoxia and hypercapnia J96.21; J96.22 Atrial flutter with rapid ventricular response I48.92 Chronic hypoxemic respiratory failure J96.11 Time Spent (min) 35
[2022-06-28] MEDS: ENOXAPARIN INJ 40 MG/0.4 ML SYR SQ SCH (16:01)
[2022-06-28] MEDS: TAMSULOSIN HCL 0.4 MG CAP PO SCH (20:44)
[2022-06-29] MEDS: LEVOTHYROXINE SODIUM 150 MCG TABLET PO SCH (06:08)
[2022-06-29] MEDS: VALSARTAN/SACUBITRIL 26/24MG TAB PO SCH ×2 (07:53→19:44)
[2022-06-29] MEDS: ASPIRIN 81 MG ECTAB PO SCH (07:54)
[2022-06-29] MEDS: UMECLIDINIUM BROMIDE 62.5MCG/BLISTER 7 PUFFS/INHALER INH SCH (07:54)
[2022-06-29] MEDS: AMIODARONE 200 MG TAB PO SCH (07:54)
[2022-06-29] MEDS: SIMVASTATIN 20 MG TAB PO SCH (07:54)
[2022-06-29] MEDS: ERYTHROMYCIN OP OINT 1 GM PKT OP SCH ×4 (07:54→19:44)
[2022-06-29] MEDS: METOPROLOL SUCC 50MG EXT REL TAB PO SCH (07:54)
[2022-06-29] MEDS: FINASTERIDE 5 MG TAB PO SCH (07:55)
[2022-06-29] MEDS: POLYETHYLENE (MIRALAX) 17 GM PACK PO SCH (07:55)
[2022-06-29] MEDS: EZETIMIBE 10 MG TABLET PO SCH (07:55)
[2022-06-29] MEDS: FLUTICASONE/VILANTEROL 200/25MCG 14 PUFFS/INHALER INH SCH (07:56)
[2022-06-29] MEDS: FUROSEMIDE 40 MG/4 ML VIAL IV SCH (07:59)
[2022-06-29] MEDS: ENOXAPARIN INJ 40 MG/0.4 ML SYR SQ SCH (13:53)
--- NOTE | 2022-06-29 14:34 | Hospitalist Progress Note ---
Date of Service June 29, 2022 Assessment & Plan (1) Acute on chronic systolic heart failure: Plan: Rg Trujillo is an 82-year-old male with a past medical history of CAD with history of PCI, systolic heart failure 2/2 ischemic cardiomyopathy, hypertension, emphysema, hypothyroidism, HLD, COPD, BPH with LUTS, a flutter with RVR, and chronic dyspnea who presented to the emergency department via EMS for 2 weeks of worsening shortness of breath. Says he uses about 4 L of oxygen at home Acute on chronic CHF - Hx PCI in 2000 w/ one stent. On aspirin 81mg. - CXR shows Interval progression of the asymmetric pulmonary edema and small bilateral pleural effusions. Healing displaced left midshaft humeral fracture again noted. - BNP 198 (prior 384) - PCT wnl - EKG: similar IV conduction block compared to 06/20/21 EKG segment changes appreciated. QTc prolonged 500ms. Goal Mg 2.0, K 4.0 - ECHO 06/11/22: LVEF 30-35%, LV SF moderate to severely reduced, large area of akinesis of the anterior wall/apex. Compared to 08/21/2018 LV systolic function slightly worse. Currently on IV Lasix 40mg daily, will continue Monitor I/O, daily weight Cardiology consulted for progression of ischemic cardiomyopathy with worsened ECHO, acute on chronic heart failure History of atrial flutter with RVR Continue metoprolol 50 mg every morning Adequately controlled Continue amiodarone 200 mg every morning Anticoagulation previously discontinued and permanently deferred due to recurrent severe bleeding, discussed with pt on admit R Eye discharge - Resolvedt HLD Continue Zetia Continue simvastatin COPD - Suspect current sx 2/2 AoC CHF rather than COPD exacerbation Continue budesonideformoterol, umeclidinium Spiriva Nebs as needed SPO2 as needed maintain goal SPO2 88-90% -At baseline, uses 4L of oxygen, currently on 15L through oxymask -Wean as tolerated Hypertension Metoprolol, Entresto as above - Lisinopril discontinued at prior outpatient visit. Hypothyroidism Last TSH elevated with normal free T4 Repeat pending BPH with LUTS Continue finasteride/tamsulosin Hypocalcemia: Replete DVT PPx: lovenox Diet: HH, low salt CODE STATUS: DNR/DNI, no intubation for worsening respiratory failure per pt & daughter Dispo: PCU for AoC CHF requiring PPV (2) HTN (hypertension): (3) Vitamin D deficiency: (4) Hypothyroidism: (5) Hypercholesterolemia: (6) Coronary artery stenosis: (7) Chronic obstructive pulmonary disease: (8) Acute on chronic respiratory failure with hypoxia and hypercapnia: (9) Atrial flutter with rapid ventricular response: (10) Chronic hypoxemic respiratory failure: Plan patient will need an LTAC or a SNF able to handle his oxygen requirement of 15L Admission and Anticipated Discharge Date Admission Date: June 23, 2022 Subjective patient seen and examined, now on 15L oxygen Review of Systems Review of Systems: All systems reviewed are negative, apart from the ones contained in the history. Physical Exam Physical Exam: The patient is awake, alert and oriented 3, well developed and well nourished, normocephalic and atraumatic, lying in bed and in no acute distress. HEENT--PERRL, EOMI, mucous membranes and oropharynx mildly dry Neck--supple. No JVD. No bruits. Thyroid normal, trachea midline, no adenopathy. Heart--normal S1 and S2. No murmurs, rubs or gallops. Lungs--Reduced air entry, crackles Abdomen--normal bowel sounds and soft. Mild epigastric and left sided abdominal pain Extremities--no cyanosis or clubbing. No edema. Dermatologic--normal skin turgor, normal color, no abnormal lymph nodes, no rash. Neurologic--cranial nerves II through XII grossly intact. Rheumatologic--normal range of motion. Psychiatric--normal affect. Results & Data Results & Data ([facility]) Vital Signs (Past 12 Hours) Vital Signs Temp Pulse Pulse Resp BP Pulse Ox O2 Del Method 06/29/22 11:36 92 Oxymask 06/29/22 11:03 97.5 F L 66 19 92/55 L 97 Oxymask 06/29/22 07:30 75 06/29/22 07:50 Oxymask 06/29/22 07:33 97.9 F 78 21 111/58 L 98 Oxymask 06/29/22 02:48 97.9 F 77 18 98/55 L 92 Nasal Cannula O2 Flow Rate 06/29/22 11:36 12 06/29/22 11:03 14 06/29/22 07:30 06/29/22 07:50 14 06/29/22 07:33 14 06/29/22 02:48 14 PG Care Time/CCT Total # of Minutes Spent Total Time Spent with Patient: Total time spent is greater than 50% in coordination of care (as documented) at patient's floor/unit and/or counseling patient: Coding Level of Care Code 98409 Subseq Hosp Care Lvl 2 Diagnoses Acute on chronic systolic heart failure I50.23 HTN (hypertension) I10 Vitamin D deficiency E55.9 Hypothyroidism E03.9 Hypercholesterolemia E78.00 Coronary artery stenosis I25.10 Chronic obstructive pulmonary disease J44.9 Acute on chronic respiratory failure with hypoxia and hypercapnia J96.21; J96.22 Atrial flutter with rapid ventricular response I48.92 Chronic hypoxemic respiratory failure J96.11 Time Spent (min) 35
[2022-06-29] MEDS: TAMSULOSIN HCL 0.4 MG CAP PO SCH (19:44)
[2022-06-30] MEDS ORDERED: COUGH DROP (SUGAR FREE) LOZ 24 LOZ/1 BOX BUCCAL ONE (00:28)
[2022-06-30] MEDS: LEVOTHYROXINE SODIUM 150 MCG TABLET PO SCH (05:51)
[2022-06-30] MEDS: EZETIMIBE 10 MG TABLET PO SCH (07:59)
[2022-06-30] MEDS: VALSARTAN/SACUBITRIL 26/24MG TAB PO SCH ×2 (07:59→20:35)
[2022-06-30] MEDS: SIMVASTATIN 20 MG TAB PO SCH (07:59)
[2022-06-30] MEDS: ASPIRIN 81 MG ECTAB PO SCH (07:59)
[2022-06-30] MEDS: POLYETHYLENE (MIRALAX) 17 GM PACK PO SCH (07:59)
[2022-06-30] MEDS: FLUTICASONE/VILANTEROL 200/25MCG 14 PUFFS/INHALER INH SCH (08:00)
[2022-06-30] MEDS: METOPROLOL SUCC 50MG EXT REL TAB PO SCH (08:00)
[2022-06-30] MEDS: AMIODARONE 200 MG TAB PO SCH (08:00)
[2022-06-30] MEDS: FINASTERIDE 5 MG TAB PO SCH (08:00)
[2022-06-30] MEDS: UMECLIDINIUM BROMIDE 62.5MCG/BLISTER 7 PUFFS/INHALER INH SCH (08:01)
[2022-06-30] MEDS: ERYTHROMYCIN OP OINT 5 MG/GM 3.5 GM TUBE OP SCH ×4 (08:01→20:35)
[2022-06-30] MEDS: FUROSEMIDE 40 MG/4 ML VIAL IV SCH (08:02)
[2022-06-30] MEDS: ENOXAPARIN INJ 40 MG/0.4 ML SYR SQ SCH (14:05)
--- NOTE | 2022-06-30 14:39 | Hospitalist Progress Note ---
Date of Service June 30, 2022 Assessment & Plan (1) Acute on chronic systolic heart failure: Plan: Rg Trujillo is an 82-year-old male with a past medical history of CAD with history of PCI, systolic heart failure 2/2 ischemic cardiomyopathy, hypertension, emphysema, hypothyroidism, HLD, COPD, BPH with LUTS, a flutter with RVR, and chronic dyspnea who presented to the emergency department via EMS for 2 weeks of worsening shortness of breath. Says he uses about 4 L of oxygen at home Acute on chronic CHF - Hx PCI in 2000 w/ one stent. On aspirin 81mg. - CXR shows Interval progression of the asymmetric pulmonary edema and small bilateral pleural effusions. Healing displaced left midshaft humeral fracture again noted. - BNP 198 (prior 384) - PCT wnl - EKG: similar IV conduction block compared to 06/20/21 EKG segment changes appreciated. QTc prolonged 500ms. Goal Mg 2.0, K 4.0 - ECHO 06/11/22: LVEF 30-35%, LV SF moderate to severely reduced, large area of akinesis of the anterior wall/apex. Compared to 08/21/2018 LV systolic function slightly worse. Currently on IV Lasix 40mg daily, will continue Monitor I/O, daily weight Cardiology consulted for progression of ischemic cardiomyopathy with worsened ECHO, acute on chronic heart failure History of atrial flutter with RVR Continue metoprolol 50 mg every morning Adequately controlled Continue amiodarone 200 mg every morning Anticoagulation previously discontinued and permanently deferred due to recurrent severe bleeding, discussed with pt on admit R Eye discharge - Resolvedt HLD Continue Zetia Continue simvastatin COPD - End stage COPD Continue budesonideformoterol, umeclidinium Spiriva Nebs as needed SPO2 as needed maintain goal SPO2 88-90% -At baseline, uses 4L of oxygen, currently on 14L through oxymask -Wean as tolerated Hypertension Metoprolol, Entresto as above - Lisinopril discontinued at prior outpatient visit. Hypothyroidism Last TSH elevated with normal free T4 Repeat pending BPH with LUTS Continue finasteride/tamsulosin Hypocalcemia: Replete DVT PPx: lovenox Diet: HH, low salt CODE STATUS: DNR/DNI, no intubation for worsening respiratory failure per pt & daughter Dispo: PCU for AoC CHF requiring PPV (2) HTN (hypertension): (3) Vitamin D deficiency: (4) Hypothyroidism: (5) Hypercholesterolemia: (6) Coronary artery stenosis: (7) Chronic obstructive pulmonary disease: (8) Acute on chronic respiratory failure with hypoxia and hypercapnia: (9) Atrial flutter with rapid ventricular response: (10) Chronic hypoxemic respiratory failure: Plan patient will need an LTAC or a SNF able to handle his oxygen requirement of 15L Admission and Anticipated Discharge Date Admission Date: June 23, 2022 Subjective patient seen and examined, now on 14L oxygen Review of Systems Review of Systems: All systems reviewed are negative, apart from the ones contained in the history. Physical Exam Physical Exam: The patient is awake, alert and oriented 3, well developed and well nourished, normocephalic and atraumatic, lying in bed and in no acute dist ress. HEENT--PERRL, EOMI, mucous membranes and oropharynx mildly dry Neck--supple. No JVD. No bruits. Thyroid normal, trachea midline, no adenopathy. Heart--normal S1 and S2. No murmurs, rubs or gallops. Lungs--Reduced air entry, crackles Abdomen--normal bowel sounds and soft. Mild epigastric and left sided abdominal pain Extremities--no cyanosis or clubbing. No edema. Dermatologic--normal skin turgor, normal color, no abnormal lymph nodes, no rash. Neurologic--cranial nerves II through XII grossly intact. Rheumatologic--normal range of motion. Psychiatric--normal affect. Results & Data Results & Data ([facility]) Vital Signs (Past 12 Hours) Vital Signs Temp Pulse Pulse Resp BP Pulse Ox O2 Del Method 06/30/22 12:33 97.9 F 73 20 97/55 L 93 High Flow Nasal Cannula 06/30/22 08:15 Oxymask 06/30/22 07:44 69 06/30/22 07:34 97.7 F 71 20 94/60 L 95 Oxymask 06/30/22 03:44 97.5 F L 70 20 101/54 L 95 Oxymask O2 Flow Rate 06/30/22 12:33 14 06/30/22 08:15 13 06/30/22 07:44 06/30/22 07:34 13 06/30/22 03:44 13.0 PG Care Time/CCT Total # of Minutes Spent Total Time Spent with Patient: Total time spent is greater than 50% in coordination of care (as documented) at patient's floor/unit and/or counseling patient: Coding Level of Care Code 81909 Subseq Hosp Care Lvl 2 Diagnoses Acute on chronic systolic heart failure I50.23 HTN (hypertension) I10 Vitamin D deficiency E55.9 Hypothyroidism E03.9 Hypercholesterolemia E78.00 Coronary artery stenosis I25.10 Chronic obstructive pulmonary disease J44.9 Acute on chronic respiratory failure with hypoxia and hypercapnia J96.21; J96.22 Atrial flutter with rapid ventricular response I48.92 Chronic hypoxemic respiratory failure J96.11 Time Spent (min) 35
[2022-06-30] MEDS: TAMSULOSIN HCL 0.4 MG CAP PO SCH (20:35)
[2022-07-01] MEDS: LEVOTHYROXINE SODIUM 150 MCG TABLET PO SCH (06:09)
[2022-07-01 06:28] LABS: Hematocrit (blood only) 35.6 % (40.1-51.0); Hemoglobin 10.7 g/dl (14.0-18.0); Mean Corpuscular Hemoglobin 23.4 pg (25.0-34.0); Mean Corpuscular Hgb Conc 30.1 g/dL (32.0-36.0); Mean Corpuscular Volume 77.7 fL (80.0-100.0); Mean Platelet Volume 10.2 fL (9.4-12.4); Platelet Count 211 K/uL (130-400); RDW Coefficient of Variation 15.6 % (11.5-14.5); Red Blood Count 4.58 M/uL (4.63-6.08); White Blood Count 6.89 K/ul (4.8-10.8)
[2022-07-01 07:06] LABS: BUN Creatinine Ratio 29.7 (10-20); Calcium 8.5 mg/dl (8.5-10.1); Creatinine Clr Calc Pharmacy 52.7 ml/min; Est GFR (African American) 78.8 ml/min; Potassium 3.8 mmol/L (3.5-5.1)
[2022-07-01] MEDS: EZETIMIBE 10 MG TABLET PO SCH (09:14)
[2022-07-01] MEDS: SIMVASTATIN 20 MG TAB PO SCH (09:14)
[2022-07-01] MEDS: METOPROLOL SUCC 50MG EXT REL TAB PO SCH (09:15)
[2022-07-01] MEDS: AMIODARONE 200 MG TAB PO SCH (09:15)
[2022-07-01] MEDS: ASPIRIN 81 MG ECTAB PO SCH (09:15)
[2022-07-01] MEDS: FINASTERIDE 5 MG TAB PO SCH (09:16)
[2022-07-01] MEDS: VALSARTAN/SACUBITRIL 26/24MG TAB PO SCH ×2 (09:16→20:06)
[2022-07-01] MEDS: ERYTHROMYCIN OP OINT 5 MG/GM 3.5 GM TUBE OP SCH ×4 (09:17→20:07)
[2022-07-01] MEDS: FLUTICASONE/VILANTEROL 200/25MCG 14 PUFFS/INHALER INH SCH (09:18)
[2022-07-01] MEDS: UMECLIDINIUM BROMIDE 62.5MCG/BLISTER 7 PUFFS/INHALER INH SCH (09:22)
[2022-07-01] MEDS: POLYETHYLENE (MIRALAX) 17 GM PACK PO SCH (09:22)
[2022-07-01] MEDS: FUROSEMIDE 40 MG/4 ML VIAL IV SCH (10:05)
[2022-07-01] MEDS: ENOXAPARIN INJ 40 MG/0.4 ML SYR SQ SCH (15:42)
[2022-07-01] MEDS ORDERED: predniSONE 20 MG TAB PO SCH (19:00)
--- NOTE | 2022-07-01 19:04 | Hospitalist Progress Note ---
Date of Service July 01, 2022 Assessment & Plan (1) Acute on chronic systolic heart failure: Plan: Attending: Dr. Stoner Impression: This is an 82-year-old male with a past medical history of CAD with history of PCI, systolic heart failure 2/2 ischemic cardiomyopathy, hypertension, emphysema, hypothyroidism, HLD, COPD, BPH with LUTS, a flutter with RVR, and chronic dyspnea who presented to the emergency department via EMS for 2 weeks of worsening shortness of breath. Says he uses about 4 L of oxygen at home. He has severe COPD with FEV1 of 32% based on PFT from 2019. He is a Gold class IV/D. Patient also follows with cardiology and most recently was s tarted on Entresto secondary to reduced ejection fraction. Acute on chronic CHF * Echocardiogram performed 06/11/2022 shows LVEF of 30 to 35%. 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 * proBNP elevated at 198 but reduce from 384 prior * Patient is chronically on furosemide * Chest x-ray with asymmetric pulmonary edema with small bilateral pleural effusions which were previously noted * Repeat chest x-ray today as patient has been unable to be weaned below 10 L by Oxymask * Continue diuretics per cardiology * Continue to monitor on telemetry CAD * Patient with history of PCI in 2000 with a drug-eluting stent. Continue baby aspirin 81 mg p.o. daily * Progression of ischemic cardiomyopathy * Cardiology consulted and following. Appreciate their input History of atrial flutter with RVR * Continue amiodarone 200 mg p.o. daily * Continue metoprolol succinate 50 mg every morning * Continue to monitor on telemetry * Anticoagulation previously discontinued and permanently deferred due to recurrent severe bleeding, discussed with pt on admit R Eye discharge * Resolved HLD * Continue Zetia and simvastatin COPD * Gold class IV/D * Follows with Dr. Odonnell in the outpatient clinic. Last seen in April * Spiriva and Incruse Ellipta as an outpatient. While inpatient we will use umeclidinium (AC) and fluticasone/vilanterol (ICS/LABA) * Pulmonary function testing from 2019 revealed FEV1 of 32% * Maintain SaO2 of 88 to 92% Hypoxia * Chronic respiratory failure with hypoxia requiring 4 L/min via nasal cannula * Initial presentation showed pulmonary edema on chest x-ray with small bilatera l pleural effusions * Have been unable to wean supplemental oxygen below 10L/min via oxime mask * Repeat chest x-ray today. If no clear etiology, consider CT chest without contrast * Patient with wheezes today on examination. We will start patient on prednisone 40 mg p.o. daily x5 days and stop * Hypertension * Continue metoprolol, Entresto as above * Lisinopril discontinued at prior outpatient visit. Hypothyroidism * Last TSH elevated with normal free T4 * Repeat pending BPH with LUTS * Continue finasteride/tamsulosin Hypocalcemia: * Resolved DVT PPx: lovenox Diet: HH, low salt CODE STATUS: DNR/DNI, no intubation for worsening respiratory failure per pt & daughter Dispo: PCU for AoC CHF requiring PPV. Patient continues to require telemetry for profound hypoxia and atrial flutter (2) HTN (hypertension): (3) Vitamin D deficiency: (4) Hypothyroidism: (5) Hypercholesterolemia: (6) Coronary artery stenosis: (7) Chronic obstructive pulmonary disease: (8) Acute on chronic respiratory failure with hypoxia and hypercapnia: (9) Atrial flutter with rapid ventricular response: (10) Chronic hypoxemic respiratory failure: Admission and Anticipated Discharge Date Admission Date: June 23, 2022 Subjective Attending: Dr. Stoner This is a an 82-year-old male that was admitted 06/23/2022 for dyspnea with tachypnea. Patient has chronic respiratory failure and requires 4 L/min by nasal cannula at home. Patient started feeling sick approximately 3 weeks ago and has been increasing his home oxygen at the time of admission was on 6 L/min with no effect. Patient was started on doxycycline and Rocephin on admission. proBNP was elevated but down from prior review. At the time of admission, patient stated that they feel her shortness of breath was different than COPD exacerbation that he had in the past. The patient states that he continues to have shortness of breath but it is improved. He does have noticeable wheezes which are confirmed with auscultation. Minimal sputum production that is white in color. No hemoptysis. No chest pain or tightness. No fever. Aside from shortness of breath, no acute complaints at this time. Review of Systems Review of Systems: A total of 10 systems was reviewed and is negative other than as listed in the HPI Physical Exam Physical Exam: GENERAL : No acute distress. Patient is laying in bed and appears to be comfortable. Nasal cannula is in place. EYES: No icterus, gaze conjugate. No evidence of discharge NOSE: No evidence of epistaxis. Nasal cannula is in place MOUTH: No lesions or candidiasis. Mucosa moist NECK: Supple. Transmitted wheezes from anterior upper chest LUNGS: Crackles at the bilateral bases. There are also scattered wheezes on expiration HEART: Regular, rate controlled ABDOMEN: Soft, NT, ND, BS Present EXTREMITIES: No LE edema, pedal pulses intact NEURO: A&OX3 Results & Data Results & Data ([facility]) Vital Signs (Past 12 Hours) Vital Signs Temp Pulse Pulse Resp BP Pulse Ox O2 Del Method 07/01/22 16:36 36.7 C 66 20 121/63 96 07/01/22 12:47 36.7 C 87 18 119/74 97 07/01/22 08:00 76 07/01/22 08:00 Oxymask 07/01/22 07:01 36.6 C 74 18 104/61 94 Oxymask O2 Flow Rate 07/01/22 16:36 07/01/22 12:47 07/01/22 08:00 07/01/22 08:00 10 07/01/22 07:01 10 Critical Care Results & Data Vital Signs (Past 12 Hours) Vital Signs Temp Pulse Pulse Resp BP Pulse Ox O2 Del Method 07/01/22 16:36 36.7 C 66 20 121/63 96 07/01/22 12:47 36.7 C 87 18 119/74 97 07/01/22 08:00 76 07/01/22 08:00 Oxymask 07/01/22 07:01 36.6 C 74 18 104/61 94 Oxymask O2 Flow Rate 07/01/22 16:36 07/01/22 12:47 07/01/22 08:00 07/01/22 08:00 10 07/01/22 07:01 10 Lab & Micro Results (Past 24 Hours) RBC 4.58 M/uL (4.63-6.08) L 07/01/22 WBC 6.89 K/ul (4.8-10.8) 07/01/22 Hgb 10.7 g/dl (14.0-18.0) L 07/01/22 Hct 35.6 % (40.1-51.0) L 07/01/22 MCV 77.7 fL (80.0-100.0) L 07/01/22 MCH 23.4 pg (25.0-34.0) L 07/01/22 MCHC 30.1 g/dL (32.0-36.0) L 07/01/22 RDW Standard Deviation 44.0 fL (36.4-46.3) 07/01/22 RDW Coefficient of Variation 15.6 % (11.5-14.5) H 07/01/22 Plt Count 211 K/uL (130-400) 07/01/22 MPV 10.2 fL (9.4-12.4) 07/01/22 Na 136 mmol/L (136-145) 07/01/22 K 3.8 mmol/L (3.5-5.1) 07/01/22 Cl 97 mmol/L (98-107) L 07/01/22 CO2 39 mmol/L (21-32) H 07/01/22 Anion Gap 0 (3-11) L 07/01/22 BUN 30 mg/dl (6-23) H 07/01/22 Creatinine 1.01 mg/dl (0.6-1.4) 07/01/22 Estimated GFR ( Amer) 78.8 ml/min 07/01/22 Estimated GFR (Non-Af Amer) 68.0 ml/min 07/01/22 BUN/Creatinine Ratio 29.7 (10-20) H 07/01/22 Glu 100 mg/dl (70-99(Fasting)) H 07/01/22 Ca 8.5 mg/dl (8.5-10.1) 07/01/22 Calcium Level 8.5 mg/dl (8.5-10.1) 07/01/22 06:14 I & O Totals 24 Hours 06/30/22 07/01/22 07/02/22 06:59 06:59 06:59 Intake Total 797 / 797 1010 / 1010 450 / 450 Output Total 625 / 625 825 / 825 650 / 650 Balance 172 / 172 185 / 185 -200 / -200 Cumulative 06/23/22 08:40 thru 07/01/22 14:00 Intake Total 4332 Output Total 7525 Balance -603 RT Ventilator Mngmt (Last Documented) Ventilator Ordered Settings Respiratory Rate 20 07/01/22 1 6:36 Fraction of Inspired Oxygen 60 06/28/22 08:02 Ventilator - PT Measurements Respiratory Rate 20 PG Care Time/CCT Total # of Minutes Spent Total Time Spent with Patient: Total time spent is greater than 50% in coordination of care (as documented) at patient's floor/unit and/or counseling patient: Coding Level of Care Code 86162 Subseq Hosp Care Lvl 3 Diagnoses Acute on chronic systolic heart failure I50.23 HTN (hypertension) I10 Vitamin D deficiency E55.9 Hypothyroidism E03.9 Hypercholesterolemia E78.00 Coronary artery stenosis I25.10 Chronic obstructive pulmonary disease J44.9 Acute on chronic respiratory failure with hypoxia and hypercapnia J96.21; J96.22 Atrial flutter with rapid ventricular response I48.92 Chronic hypoxemic respiratory failure J96.11
--- NOTE | 2022-07-01 19:15 | XRay Report ---
XR chest 1V portable CLINICAL HISTORY: Hypoxia with increased oxygen requirements. COMPARISON STUDY: 06/23/2022 TECHNIQUE: 1 view of the chest FINDINGS: Single frontal view of the chest demonstrates the cardiomediastinal silhouette to be within normal li mits. Compared to the previous study, increased patchy alveolar opacities are seen superimposed over diffuse prominence of the interstitial markings. The findings are more concerning for a viral type pn eumonitis rather than vascular congestion. There is again suspicion of a right pleural effusion. Ther e is no evidence for vascular congestion. There is no acute osseous pathology. IMPRESSION: 1. Increased alveolar opacities superimposed over prominence of the interstitial markings. The findin gs are more concerning for a viral type pneumonitis rather than vascular congestion. 2. This also evidence for small right pleural effusion. ACT 112: Negative or not required by law. Electronically signed by: Jude Li M.D. 07/01/2022 7:13 PM
[2022-07-01] MEDS ORDERED: methylPREDNISolone 125 MG in SYRINGE 0 ML IV ONE (19:30)
[2022-07-01] MEDS: TAMSULOSIN HCL 0.4 MG CAP PO SCH (20:06)
[2022-07-02] MEDS: LEVOTHYROXINE SODIUM 150 MCG TABLET PO SCH (05:30)
[2022-07-02] MEDS: ASPIRIN 81 MG ECTAB PO SCH (08:26)
[2022-07-02] MEDS: METOPROLOL SUCC 50MG EXT REL TAB PO SCH (08:26)
[2022-07-02] MEDS: POLYETHYLENE (MIRALAX) 17 GM PACK PO SCH ×2 (08:27→08:34)
[2022-07-02] MEDS: ERYTHROMYCIN OP OINT 5 MG/GM 3.5 GM TUBE OP SCH ×4 (08:28→19:55)
[2022-07-02] MEDS: AMIODARONE 200 MG TAB PO SCH (08:28)
[2022-07-02] MEDS: EZETIMIBE 10 MG TABLET PO SCH (08:28)
[2022-07-02] MEDS: FINASTERIDE 5 MG TAB PO SCH (08:28)
[2022-07-02] MEDS: SIMVASTATIN 20 MG TAB PO SCH (08:29)
[2022-07-02] MEDS: VALSARTAN/SACUBITRIL 26/24MG TAB PO SCH ×2 (08:29→19:56)
[2022-07-02] MEDS: FLUTICASONE/VILANTEROL 200/25MCG 14 PUFFS/INHALER INH SCH (08:29)
[2022-07-02] MEDS: FUROSEMIDE 40 MG/4 ML VIAL IV SCH (08:31)
[2022-07-02] MEDS ORDERED: methylPREDNISolone 40 MG in SYRINGE 0 ML IV SCH (09:00)
[2022-07-02] MEDS: UMECLIDINIUM BROMIDE 62.5MCG/BLISTER 7 PUFFS/INHALER INH SCH (09:14)
[2022-07-02] MEDS: ENOXAPARIN INJ 40 MG/0.4 ML SYR SQ SCH (15:39)
--- NOTE | 2022-07-02 18:51 | Hospitalist Progress Note ---
Date of Service July 02, 2022 Assessment & Plan (1) Acute on chronic systolic heart failure: Plan: Attending: Dr. Stoner Impression: This is an 82-year-old male with a past medical history of CAD with history of PCI, systolic heart failure 2/2 ischemic cardiomyopathy, hypertension, emphysema, hypothyroidism, HLD, COPD, BPH with LUTS, a flutter with RVR, and chronic dyspnea who presented to the emergency department via EMS for 2 weeks of worsening shortness of breath. Says he uses about 4 L of oxygen at home. He has severe COPD with FEV1 of 32% based on PFT from 2019. He is a Gold class IV/D. Patient also follows with cardiology and most recently was s tarted on Entresto secondary to reduced ejection fraction. Acute on chronic CHF * Echocardiogram performed 06/11/2022 shows LVEF of 30 to 35%. 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 * proBNP elevated at 198 but reduce from 384 prior * Patient is chronically on furosemide * Chest x-ray with asymmetric pulmonary edema with small bilateral pleural effusions which were previously noted * Repeat chest x-ray revealed worsening opacities concerning for viral etiology but no specific pulmonary edema * Continue diuretics per cardiology * Continue to monitor on telemetry CAD * Patient with history of PCI in 2000 with a drug-eluting stent. Continue baby aspirin 81 mg p.o. daily * Progression of ischemic cardiomyopathy * Cardiology consulted and following. Appreciate their input History of atrial flutter with RVR * Continue amiodarone 200 mg p.o. daily * Continue metoprolol succinate 50 mg every morning * Continue to monitor on telemetry * Anticoagulation previously discontinued and permanently deferred due to recurrent severe bleeding, discussed with pt on admit R Eye discharge * Resolved * Cultures with MSSA HLD * Continue Zetia and simvastatin COPD * Gold class IV/D * Follows with Dr. Odonnell in the outpatient clinic. Last seen in April * Spiriva and Incruse Ellipta as an outpatient. While inpatient we will use umeclidinium (AC) and fluticasone/vilanterol (ICS/LABA) * Pulmonary function testing from 2019 revealed FEV1 of 32% * Maintain SaO2 of 88 to 92% * Prednisone burst as listed below Hypoxia * Chronic respiratory failure with hypoxia requiring 4 L/min via nasal cannula * Initial presentation showed pulmonary edema on chest x-ray with small bilateral pleural effusions * Have been unable to wean supplemental oxygen below 10L/min via oxime mask. Started prednisone yesterday and improved today. Will check repeat CXR tomorrow * Wheezes improved today. Better aeration on exam. * Continue to titrate supplemental O2 between 88-92% Hypertension * Continue metoprolol, Entresto as above * Lisinopril discontinued at prior outpatient visit. Hypothyroidism * Last TSH elevated with normal free T4 * Repeat pending BPH with LUTS * Continue finasteride/tamsulosin Hypocalcemia: * Resolved DVT PPx: lovenox Diet: HH, low salt CODE STATUS: DNR/DNI, no intubation for worsening respiratory failure per pt & daughter Dispo: PCU for AoC CHF requiring PPV. Patient continues to require telemetry for profound hypoxia and atrial flutter (2) HTN (hypertension): (3) Vitamin D deficiency: (4) Hypothyroidism: (5) Hypercholesterolemia: (6) Coronary artery stenosis: (7) Chronic obstructive pulmonary disease: (8) Acute on chronic respiratory failure with hypoxia and hypercapnia: (9) Atrial flutter with rapid ventricular response: (10) Chronic hypoxemic respiratory failure: Admission and Anticipated Discharge Date Admission Date: June 23, 2022 Subjective Attending: Dr. Stoner Patient seen and examined in room 240. He seems to be doing much better today. Oxygen requirements have improved from 10 L/min by Oxymask to 6 L/min via nasal cannula. Patient saturating 92%. He is afebrile. Respiratory rate is 18. Chest x-rays yesterday showed worsening of what appear to be viral infiltrates. Procalcitonin is negative. Cultures negative. Bio fire is negative. There may be a component of acute COPD exacerbation. Patient was given 125 mg of methylprednisolone IV last night and another 40 mg IV this morning. He seems to be doing much better since the steroid burst. Patient denies any fever. He continues with a slightly productive cough with whitish sputum. He has no hemoptysis. He denies chest pain or tightness. He has no nausea or vomiting. He is very concerned about being discharged too early due to his acute hypoxia. He has no other acute complaints. Review of Systems Review of Systems: A total of 10 systems was reviewed and is negative other than as listed in the HPI Physical Exam Physical Exam: GENERAL : No acute distress EYES: No icterus, gaze conjugate NOSE: No evidence of epistaxis MOUTH: No lesions or candidiasis NECK: Supple LUNGS: Continues with bronchospasm but they seem improved. Better aeration today than yesterday. HEART: Regular, rate controlled ABDOMEN: Soft, NT, ND, BS Present EXTREMITIES: No LE edema, pedal pulses intact NEURO: A&OX3 Results & Data Results & Data ([facility]) Vital Signs (Past 12 Hours) Vital Signs Temp Pulse Resp BP Pulse Ox O2 Del Method O2 Flow Rate 07/02/22 16:00 Nasal Cannula 07/02/22 15:54 36.3 C L 64 18 89/48 L 92 Nasal Cannula 5 07/02/22 14:27 88 L 07/02/22 11:44 36.7 C 62 19 106/61 92 Nasal Cannula 6 07/02/22 09:34 Nasal Cannula 07/02/22 09:34 36.4 C L 66 26 H 98/62 L 93 Nasal Cannula 6 Critical Care Results & Data Vital Signs (Past 12 Hours) Vital Signs Temp Pulse Resp BP Pulse Ox O2 Del Method O2 Flow Rate 07/02/22 16:00 Nasal Cannula 07/02/22 15:54 36.3 C L 64 18 89/48 L 92 Nasal Cannula 5 07/02/22 14:27 88 L 07/02/22 11:44 36.7 C 62 19 106/61 92 Nasal Cannula 6 07/02/22 09:34 Nasal Cannula 07/02/22 09:34 36.4 C L 66 26 H 98/62 L 93 Nasal Cannula 6 Lab & Micro Results (Past 24 Hours) No Data to Display No Data to Display No Data to Display Diagnostic Findings (Past 24 Hours) Chest X-Ray 07/01/22 18:47 XR chest 1V portable CLINICAL HISTORY: Hypoxia with increased oxygen requirements. COMPARISON STUDY: 06/23/2022 TECHNIQUE: 1 view of the chest FINDINGS: Single frontal view of the chest demonstrates the cardiomediastinal silhouette to be within normal limits. Compared to the previous study, increased patchy alveolar opacities are seen superimposed over diffuse prominence of the interstitial markings. The findings are more concerning for a viral type pneumonitis rather than vascular congestion. There is again suspicion of a right pleural effusion. There is no evidence for vascular congestion. There is no acute osseous pathology. IMPRESSION: 1. Increased alveolar opacities superimposed over prominence of the interstitial markings. The findings are more concerning for a viral type pneumonitis rather than vascular congestion. 2. This also evidence for small right pleural effusion. ACT 112: Negative or not required by law. Electronically signed by: Jude Li M.D. 07/01/2022 7:13 PM I & O Totals 24 Hours 07/01/22 07/02/22 07/03/22 06:59 06:59 06:59 Intake Total 1010 / 1010 510 / 510 360 / 360 Output Total 825 / 825 900 / 900 300 / 300 Balance 185 / 185 -390 / -390 60 / 60 Cumulative 06/23/22 08:40 thru 07/02/22 14:41 Intake Total 4752 Output Total 5485 Balance -733 RT Ventilator Mngmt (Last Documented) Ventilator Ordered Settings Respiratory Rate 18 07/02/22 15:54 Fraction of Inspired Oxygen 60 06/28/22 08:02 Ventilator - PT Measurements Respiratory Rate 18 PG Care Time/CCT Total # of Minutes Spent Total Time Spent with Patient: Total time spent is greater than 50% in coordination of care (as documented) at patient's floor/unit and/or counseling patient: Coding Level of Care Code 12340 Subseq Hosp Care Lvl 2 Diagnoses Acute on chronic systolic heart failure I50.23 HTN (hypertension) I10 Vitamin D deficiency E55.9 Hypothyroidism E03.9 Hypercholesterolemia E78.00 Coronary artery stenosis I25.10 Chronic obstructive pulmonary disease J44.9 Acute on chronic respiratory failure with hypoxia and hypercapnia J96.21; J96.22 Atrial flutter with rapid ventricular response I48.92 Chronic hypoxemic respiratory failure J96.11
[2022-07-02] MEDS: TAMSULOSIN HCL 0.4 MG CAP PO SCH (19:56)
[2022-07-03] MEDS: LEVOTHYROXINE SODIUM 150 MCG TABLET PO SCH (06:17)
[2022-07-03 07:54] LABS: Basophils # (auto) 0.01 K/uL (0-0.2); Basophils % (auto) 0.1 %; Immature Granulocytes # (auto) 0.11 K/uL (0.00-0.02); Immature Granulocytes % (auto) 0.9 %; Lymphocytes # (auto) 1.59 K/uL (1.2-3.4); Lymphocytes % (auto) 12.6 %; Mean Corpuscular Hemoglobin 23.9 pg (25.0-34.0); Mean Corpuscular Hgb Conc 30.6 g/dL (32.0-36.0); Mean Corpuscular Volume 78.3 fL (80.0-100.0); Mean Platelet Volume 10.4 fL (9.4-12.4); Monocytes # (auto) 0.86 K/uL (0.24-0.82); Monocytes % (auto) 6.8 %; Neutrophils # (auto) 10.04 K/uL (1.4-6.5); Neutrophils % (auto) 79.6 %; Platelet Count 288 K/uL (130-400); RDW Coefficient of Variation 15.7 % (11.5-14.5); White Blood Count 12.61 K/ul (4.8-10.8)
[2022-07-03 08:24] LABS: BUN Creatinine Ratio 33.6 (10-20); Calcium 8.8 mg/dl (8.5-10.1); Creatinine Clr Calc Pharmacy 38.8 ml/min; Est GFR (African American) 54.5 ml/min; Potassium 4.3 mmol/L (3.5-5.1)
[2022-07-03] MEDS: predniSONE 20 MG TAB PO SCH (09:33)
[2022-07-03] MEDS: FUROSEMIDE 40 MG/4 ML VIAL IV SCH (09:35)
[2022-07-03] MEDS: FINASTERIDE 5 MG TAB PO SCH (09:35)
[2022-07-03] MEDS: ASPIRIN 81 MG ECTAB PO SCH (09:35)
[2022-07-03] MEDS: EZETIMIBE 10 MG TABLET PO SCH (09:36)
[2022-07-03] MEDS: SIMVASTATIN 20 MG TAB PO SCH (09:36)
[2022-07-03] MEDS: METOPROLOL SUCC 50MG EXT REL TAB PO SCH (09:36)
[2022-07-03] MEDS: AMIODARONE 200 MG TAB PO SCH (09:37)
[2022-07-03] MEDS: VALSARTAN/SACUBITRIL 26/24MG TAB PO SCH ×2 (09:37→19:48)
[2022-07-03] MEDS: FLUTICASONE/VILANTEROL 200/25MCG 14 PUFFS/INHALER INH SCH (09:38)
[2022-07-03] MEDS: POLYETHYLENE (MIRALAX) 17 GM PACK PO SCH (09:39)
[2022-07-03] MEDS: UMECLIDINIUM BROMIDE 62.5MCG/BLISTER 7 PUFFS/INHALER INH SCH (09:40)
[2022-07-03] MEDS: ERYTHROMYCIN OP OINT 5 MG/GM 3.5 GM TUBE OP SCH ×2 (09:40→14:30)
--- NOTE | 2022-07-03 11:23 | XRay Report ---
XR chest 1V portable CLINICAL HISTORY: Multifocal opacities, hypoxia TECHNIQUE: Single frontal radiograph of the chest was obtained. Comparison: Comparison is made to chest radiograph 07/01/2022 FINDINGS: No lines and tubes are seen. The cardiomediastinal silhouette is normal. Reticular interstitial opaci ties are seen. Multifocal alveolar densities are also seen. These are somewhat more conspicuous than the prior exam. No evidence of pleural effusion or pneumothorax. IMPRESSION: Interval increase in conspicuity of multifocal airspace opacities which may represent atelectasis, pn eumonia, and/or aspiration. ACT 112: Negative or not required by law. Electronically signed by: Isael Mclaughlin M.D. 07/03/2022 11:20 AM
--- NOTE | 2022-07-03 13:49 | CT Scan Report ---
CT chest diagnostic wo con CLINICAL HISTORY: Persistent/worsening hypoxia multifocal infiltrat TECHNIQUE: Multidetector row helical CT of the chest was performed. Coronal and sagittal reformations were obtained. Automated dose lowering techniques and/or adjustment according to patient size were u tilized for this exam. CT DOSE: 491.90 mGy.cm Comparison: Comparison is made to CT chest 10/05/2017 FINDINGS: Lungs and pleura: There is a 28 mm soft tissue density in the right upper lobe. Multiple nodular dens ities are seen throughout the lungs. There is a small right pleural effusion with associated atelecta sis and a focus of consolidation. Severe emphysematous changes and interstitial thickening is seen, n ew from prior exam. Heart and pericardium: Heart size is normal. No pericardial effusion. Vessels: Severe atherosclerotic changes in the aorta and coronary arteries. Mediastinum and niles: Subcentimeter lymph nodes are seen. Chest wall and lower neck: Unremarkable. Abdomen: Unremarkable. Bones: Degenerative changes in the thoracic spine. IMPRESSION: Consolidation is noted in the right lower lobe. Interval development of multifocal nodular opacities and worsening emphysema and interstitial scarring. Findings are nonspecific and may represent airspac e disease, however malignancy cannot be excluded. Follow-up to resolution is recommended. Small right pleural effusion. ACT 112: Positive. There are findings on this exam that require communication between the performing entity and the patient following Patient Test Result Information Act ([place] Act 112) guidelines. Electronically signed by: Isael Mclaughlin M.D. 07/03/2022 1:46 PM
[2022-07-03] MEDS: ENOXAPARIN INJ 40 MG/0.4 ML SYR SQ SCH (15:01)
[2022-07-03] MEDS: TAMSULOSIN HCL 0.4 MG CAP PO SCH (19:49)
--- NOTE | 2022-07-03 20:01 | Hospitalist Progress Note ---
Date of Service July 03, 2022 Assessment & Plan (1) Acute on chronic systolic heart failure: Plan: Attending: Dr. Stoner Impression: This is an 82-year-old male with a past medical history of CAD with history of PCI, systolic heart failure 2/2 ischemic cardiomyopathy, hypertension, emphysema, hypothyroidism, HLD, COPD, BPH with LUTS, a flutter with RVR, and chronic dyspnea who presented to the emergency department via EMS for 2 weeks of worsening shortness of breath. Says he uses about 4 L of oxygen at home. He has severe COPD with FEV1 of 32% based on PFT from 2019. He is a Gold class IV/D. Patient also follows with cardiology and most recently was s tarted on Entresto secondary to reduced ejection fraction. Acute on chronic CHF * Echocardiogram performed 06/11/2022 shows LVEF of 30 to 35%. Patient recently started on Entresto by his collar band creaser. * proBNP elevated at 198 but reduced from 384 prior * Patient is chronically on furosemide * Chest x-ray with asymmetric pulmonary edema with small bilateral pleural effusions which were previously noted * Repeat chest x-ray revealed worsening opacities concerning for viral etiology but no specific pulmonary edema * CT Chest today with Consolidation noted in the right lower lobe. Interval d evelopment of multifocal nodular opacities and worsening emphysema and interstitial scarring. * Continue diuretics per cardiology * Continue to monitor on telemetry CAD * Patient with history of PCI in 2000 with a drug-eluting stent. Continue baby aspirin 81 mg p.o. daily * Progression of ischemic cardiomyopathy * Cardiology consulted and following. Appreciate their input History of atrial flutter with RVR * Continue amiodarone 200 mg p.o. daily * Continue metoprolol succinate 50 mg every morning * Continue to monitor on telemetry * Anticoagulation previously discontinued and permanently deferred due to recurrent severe bleeding, discussed with pt on admit R Eye discharge * Resolved * Cultures with MSSA HLD * Continue Zetia and simvastatin COPD * Gold class IV/D * Follows with Dr. Odonnell in the outpatient clinic. Last seen in April * Spiriva and Incruse Ellipta as an outpatient. While inpatient we will use umeclidinium (AC) and fluticasone/vilanterol (ICS/LABA) * Pulmonary function testing from 2019 revealed FEV1 of 32% * Maintain SaO2 of 88 to 92% * Prednisone burst as listed below Hypoxia * Chronic respiratory failure with hypoxia requiring 4 L/min via nasal cannula * Initial presentation showed pulmonary edema on chest x-ray with small bilateral pleural effusions * Successfully wean patient off of Oxymask after starting steroids. Today is day #3 of Prednisone * Patient generally does well during the day but tends to desaturate at night. * Due to patient's CHF and chronic pulmonary disease, patient would benefit from a hospital bed so that he can elevate head of bed greater than 30 degrees. This will also reduce the risk of aspiration as patient develops increased shortness of breath with food * Check repeat ABG tomorrow with a.m. labs * Wheezes improved today. Better aeration on exam. * Continue to titrate supplemental O2 between 88-92% Hypertension * Continue metoprolol, Entresto as above * Lisinopril discontinued at prior outpatient visit. Hypothyroidism * Last TSH elevated with normal free T4 * Repeat 4.462 * Continue levothyroxine 150 mcg daily BPH with LUTS * Continue finasteride/tamsulosin Hypocalcemia: * Resolved DVT PPx: lovenox Diet: HH, low salt CODE STATUS: DNR/DNI, no intubation for worsening respiratory failure per pt & daughter Dispo: PCU for AoC CHF requiring PPV. Patient continues to require telemetry for profound hypoxia and atrial flutter (2) HTN (hypertension): (3) Vitamin D deficiency: (4) Hypothyroidism: (5) Hypercholesterolemia: (6) Coronary artery stenosis: (7) Chronic obstructive pulmonary disease: (8) Acute on chronic respiratory failure with hypoxia and hypercapnia: (9) Atrial flutter with rapid ventricular response: (10) Chronic hypoxemic respiratory failure: Admission and Anticipated Discharge Date Admission Date: June 23, 2022 Subjective Attending: Dr. Stoner Patient seen and examined in room 240. He is very frustrated because he maintaining saturations in the mid 90s during the day but every night seems to desaturate requiring Oxymask. Chest x-ray looks a little bit worse yesterday, since there is no significant improvement in oxygenation, patient agrees to CT chest without contrast. He continues with some very minimal sputum production that is clear to white. No hemoptysis. No chest pain or tightness. No other acute complaints. Review of Systems Review of Systems: A total of 10 systems was reviewed and is negative other than as listed in the HPI Physical Exam Physical Exam: GENERAL : No acute distress EYES: No icterus, gaze conjugate NOSE: No evidence of epistaxis MOUTH: No lesions or candidiasis NECK: Supple LUNGS: Continues with bronchospasm but they seem improved. Breath sounds are distant today HEART: Regular, rate controlled ABDOMEN: Soft, NT, ND, BS Present EXTREMITIES: No LE edema, pedal pulses intact. No pain to palpation NEURO: A&OX3 Results & Data Results & Data ([facility]) Vital Signs (Past 12 Hours) Vital Signs Temp Pulse Resp BP Pulse Ox O2 Del Method O2 Flow Rate 07/03/22 19:00 36.6 C 64 16 115/65 94 07/03/22 15:23 36.4 C L 65 22 100/59 L 94 Oxymask 6 07/03/22 10:00 36.3 C L 72 20 85/45 L 93 Nasal Cannula Critical Care Results & Data Vital Signs (Past 12 Hours) Vital Signs Temp Pulse Resp BP Pulse Ox O2 Del Method O2 Flow Rate 07/03/22 19:00 36.6 C 64 16 115/65 94 07/03/22 15:23 36.4 C L 65 22 100/59 L 94 Oxymask 6 07/03/22 10:00 36.3 C L 72 20 85/45 L 93 Nasal Cannula Lab & Micro Results (Past 24 Hours) RBC 4.60 M/uL (4.63-6.08) L 07/03/22 WBC 12.61 K/ul (4.8-10.8) H 07/03/22 Hgb 11.0 g/dl (14.0-18.0) L 07/03/22 Hct 36.0 % (40.1-51.0) L 07/03/22 MCV 78.3 fL (80.0-100.0) L 07/03/22 MCH 23.9 pg (25.0-34.0) L 07/03/22 MCHC 30.6 g/dL (32.0-36.0) L 07/03/22 RDW Standard Deviation 44.0 fL (36.4-46.3) 07/03/22 RDW Coefficient of Variation 15.7 % (11.5-14.5) H 07/03/22 Plt Count 288 K/uL (130-400) 07/03/22 MPV 10.4 fL (9.4-12.4) 07/03/22 Neutrophils (%) (Auto) 79.6 % 07/03/22 Lymphocytes (%) (Auto) 12.6 % 07/03/22 Monocytes # (Auto) 0.86 K/uL (0.24-0.82) H 07/03/22 Eosinophils # (Auto) 0.00 K/uL (0-0.50) 07/03/22 Immature Granulocyte % (Auto) 0.9 % 07/03/22 Neutrophils # (Auto) 10.04 K/uL (1.4-6.5) H 07/03/22 Lymphocytes # (Auto) 1.59 K/uL (1.2-3.4) 07/03/22 Monocytes # (Auto) 0.86 K/uL (0.24-0.82) H 07/03/22 Eosinophils # (Auto) 0.00 K/uL (0-0.50) 07/03/22 Basophils # (Auto) 0.01 K/uL (0-0.2) 07/03/22 Immature Granulocyte # (Auto) 0.11 K/uL (0.00-0.02) H 07/03 Na 136 mmol/L (136-145) 07/03/22 K 4.3 mmol/L (3.5-5.1) 07/03/22 Cl 94 mmol/L (98-107) L 07/03/22 CO2 39 mmol/L (21-32) H 07/03/22 Anion Gap 3 (3-11) 07/03/22 BUN 46 mg/dl (6-23) H 07/03/22 Creatinine 1.37 mg/dl (0.6-1.4) 07/03/22 Estimated GFR ( Amer) 54.5 ml/min 07/03/22 Estimated GFR (Non-Af Amer) 47.0 ml/min 07/03/22 BUN/Creatinine Ratio 33.6 (10-20) H 07/03/22 Glu 105 mg/dl (70-99(Fasting)) H 07/03/22 Ca 8.8 mg/dl (8.5-10.1) 07/03/22 Calcium Level 8.8 mg/dl (8.5-10.1) 07/03/22 07:09 Diagnostic Findings (Past 24 Hours) Chest X-Ray 07/03/22 07:00 XR chest 1V portable CLINICAL HISTORY: Multifocal opacities, hypoxia TECHNIQUE: Single frontal radiograph of the chest was obtained. Comparison: Comparison is made to chest radiograph 07/01/2022 FINDINGS: No lines and tubes are seen. The cardiomediastinal silhouette is normal. Reticular interstitial opacities are seen. Multifocal alveolar densities are also seen. These are somewhat more conspicuous than the prior exam. No evidence of pleural effusion or pneumothorax. IMPRESSION: Interval increase in conspicuity of multifocal airspace opacities which may represent atelectasis, pneumonia, and/or aspiration. ACT 112: Negative or not required by law. Electronically signed by: Isael Mclaughlin M.D. 07/03/2022 11:[address] 07/03/22 12:32 CT chest diagnostic wo con CLINICAL HISTORY: Persistent/worsening hypoxia multifocal infiltrat TECHNIQUE: Multidetector row helical CT of the chest was performed. Coronal and sagittal reformations were obtained. Automated dose lowering techniques and/or adjustment according to patient size were utilized for this exam. CT DOSE: 491.90 mGy.cm Comparison: Comparison is made to CT chest 10/05/2017 FINDINGS: Lungs and pleura: There is a 28 mm soft tissue density in the right upper lobe. Multiple nodular densities are seen throughout the lungs. There is a small right pleural effusion with associated atelectasis and a focus of consolidation. Severe emphysematous changes and interstitial thickening is seen, new from prior exam. Heart and pericardium: Heart size is normal. No pericardial effusion. Vessels: Severe atherosclerotic changes in the aorta and coronary arteries. Mediastinum and niles: Subcentimeter lymph nodes are seen. Chest wall and lower neck: Unremarkable. Abdomen: Unremarkable. Bones: Degenerative changes in the thoracic spine. IMPRESSION: Consolidation is noted in the right lower lobe. Interval development of multifocal nodular opacities and worsening emphysema and interstitial scarring. Findings are nonspecific and may represent airspace disease, however malignancy cannot be excluded. Follow-up to resolution is recommended. Small right pleural effusion. ACT 112: Positive. There are findings on this exam that require communication between the performing entity and the patient following Patient Test Result Information Act ([place] Act 112) guidelines. Electronically signed by: Isael Mclaughlin M.D. 07/03/2022 1:46 PM I & O Totals 24 Hours 07/02/22 07/03/22 07/04/22 06:59 06:59 06:59 Intake Total 510 / 510 460 / 460 450 / 450 Output Total 900 / 900 675 / 675 851 / 851 Balance -390 / -390 -215 / -215 -401 / -401 Cumulative 06/23/22 08:40 thru 07/03/22 19:15 Intake Total 5302 Output Total 6711 Balance -1409 RT Ventilator Mngmt (Last Documented) Ventilator Ordered Settings Respiratory Rate 16 07/03/22 19:00 Fraction of Inspired Oxygen 60 06/28/22 08:02 Ventilator - PT Measurements Respiratory Rate 16 PG Care Time/CCT Total # of Minutes Spent Total Time Spent with Patient: Total time spent is greater than 50% in coordination of care (as documented) at patient's floor/unit and/or counseling patient: Coding Level of Care Code 54258 Subseq Hosp Care Lvl 2 Diagnoses Acute on chronic systolic heart failure I50.23 HTN (hypertension) I10 Vitamin D deficiency E55.9 Hypothyroidism E03.9 Hypercholesterolemia E78.00 Coronary artery stenosis I25.10 Chronic obstructive pulmonary disease J44.9 Acute on chronic respiratory failure with hypoxia and hypercapnia J96.21; J96.22 Atrial flutter with rapid ventricular response I48.92 Chronic hypoxemic respiratory failure J96.11
[2022-07-04] MEDS: LEVOTHYROXINE SODIUM 150 MCG TABLET PO SCH (06:11)
[2022-07-04 06:20] LABS: Allen Test POS (Pos); Base Excess ABG 15.8 mEq/L (-9-1.8); HCO3 ABG 42 mmol/L (19-24); Oxygen Saturation ABG 94.6 % (90-95); PCO2 ABG 55 mmHg (35-46); PO2 ABG 60 mmHg (80-95); pH ABG 7.49 (7.35-7.45)
[2022-07-04] MEDS: FUROSEMIDE 40 MG/4 ML VIAL IV SCH (08:42)
[2022-07-04] MEDS: EZETIMIBE 10 MG TABLET PO SCH (08:43)
[2022-07-04] MEDS: FINASTERIDE 5 MG TAB PO SCH (08:43)
[2022-07-04] MEDS: SIMVASTATIN 20 MG TAB PO SCH (08:43)
[2022-07-04] MEDS: ASPIRIN 81 MG ECTAB PO SCH (08:44)
[2022-07-04] MEDS: predniSONE 20 MG TAB PO SCH (08:44)
[2022-07-04] MEDS: AMIODARONE 200 MG TAB PO SCH (08:45)
[2022-07-04] MEDS: METOPROLOL SUCC 50MG EXT REL TAB PO SCH (08:45)
[2022-07-04] MEDS: VALSARTAN/SACUBITRIL 26/24MG TAB PO SCH ×2 (08:45→20:18)
[2022-07-04] MEDS: FLUTICASONE/VILANTEROL 200/25MCG 14 PUFFS/INHALER INH SCH (08:46)
[2022-07-04] MEDS: UMECLIDINIUM BROMIDE 62.5MCG/BLISTER 7 PUFFS/INHALER INH SCH (08:47)
[2022-07-04] MEDS: POLYETHYLENE (MIRALAX) 17 GM PACK PO SCH (09:03)
[2022-07-04] MEDS: cefTRIAXone SODIUM 1,000 MG in DEXTROSE 5% 50 ML IV SCH (09:56)
[2022-07-04] MEDS ORDERED: HYDROCORTISONE SOD 50 MG in SYRINGE 0 ML IV SCH (10:15)
[2022-07-04] MEDS: methylPREDNISolone 40 MG in SYRINGE 0 ML IV SCH ×2 (10:50→18:14)
[2022-07-04] MEDS ORDERED: AZITHROMYCIN 500 MG in DEXTROSE 5% 250 ML IV SCH (11:00)
--- NOTE | 2022-07-04 11:42 | Hospitalist Progress Note ---
Date of Service July 04, 2022 Assessment & Plan (1) Acute on chronic systolic heart failure: Plan: Suspected on admission, concurrent with right lower lobe pneumonia and exacerbation of COPD. Treated with diuresis. Continue current medications. Monitor intake and output. (2) HTN (hypertension): Plan: Treated with metoprolol and Entresto. Currently controlled (3) Vitamin D deficiency: Plan: Continue vitamin D supplemental therapy (4) Hypothyroidism: Plan: Continue thyroid replacement therapy (5) Hypercholesterolemia: Plan: Continue low-cholesterol diet and statin therapy (6) Coronary artery stenosis: Plan: Stable. Continue current medical management (7) Chronic obstructive pulmonary disease: Plan: Acute exacerbation due to right lower lobe pneumonia. Continue treatment with azithromycin and Rocephin. Parenteral steroid therapy. Nebulizer treatments. (8) Acute on chronic respiratory failure with hypoxia and hypercapnia: Plan: Oxygen per nasal cannula to maintain saturation greater than 90%. Wean oxygen as tolerated back to baseline 4 L/min as tolerated (9) Atrial flutter with rapid ventricular response: Plan: Telemetry. Medical management. (10) Chronic hypoxemic respiratory failure: Plan: Acute exacerbation of chronic respiratory failure. Oxygen to maintain saturation greater than 90%. Wean down to baseline 4 L/min as tolerated (11) Pneumonia: Plan: Right lower lobe as seen on chest CT scan. Now on azithromycin and Rocephin, day 1. Obtain sputum culture if sputum is produced. Serial chest x-rays until clear. Plan Treat underlying pneumonia and COPD exacerbation. Eventual discharge back to home Admission and Anticipated Discharge Date Admission Date: June 23, 2022 Subjective Alert and oriented. No complaints. The patient was informed that the chest CT scan done on July 03 reveals evidence of right lower lobe pneumonia. He is now on azithromycin and Rocephin. Oral prednisone switched to parenteral methylprednisolone. Review of Systems Review of Systems: Constitutional-no fever or chills ENT-no blurred vision, no double vision, no epistaxis, no sore throat Respiratory-slightly productive cough. Dyspnea on exertion Cardiac-no palpitations, no chest pain, no syncope GI-no nausea, vomiting, diarrhea, melena, hematochezia -no urinary retention, no urinary incontinence, no dysuria, no hematuria Musculoskeletal-no joint pain, no muscle tenderness Skin-no bruising, no rashes, no pruritus Neuro-no isolated weakness, no paresthesia, no weakness Psych-no depression, no anxiety Physical Exam Physical Exam: General-alert and oriented x3, no fevers, no chills HEENT-head atraumatic and normocephalic, TMs intact bilaterally, pupils equal and reactive to light, extraocular muscles intact Neck-no lymphadenopathy or thyromegaly, trachea midline Chest-adventitious respiratory noise. End expiratory wheezes bilaterally. Mildly tachypneic at rest Cardiac-regular rate and rhythm, normal S1 and S2, no murmurs Abdomen-normal bowel sounds, nontender, no hepatosplenomegaly Extremities-no cyanosis, clubbing, or edema Neuro-cranial nerves II through XII intact, motor and sensory function within normal limits, strength symmetrical , no focal deficits Psych-normal affect, normal mood Results & Data Results & Data ([facility]) Vital Signs (Past 12 Hours) Vital Signs Temp Pulse Pulse Resp BP Pulse Ox O2 Del Method 07/04/22 07:49 74 07/04/22 07:46 Oxymask 07/04/22 07:41 36.3 C L 68 20 101/60 98 High Flow Nasal Cannula 07/04/22 06:40 88 L High Flow Nasal Cannula 07/04/22 06:30 75 L High Flow Nasal Cannula 07/04/22 03:00 36.9 C 67 18 95/58 L 94 O2 Flow Rate 07/04/22 07:49 07/04/22 07:46 10 07/04/22 07:41 10 07/04/22 06:40 10 07/04/22 06:30 8 07/04/22 03:00 Laboratory Results 07/03/22 07:09 07/03/22 07:09 PG Care Time/CCT Total # of Minutes Spent Total Time Spent with Patient: Total time spent is greater than 50% in coordination of care (as documented) at patient's floor/unit and/or counseling patient: Coding Level of Care Code 60598 Subseq Hosp Care Lvl 3 Diagnoses Acute on chronic systolic heart failure I50.23 HTN (hypertension) I10 Vitamin D deficiency E55.9 Hypothyroidism E03.9 Hypercholesterolemia E78.00 Coronary artery stenosis I25.10 Chronic obstructive pulmonary disease J44.1 COPD type: COPD with acute exacerbation Acute on chronic respiratory failure with hypoxia and hypercapnia J96.21; J96.22 Atrial flutter with rapid ventricular response I48.92 Chronic hypoxemic respiratory failure J96.11 Pneumonia J18.9 (1) Chronic obstructive pulmonary disease COPD type: COPD with acute exacerbation Qualified Code(s): J44.1 - Chronic obstructive pulmonary disease with (acute) exacerbation
[2022-07-04] MEDS: ENOXAPARIN INJ 40 MG/0.4 ML SYR SQ SCH (15:19)
[2022-07-04] MEDS: TAMSULOSIN HCL 0.4 MG CAP PO SCH (20:18)
[2022-07-05] MEDS: methylPREDNISolone 40 MG in SYRINGE 0 ML IV SCH (03:38)
[2022-07-05] MEDS: LEVOTHYROXINE SODIUM 150 MCG TABLET PO SCH (05:55)
[2022-07-05] MEDS: METOPROLOL SUCC 50MG EXT REL TAB PO SCH (08:32)
[2022-07-05] MEDS: FUROSEMIDE 40 MG/4 ML VIAL IV SCH (08:33)
[2022-07-05] MEDS: AMIODARONE 200 MG TAB PO SCH (08:33)
[2022-07-05] MEDS: SIMVASTATIN 20 MG TAB PO SCH (08:33)
[2022-07-05] MEDS: EZETIMIBE 10 MG TABLET PO SCH (08:33)
[2022-07-05] MEDS: FINASTERIDE 5 MG TAB PO SCH (08:33)
[2022-07-05] MEDS: ASPIRIN 81 MG ECTAB PO SCH (08:33)
[2022-07-05] MEDS: FLUTICASONE/VILANTEROL 200/25MCG 14 PUFFS/INHALER INH SCH (08:33)
[2022-07-05] MEDS: VALSARTAN/SACUBITRIL 26/24MG TAB PO SCH ×2 (08:34→20:04)
[2022-07-05] MEDS: cefTRIAXone SODIUM 1,000 MG in DEXTROSE 5% 50 ML IV SCH (08:35)
[2022-07-05] MEDS: POLYETHYLENE (MIRALAX) 17 GM PACK PO SCH (08:48)
[2022-07-05] MEDS ORDERED: PIPERACILLIN/TAZOBACTAM 3.375 GM in DEXTROSE 5% 100 ML IV ONE (10:00)
[2022-07-05] MEDS: UMECLIDINIUM BROMIDE 62.5MCG/BLISTER 7 PUFFS/INHALER INH SCH (10:03)
[2022-07-05 11:26] LABS: Adenovirus PCR Not Detected (NotDetected); Bordetella parapertussis PCR Not Detected (NotDetected); Bordetella pertussis PCR Not Detected (NotDetected); Chlamydia pneumoniae PCR Not Detected (NotDetected); Coronavirus 229E PCR Not Detected (NotDetected); Coronavirus CoV-2 (COVID19)PCR Not Detected (NotDetected); Coronavirus HKU1 PCR Not Detected (NotDetected); Coronavirus NL63 PCR Not Detected (NotDetected); Coronavirus OC43PCR Not Detected (NotDetected); Human Metapneumovirus PCR Not Detected (NotDetected); Influenza A PCR Not Detected (NotDetected); Influenza B PCR Not Detected (NotDetected); Mycoplasma pneumoniae PCR Not Detected (NotDetected); Parainfluenza Virus 1 PCR Not Detected (NotDetected); Parainfluenza Virus 2 PCR Not Detected (NotDetected); Parainfluenza Virus 3 PCR Not Detected (NotDetected); Parainfluenza Virus 4 PCR Not Detected (NotDetected); Respiratory Syncytial VirusPCR Not Detected (NotDetected); Rhinovirus/Enterovirus PCR Not Detected (NotDetected)
[2022-07-05] MEDS: DOXYCYCLINE HYCLATE 100 MG in DEXTROSE 5% 100 ML IV SCH ×2 (12:04→19:59)
--- NOTE | 2022-07-05 15:44 | Fluoroscopy Report ---
MODIFIED BARIUM SWALLOW CLINICAL HISTORY: r/o aspiration COMPARISON STUDY: None. FLUOROSCOPY TIME: 2 minutes. TECHNIQUE: A modified barium swallow was performed in conjunction with Speech Pathology. The patient ingested varying consistencies of barium containing material. Video fluoroscopy was performed. FINDINGS: Note was made of minimal penetration with thin liquids. However, no aspiration was noted. T here is no aspiration with mildly thick liquids, pudding or crackers with paste. Epiglottic inversion was normal. Laryngeal elevation was normal. Moderate esophageal dysmotility was noted. IMPRESSION: 1. No tracheal aspiration identified. 2. Mild esophageal dysmotility. 3. Full recommendations by Speech pathology to follow. ACT 112: Negative or not required by law. Electronically signed by: Eren Cardona M.D. 07/05/2022 3:42 PM
[2022-07-05] MEDS: ENOXAPARIN INJ 40 MG/0.4 ML SYR SQ SCH (16:05)
[2022-07-05] MEDS: PIPERACILLIN/TAZOBACTAM 3.375 GM in DEXTROSE 5% 100 ML IV SCH (16:06)
--- NOTE | 2022-07-05 17:10 | Hospitalist Progress Note ---
Date of Service July 05, 2022 Assessment & Plan (1) Acute on chronic systolic heart failure: Plan: Suspected on admission, at present seems well compensated; switch Lasix to 40 mg daily; continue Entresto and metoprolol succinate (2) Acute on chronic respiratory failure with hypoxia and hypercapnia: Plan: Noted nodular opacities, noted procalcitonin; however, at present I escalated to Zosyn plus Doxy for possible HAP though not definite that it is acute bacterial; sputum culture; might solicit pulmonary inputknown to them; still high oxygen need compared to baseline; saturation goal 88 to 92% (3) HTN (hypertension): Plan: Pressures acceptableno change (4) Vitamin D deficiency: Plan: Continue vitamin D supplemental therapy (5) Hypothyroidism: Plan: Continue thyroid replacement therapy (6) Hypercholesterolemia: Plan: Continue low-cholesterol diet and statin therapy (7) Coronary artery stenosis: Plan: Stable. Continue current medical management (8) Chronic obstructive pulmonary disease: Plan: Gold class D, pulmonary office note noted; continue Incruse Ellipta and Symbicort or equivalent; I switched steroids to 40 mg prednisone (9) Atrial flutter with rapid ventricular response: Plan: At present rate controlled and appears sinus (10) Pneumonia: Plan: Treat as HAP for now; as above, sputum culture; will add chest vest if feasible. Plan Follow mild anemia; mobilize Admission and Anticipated Discharge Date Admission Date: June 23, 2022 Subjective Follow-up of presentation with shortness of breathcontinued shortness of breath; continued higher oxygen need than baseline Physical Exam Physical Exam: Constitutional and general: No acute distress, looks biologic age Head and face: No puffiness, atraumatic Eyes: No scleral icterus, extraocular movements normal Neck: Supple, no JVD Musculoskeletal: No acute joint swelling, no bony abnormalities Skin/dermatologic/integument: No rash, no purpura Hematologic and lymphatic: pallor +, no petechia Gastrointestinal/abdomen: Nondistended, soft, nonacute Neurologic: Cranial nerves intact, nonfocal Psychiatry: Awake, alert, pleasant, communicative Cardiovascular: Heart rhythm regular, no rub, no murmur, no gallop Respiratory: Chest movements equal, no use of accessory muscles, no adventitious sounds; decreased breath sounds Extremities: No edema, no cyanosis Results & Data Results & Data ([facility]) Vital Signs (Past 12 Hours) Vital Signs Temp Pulse Pulse Resp BP Pulse Ox O2 Del Method 07/05/22 16:00 59 L 07/05/22 16:00 36.6 C 66 20 108/57 L 90 Nasal Cannula 07/05/22 11:49 36.5 C 70 22 103/51 L 91 Nasal Cannula 07/05/22 09:00 High Flow Nasal Cannula 07/05/22 07:00 70 07/05/22 08:15 36.3 C L 73 22 94/58 L 97 Oxymask 07/05/22 05:58 89 L Nasal Cannula O2 Flow Rate 07/05/22 16:00 07/05/22 16:00 8.0 07/05/22 11:49 8.0 07/05/22 09:00 8 07/05/22 07:00 07/05/22 08:15 8.0 07/05/22 05:58 8 Laboratory Results Laboratory Results - last 24 hr 07/05/22 07/05/22 10:00 10:00 Nasal Screen MRSA (PCR) Negative Adenovirus (PCR) Not Detected B. pertussis DNA (PCR) Not Detected B.parapertussis DNA PCR Not Detected C. pneumoniae DNA (PCR) Not Detected Coronavirus OC43 (PCR) Not Detected Coronavirus HKU1 (PCR) Not Detected Coronavirus 229E (PCR) Not Detected SARS-CoV-2 (PCR) Not Detected Coronavirus NL63 (PCR) Not Detected Human Metapneumovir PCR Not Detected Influenza Type A (PCR) Not Detected Influenza Type B (PCR) Not Detected M. pneumoniae (PCR) Not Detected Parainfluenza 1 (PCR) Not Detected Parainfluenza 2 (PCR) Not Detected Parainfluenza 3 (PCR) Not Detected Parainfluenza 4 (PCR) Not Detected RSV (PCR) Not Detected Entero/Rhino (PCR) Not Detected PG Care Time/CCT Total # of Minutes Spent Total Time Spent with Patient: Total time spent is greater than 50% in coordination of care (as documented) at patient's floor/unit and/or counseling patient: Coding Level of Care Code 62587 Subseq Hosp Care Lvl 2 Diagnoses Acute on chronic systolic heart failure I50.23 Acute on chronic respiratory failure with hypoxia and hypercapnia J96.21; J96.22 HTN (hypertension) I10 Vitamin D deficiency E55.9 Hypothyroidism E03.9 Hypercholesterolemia E78.00 Coronary artery stenosis I25.10 Chronic obstructive pulmonary disease J44.1 COPD type: COPD with acute exacerbation Atrial flutter with rapid ventricular response I48.92 Pneumonia J18.9 (1) Chronic obstructive pulmonary disease COPD type: COPD with acute exacerbation Qualified Code(s): J44.1 - Chronic obstructive pulmonary disease with (acute) exacerbation
[2022-07-05] MEDS: TAMSULOSIN HCL 0.4 MG CAP PO SCH (20:04)
[2022-07-06] MEDS: PIPERACILLIN/TAZOBACTAM 3.375 GM in DEXTROSE 5% 100 ML IV SCH ×3 (00:42→16:54)
[2022-07-06] MEDS: LEVOTHYROXINE SODIUM 150 MCG TABLET PO SCH (06:39)
[2022-07-06 07:01] LABS: Basophils # (auto) 0.01 K/uL (0-0.2); Basophils % (auto) 0.1 %; Eosinophils # (auto) 0.02 K/uL (0-0.50); Eosinophils % (auto) 0.1 %; Hematocrit (blood only) 35.3 % (40.1-51.0); Immature Granulocytes # (auto) 0.18 K/uL (0.00-0.02); Immature Granulocytes % (auto) 1.3 %; Lymphocytes # (auto) 1.95 K/uL (1.2-3.4); Mean Corpuscular Hemoglobin 23.8 pg (25.0-34.0); Mean Corpuscular Hgb Conc 31.2 g/dL (32.0-36.0); Mean Corpuscular Volume 76.2 fL (80.0-100.0); Monocytes # (auto) 1.29 K/uL (0.24-0.82); Monocytes % (auto) 9.3 %; Neutrophils # (auto) 10.46 K/uL (1.4-6.5); Neutrophils % (auto) 75.2 %; Platelet Count 291 K/uL (130-400); RDW Coefficient of Variation 16.4 % (11.5-14.5); RDW Standard Deviation 44.5 fL (36.4-46.3); Red Blood Count 4.63 M/uL (4.63-6.08); White Blood Count 13.91 K/ul (4.8-10.8)
[2022-07-06 07:29] LABS: Albumin Globulin Ratio 0.9 (0.9-2); Albumin Level 2.5 gm/dl (3.4-5.0); Bilirubin,Total 0.5 mg/dl (0.2-1.0); Calcium 8.4 mg/dl (8.5-10.1); Creatinine Clr Calc Pharmacy 39.4 ml/min; Est GFR (African American) 55.5 ml/min; Est GFR (Non-African American) 47.9 ml/min; Globulin 2.8 gm/dl (2.5-4.0); Magnesium 2.1 mg/dl (1.7-2.4); Phosphorus 2.6 mg/dl (2.5-4.9); Total Protein 5.3 gm/dl (6.0-8.3)
[2022-07-06] MEDS: DOXYCYCLINE HYCLATE 100 MG in DEXTROSE 5% 100 ML IV SCH ×2 (08:00→20:59)
[2022-07-06] MEDS: FUROSEMIDE 40 MG TAB PO SCH (08:00)
[2022-07-06] MEDS: METOPROLOL SUCC 50MG EXT REL TAB PO SCH (08:00)
[2022-07-06] MEDS: predniSONE 20 MG TAB PO SCH (08:00)
[2022-07-06] MEDS: SIMVASTATIN 20 MG TAB PO SCH (08:00)
[2022-07-06] MEDS: EZETIMIBE 10 MG TABLET PO SCH (08:00)
[2022-07-06] MEDS: FINASTERIDE 5 MG TAB PO SCH (08:00)
[2022-07-06] MEDS: POLYETHYLENE (MIRALAX) 17 GM PACK PO SCH (08:01)
[2022-07-06] MEDS: AMIODARONE 200 MG TAB PO SCH (08:01)
[2022-07-06] MEDS: VALSARTAN/SACUBITRIL 26/24MG TAB PO SCH ×2 (08:01→19:50)
[2022-07-06] MEDS: ASPIRIN 81 MG ECTAB PO SCH (08:01)
[2022-07-06] MEDS: FLUTICASONE/VILANTEROL 200/25MCG 14 PUFFS/INHALER INH SCH (08:01)
[2022-07-06] MEDS: UMECLIDINIUM BROMIDE 62.5MCG/BLISTER 7 PUFFS/INHALER INH SCH (08:01)
--- NOTE | 2022-07-06 13:29 | Pulmonary Consultation ---
Date of Consultation July 06, 2022 Assessment & Plan (1) Pneumonia: (2) Acute on chronic respiratory failure with hypoxia and hypercapnia: (3) Chronic obstructive pulmonary disease: COPD type: COPD with acute exacerbation Qualified Code(s): J44.1 - Chronic obstructive pulmonary disease with (acute) exacerbation (4) Shortness of breath: (5) Goals of care, counseling/discussion: Plan 82-year-old male with a past medical history of nonischemic cardiomyopathy, advanced COPD, chronic hypoxemic respiratory failure and paroxysmal atrial flutter presenting to the hospital due to increasing shortness of breath. He was found to have multifocal infiltrates on CT chest and is currently being treated for pneumonia. Continue current antibiotic regimen. We will change his inhalers to nebulized Brovana and budesonide. Continue Incruse Ellipta. We will start hypertonic saline and vest therapy 4 times daily to promote mucociliary clearance. Recommend aspiration precautions. 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 Recommend discontinuing prednisone therapy after 5 days. Patient with evidence of hypercapnic respiratory failure and ABG and compensated metabolic alkalosis. We will order BiPAP to be used when sleeping. Overall his prognosis is very poor due to severe deconditioning, advanced COPD and cardiomyopathy. I discussed hospice and palliative care with the patient. He is interested in going home and I discussed the possibility of home with hospice. I will consult palliative care to discuss this further with him. He is currently a DNR/DNI. Thank you for the consultation. Please call with questions. History of Present Illness Reason for Consultation: Abnormal CT chest Attending Physician: Nidhi Pfeiffer MD History of Present Illness 82-year-old male with a past medical history of ischemic cardiomyopathy with an LVEF of 20 to 25%, COPD group D, chronic hypoxemic respiratory failure and atrial flutter presenting to the hospital due to increasing shortness of breath. CT of the chest completed this admission demonstrated emphysematous change and increased interstitial markings. There is also multifocal infiltrates with the most prominent infiltrates in the right lower lobe. There is a nodular opacity in the right lower lobe. He has been on antibiotics throughout this hospitalization which were recently changed to Zosyn and doxycycline. Patient was on Symbicort and Incruse Ellipta as an outpatient. He had a PFT in 2019 which revealed an FEV1 of 32% predicted. His mobility is normally very limited due to chronic breathlessness. He is currently saturating 96% on 8 L of oxygen. His procalcitonin this admission was 0.05. His white count is mildly elevated at 13,091. Mild anemia with a hemoglobin of 11. No significant peripheral eosinophilia. He is currently on 40 mg IV Lasix daily and 40 mg of prednisone daily. His troponin this admission was mildly elevated to 72.7. Patient notes shortness of breath with even mild exertion such as moving around in bed. He denies any chest pain. Minimal cough with occasional production. No hemoptysis. No fevers, chills or night sweats. Appetite is poor. His daughter is currently at bedside and notes that he will be going home with her. He has not gotten out of bed today. He wants to go home and is not interested in going to rehab or residential. Allergies Allergy/AdvReac Type Severity Reaction Status Date / Time fluticasone furoate AdvReac cannot void Verified 06/23/22 15:26 [From Trelegy Ellipta] umeclidinium AdvReac cannot void Verified 06/23/22 15:26 [From Trelegy Ellipta] vilanterol AdvReac cannot void Verified 06/23/22 15:26 [From Trelegy Ellipta] Home Medications Medication Instructions Recorded Confirmed Type aspirin 81 mg tablet,delayed 81 mg PO QAM 06/22/19 06/23/22 History release (Adult Aspirin Regimen) guaifenesin 600 mg tablet, 600 mg PO Q12H 08/01/20 06/23/22 History extended release 12 hr (Mucinex) nitroglycerin 0.4 mg sublingual 0.4 mg sublingual Q5M PRN Chest 06/20/21 06/23/22 History tablet Pain tamsulosin 0.4 mg capsule 0.4 mg PO HS #90 caps 07/13/21 06/23/22 Rx albuterol sulfate 90 mcg/actuation 2 puff inhalation QID PRN 07/14/21 06/23/22 Rx aerosol inhaler (Ventolin HFA) shortness of breath #18 grams amiodarone 200 mg tablet 200 mg PO QAM #30 tabs 07/31/21 06/23/22 Rx levalbuterol HCl 1.25 mg/3 mL See Rx Instructions .Route 12/21/21 06/23/22 Rx solution for nebulization .COMPLEX #300 mL levothyroxine 150 mcg tablet 150 mcg PO QAM #90 tabs 03/05/22 06/23/22 Rx metoprolol succinate 50 mg 50 mg PO QAM #90 tabs 03/19/22 06/23/22 Rx tablet,extended release 24 hr sacubitril 24 mg-valsartan 26 mg 1 tab PO BID #60 tabs 04/02/22 06/23/22 Rx tablet (Entresto) budesonide-formoterol HFA 160 2 inh inhalation Q12H 04/04/22 06/23/22 History mcg-4.5 mcg/actuation aerosol inhaler (Symbicort) ezetimibe 10 mg tablet 10 mg PO QAM 04/29/22 06/23/22 History finasteride 5 mg tablet 5 mg PO QAM 04/29/22 06/23/22 History simvastatin 40 mg tablet 40 mg PO QPM 04/29/22 06/23/22 History furosemide 20 mg tablet (Lasix) 20 mg PO DAILY #30 tabs 05/03/22 06/23/22 Rx umeclidinium 62.5 mcg/actuation 1 inh inhalation QAM #30 ea 05/26/22 06/23/22 Rx blister powder for inhalation (Incruse Ellipta) Patient History Medical History (Updated 07/06/22 @ 14:24 by Thad Odonnell MD) Acute on chronic respiratory failure with hypoxia and hypercapnia Chronic dyspnea Chronic hypoxemic respiratory failure Chronic obstructive pulmonary disease Cough Decreased cardiac ejection fraction Dyspnea Goals of care, counseling/discussion History of degenerative joint disease HTN (hypertension) Hypercholesterolemia Hypothyroidism Ischemic cardiomyopathy Past myocardial infarction Solitary pulmonary nodule Urinary retention Surgical History History of intravascular stent placement Family History Mother Myocardial infarction Father Acute pneumonitis Asthma Sister Asthma Brother Myocardial infarction Denies family history of Ovarian cancer Prostate cancer Breast cancer Colorectal cancer Social History Smoking Status: Former smoker Tobacco Type: Cigarettes Age Started Using Tobacco: 10; packs per day: 2; Years Smoked: 50; Smoking End Date: 03/2001; Number of Years Since Quit: 21; Second Hand Exposure: No; Hx Alcohol Use: No Hx Substance Use: No Preferred Language: Maltese Communication Ability: Effective Visual Impairment: Limited Hearing Ability: Normal Vacuum Tester Cans Required: No Beliefs That Will Affect Care: None marital status: / Current Living Situation: Alone current occupational status: retired How many Children do You have: 1 Feels Safe at Home: Yes Childhood Exposure to Second-Hand Smoke: Yes caffeine: Yes during the past year weight has: remained stable Dental Care, Regularly: No Physical Activity Frequency: Does not Exercise Seatbelt Use: never Sunscreen Use: No Assistive Devices: Oxygen - Continuous and Walker Review of Systems Review of Systems: All systems reviewed & are unremarkable except as noted in HPI & below Physical Exam Constitutional: Frail and elderly appearing male in no apparent distress Eyes: PERRL, conjunctivae normal, anicteric sclerae Respiratory: Diminished lung sounds bilaterally. Prolonged phase of exhalation. No wheezing. Cardiovascular: Pain relief, rhythm. 3+ pitting edema in the lower extremities bilaterally. Gastrointestinal (Abdomen): normal bowel sounds, soft, nontender, no hepatosplenomegaly Musculoskeletal: no cyanosis or clubbing, extremities motor strength 5/5 Neurologic: PERRL, EOMI, accommodation nl, no face palsy, no dysarthria Psychiatric: A+Ox3, euthymic affect Results & Data Results & Data ([facility]) Vital Signs (Past 12 Hours) Vital Signs Temp Pulse Resp BP Pulse Ox O2 Del Method O2 Flow Rate 07/06/22 11:00 36.9 C 69 18 114/71 96 07/06/22 08:12 36.8 C 69 18 110/69 97 07/06/22 04:16 36.7 C 83 18 104/66 94 High Flow Nasal Cannula 8 PG Care Time/CCT Total # of Minutes Spent Total Time Spent with Patient: Total time spent is greater than 50% in coordination of care (as documented) at patient's floor/unit and/or counseling patient: Coding Level of Care Code 86085 Initial Inpt Care Lvl 3 Diagnoses Pneumonia J18.9 Acute on chronic respiratory failure with hypoxia and hypercapnia J96.21; J96.22 Chronic obstructive pulmonary disease J44.1 COPD type: COPD with acute exacerbation Shortness of breath R06.02 Goals of care, counseling/discussion Z71.89
[2022-07-06] MEDS: PANTOprazole 40 MG TAB PO SCH (13:30)
[2022-07-06] MEDS: ENOXAPARIN INJ 40 MG/0.4 ML SYR SQ SCH (15:30)
--- NOTE | 2022-07-06 16:10 | Hospitalist Progress Note ---
Date of Service July 06, 2022 Assessment & Plan (1) Acute on chronic systolic heart failure: Plan: Suspected on admission, at present seems well compensated; continue current Lasix; continue Entresto and metoprolol succinate (2) Acute on chronic respiratory failure with hypoxia and hypercapnia: Plan: Noted nodular opacities, noted procalcitonin; pulmonary input; noted and appreciated (3) HTN (hypertension): Plan: Pressures acceptableno change (4) Vitamin D deficiency: Plan: Continue vitamin D supplemental therapy (5) Hypothyroidism: Plan: Continue thyroid replacement therapy (6) Hypercholesterolemia: Plan: Continue low-cholesterol diet and statin therapy (7) Coronary artery stenosis: Plan: Stable. Continue current medical management (8) Chronic obstructive pulmonary disease: Plan: Gold class D, pulmonary office note noted; pulmonary consultedappreciate comanagement; stop prednisone after 5 days total (9) Atrial flutter with rapid ventricular response: Plan: At present rate controlled and appears sinus (10) Pneumonia: Plan: Treat as HAP for now; as above, sputum culture; added chest vest yesterday Plan Microcytic anemiaferritin in a.m.; likely chronic disease but added empiric PPI Admission and Anticipated Discharge Date Admission Date: June 23, 2022 Subjective Follow-up of shortness of breathongoing hypoxia, no different Physical Exam Physical Exam: Constitutional and general: No acute distress, looks biologic age Head and face: No puffiness, atraumatic Eyes: No scleral icterus, extraocular movements normal Neck: Supple, no JVD Musculoskeletal: No acute joint swelling, no bony abnormalities Skin/dermatologic/integument: No rash, no purpura Hematologic and lymphatic: pallor +, no petechia Gastrointestinal/abdomen: Nondistended, soft, nonacute Neurologic: Cranial nerves intact, nonfocal Psychiatry: Awake, alert, pleasant, communicative Cardiovascular: Heart rhythm regular, no rub, no murmur, no gallop Respiratory: Chest movements equal, no use of accessory muscles, decreased breath sounds Extremities: No edema, no cyanosis Results & Data Results & Data ([facility]) Vital Signs (Past 12 Hours) Vital Signs Temp Pulse Resp BP Pulse Ox O2 Del Method O2 Flow Rate 07/06/22 11:00 36.9 C 69 18 114/71 96 07/06/22 08:12 36.8 C 69 18 110/69 97 07/06/22 04:16 36.7 C 83 18 104/66 94 High Flow Nasal Cannula 8 Laboratory Results Laboratory Results - last 24 hr 07/06/22 07/06/22 06:28 06:28 WBC 13.91 H RBC 4.63 Hgb 11.0 L Hct 35.3 L MCV 76.2 L MCH 23.8 L MCHC 31.2 L RDW Std Deviation 44.5 RDW Coeff of Chloe 16.4 H Plt Count 291 MPV 10.0 Immature Gran % (Auto) 1.3 Neut % (Auto) 75.2 Lymph % (Auto) 14.0 [place] % (Auto) 9.3 Eos % (Auto) 0.1 Baso % (Auto) 0.1 Neut # (Auto) 10.46 H Lymph # (Auto) 1.95 [place] # (Auto) 1.29 H Eos # (Auto) 0.02 Baso # (Auto) 0.01 Immature Gran # (Auto) 0.18 H Sodium 138 Potassium 4.0 Chloride 97 L Carbon Dioxide 38 H Anion Gap 3 BUN 56 H Creatinine 1.35 Est Cr Clr Drug Dosing 39.4 Est GFR ( Amer) 55.5 Est GFR (Non-Af Amer) 47.9 Fasting Glucose 96 Calcium 8.4 L Phosphorus 2.6 Magnesium 2.1 Total Bilirubin 0.5 AST 20 ALT 22 Alkaline Phosphatase 41 Total Protein 5.3 L Albumin 2.5 L Globulin 2.8 Albumin/Globulin Ratio 0.9 PG Care Time/CCT Total # of Minutes Spent Total Time Spent with Patient: Total time spent is greater than 50% in coordination of care (as documented) at patient's floor/unit and/or counseling patient: Coding Level of Care Code 77947 Subseq Hosp Care Lvl 2 Diagnoses Acute on chronic systolic heart failure I50.23 Acute on chronic respiratory failure with hypoxia and hypercapnia J96.21; J96.22 HTN (hypertension) I10 Vitamin D deficiency E55.9 Hypothyroidism E03.9 Hypercholesterolemia E78.00 Coronary artery stenosis I25.10 Chronic obstructive pulmonary disease J44.1 COPD type: COPD with acute exacerbation Atrial flutter with rapid ventricular response I48.92 Pneumonia J18.9 (1) Chronic obstructive pulmonary disease COPD type: COPD with acute exacerbation Qualified Code(s): J44.1 - Chronic obstructive pulmonary disease with (acute) exacerbation
[2022-07-06] MEDS ORDERED: COUGH DROP (SUGAR FREE) LOZ 24 LOZ/1 BOX BUCCAL ONE (16:44)
[2022-07-06] MEDS ORDERED: BUDESONIDE 0.5 MG/2 ML VIAL (PULMICORT) NEB SCH (19:00)
[2022-07-06] MEDS ORDERED: SODIUM CHLOR 7% 4 ML NEB NEB SCH (19:00)
[2022-07-06] MEDS: FORMOTEROL 20 MCG/2 ML VIAL INH SCH (19:26)
[2022-07-06] MEDS: TAMSULOSIN HCL 0.4 MG CAP PO SCH (19:50)
[2022-07-07] MEDS: PIPERACILLIN/TAZOBACTAM 3.375 GM in DEXTROSE 5% 100 ML IV SCH ×4 (00:08→23:44)
[2022-07-07] MEDS: LEVOTHYROXINE SODIUM 150 MCG TABLET PO SCH (05:28)
[2022-07-07 05:58] LABS: Basophils # (auto) 0.01 K/uL (0-0.2); Basophils % (auto) 0.1 %; Eosinophils # (auto) 0.01 K/uL (0-0.50); Eosinophils % (auto) 0.1 %; Hematocrit (blood only) 35.3 % (40.1-51.0); Hemoglobin 10.6 g/dl (14.0-18.0); Immature Granulocytes # (auto) 0.12 K/uL (0.00-0.02); Immature Granulocytes % (auto) 0.9 %; Lymphocytes # (auto) 1.54 K/uL (1.2-3.4); Lymphocytes % (auto) 11.9 %; Mean Corpuscular Hemoglobin 23.3 pg (25.0-34.0); Mean Corpuscular Volume 77.8 fL (80.0-100.0); Mean Platelet Volume 9.9 fL (9.4-12.4); Monocytes % (auto) 6.9 %; Neutrophils % (auto) 80.1 %; Platelet Count 267 K/uL (130-400); RDW Coefficient of Variation 16.4 % (11.5-14.5); RDW Standard Deviation 45.9 fL (36.4-46.3); Red Blood Count 4.54 M/uL (4.63-6.08); White Blood Count 12.98 K/ul (4.8-10.8)
[2022-07-07 06:24] LABS: Albumin Globulin Ratio 0.9 (0.9-2); Albumin Level 2.4 gm/dl (3.4-5.0); Bilirubin,Total 0.5 mg/dl (0.2-1.0); Calcium 8.2 mg/dl (8.5-10.1); Creatinine Clr Calc Pharmacy 32.6 ml/min; Est GFR (African American) 44.2 ml/min; Est GFR (Non-African American) 38.1 ml/min; Globulin 2.7 gm/dl (2.5-4.0); Phosphorus 3.3 mg/dl (2.5-4.9); Potassium 3.8 mmol/L (3.5-5.1); Total Protein 5.1 gm/dl (6.0-8.3)
[2022-07-07 06:59] LABS: Ferritin 190.4 ng/ml (8-388)
[2022-07-07] MEDS: FORMOTEROL 20 MCG/2 ML VIAL INH SCH ×2 (06:59→19:13)
[2022-07-07] MEDS: VALSARTAN/SACUBITRIL 26/24MG TAB PO SCH (08:14)
[2022-07-07] MEDS: PANTOprazole 40 MG TAB PO SCH (08:14)
[2022-07-07] MEDS: FLUTICASONE/VILANTEROL 100/25MCG 14 PUFFS/INHALER INH SCH (08:14)
[2022-07-07] MEDS: ASPIRIN 81 MG ECTAB PO SCH (08:14)
[2022-07-07] MEDS: SIMVASTATIN 20 MG TAB PO SCH (08:14)
[2022-07-07] MEDS: METOPROLOL SUCC 50MG EXT REL TAB PO SCH (08:14)
[2022-07-07] MEDS: FINASTERIDE 5 MG TAB PO SCH (08:14)
[2022-07-07] MEDS: EZETIMIBE 10 MG TABLET PO SCH (08:14)
[2022-07-07] MEDS: predniSONE 20 MG TAB PO SCH (08:14)
[2022-07-07] MEDS: FUROSEMIDE 40 MG TAB PO SCH (08:14)
[2022-07-07] MEDS: AMIODARONE 200 MG TAB PO SCH (08:14)
[2022-07-07] MEDS: UMECLIDINIUM BROMIDE 62.5MCG/BLISTER 7 PUFFS/INHALER INH SCH (08:14)
[2022-07-07] MEDS: POLYETHYLENE (MIRALAX) 17 GM PACK PO SCH (08:15)
[2022-07-07] MEDS: DOXYCYCLINE HYCLATE 100 MG in DEXTROSE 5% 100 ML IV SCH ×2 (08:18→20:47)
--- NOTE | 2022-07-07 14:26 | Hospitalist Progress Note ---
Date of Service July 07, 2022 Assessment & Plan (1) Acute on chronic systolic heart failure: Plan: Suspected on admission, at present seems well compensated; noted creatinine and BP; Observe today; continue current Entresto and Lasix-reassess in a.m. (2) Acute on chronic respiratory failure with hypoxia and hypercapnia: Plan: Noted nodular opacities, Continue antibiotics, pulmonary input noted and comanagement appreciated, (3) HTN (hypertension): Plan: If at all pressures on low side; no change in current GDMT todayobserve (4) Vitamin D deficiency: Plan: Continue vitamin D supplemental therapy (5) Hypothyroidism: Plan: Continue thyroid replacement therapy (6) Hypercholesterolemia: Plan: Continue low-cholesterol diet and statin therapy (7) Coronary artery stenosis: Plan: Stable. Continue current medical management (8) Chronic obstructive pulmonary disease: Plan: Gold class D, pulmonary office note noted; pulmonary consultedappreciate comanagement; stop prednisone -been on steroids since the ; pulmonary might alter and if so will defer (9) Atrial flutter with rapid ventricular response: Plan: At present rate controlled and appears sinus (10) Pneumonia: Plan: Treat as HAP for now; as above, sputum culture; Continue pulmonary toilet Plan Microcytic anemiaferritin normal; likely chronic disease As noted, observe blood pressure, observe creatinine; consider acetazolamide at some point Mobilize Admission and Anticipated Discharge Date Admission Date: June 23, 2022 Subjective Follow-up of shortness of breathfeels more or less the same; continuing high oxygen requirement Physical Exam Physical Exam: Constitutional and general: No acute distress, looks biologic age Head and face: No puffiness, atraumatic Eyes: No scleral icterus, extraocular movements normal Neck: Supple, no JVD Musculoskeletal: No acute joint swelling, no bony abnormalities Skin/dermatologic/integument: No rash, no purpura Hematologic and lymphatic: pallor +, no petechia Gastrointestinal/abdomen: Nondistended, soft, nonacute Neurologic: Cranial nerves intact, nonfocal Psychiatry: Awake, alert, pleasant, communicative Cardiovascular: Heart rhythm regular, no rub, no murmur, no gallop Respiratory: Chest movements equal, no use of accessory muscles, decreased breath sounds Extremities: No edema, no cyanosis Results & Data Results & Data ([facility]) Vital Signs (Past 12 Hours) Vital Signs Temp Pulse Pulse Resp BP Pulse Ox O2 Del Method 07/07/22 11:23 36.9 C 57 L 18 90/53 L 94 Nasal Cannula 07/07/22 07:59 36.5 C 79 19 95/54 L 92 Nasal Cannula 07/07/22 07:51 Nasal Cannula 07/07/22 07:00 70 16 92 Nasal Cannula 07/07/22 03:01 36.6 C 69 20 97/61 L 95 Nasal Cannula O2 Flow Rate 07/07/22 11:23 8 07/07/22 07:59 7 07/07/22 07:51 8 07/07/22 07:00 7 07/07/22 03:01 8 Laboratory Results Laboratory Results - last 24 hr 07/07/22 07/07/22 05:40 05:40 WBC 12.98 H RBC 4.54 L Hgb 10.6 L Hct 35.3 L MCV 77.8 L MCH 23.3 L MCHC 30.0 L RDW Std Deviation 45.9 RDW Coeff of Chloe 16.4 H Plt Count 267 MPV 9.9 Immature Gran % (Auto) 0.9 Neut % (Auto) 80.1 Lymph % (Auto) 11.9 [place] % (Auto) 6.9 Eos % (Auto) 0.1 Baso % (Auto) 0.1 Neut # (Auto) 10.40 H Lymph # (Auto) 1.54 [place] # (Auto) 0.90 H Eos # (Auto) 0.01 Baso # (Auto) 0.01 Immature Gran # (Auto) 0.12 H Sodium 136 Potassium 3.8 Chloride 96 L Carbon Dioxide 38 H Anion Gap 2 L BUN 58 H Creatinine 1.63 H Est Cr Clr Drug Dosing 32.6 Est GFR ( Amer) 44.2 Est GFR (Non-Af Amer) 38.1 Fasting Glucose 109 H Calcium 8.2 L Phosphorus 3.3 Magnesium 2.0 Ferritin 190.4 Total Bilirubin 0.5 AST 18 ALT 22 Alkaline Phosphatase 42 Total Protein 5.1 L Albumin 2.4 L Globulin 2.7 Albumin/Globulin Ratio 0.9 PG Care Time/CCT Total # of Minutes Spent Total Time Spent with Patient: Total time spent is greater than 50% in coordination of care (as documented) at patient's floor/unit and/or counseling patient: Coding Level of Care Code 24389 Subseq Hosp Care Lvl 2 Diagnoses Acute on chronic systolic heart failure I50.23 Acute on chronic respiratory failure with hypoxia and hypercapnia J96.21; J96.22 HTN (hypertension) I10 Vitamin D deficiency E55.9 Hypothyroidism E03.9 Hypercholesterolemia E78.00 Coronary artery stenosis I25.10 Chronic obstructive pulmonary disease J44.1 COPD type: COPD with acute exacerbation Atrial flutter with rapid ventricular response I48.92 Pneumonia J18.9 (1) Chronic obstructive pulmonary disease COPD type: COPD with acute exacerbation Qualified Code(s): J44.1 - Chronic obstructive pulmonary disease with (acute) exacerbation
[2022-07-07] MEDS: ENOXAPARIN INJ 40 MG/0.4 ML SYR SQ SCH (15:15)
[2022-07-07] MEDS ORDERED: SODIUM CHLORIDE 0.9% 1000ML 250 ML IV ONE (16:37)
[2022-07-07] MEDS: TAMSULOSIN HCL 0.4 MG CAP PO SCH (20:47)
[2022-07-08] MEDS: LEVOTHYROXINE SODIUM 150 MCG TABLET PO SCH (05:31)
[2022-07-08 06:54] LABS: Basophils # (auto) 0.01 K/uL (0-0.2); Basophils % (auto) 0.1 %; Eosinophils # (auto) 0.02 K/uL (0-0.50); Eosinophils % (auto) 0.2 %; Hematocrit (blood only) 35.9 % (40.1-51.0); Hemoglobin 10.9 g/dl (14.0-18.0); Immature Granulocytes # (auto) 0.13 K/uL (0.00-0.02); Lymphocytes # (auto) 1.62 K/uL (1.2-3.4); Lymphocytes % (auto) 12.2 %; Mean Corpuscular Hemoglobin 23.7 pg (25.0-34.0); Mean Corpuscular Hgb Conc 30.4 g/dL (32.0-36.0); Mean Platelet Volume 10.5 fL (9.4-12.4); Monocytes # (auto) 0.83 K/uL (0.24-0.82); Monocytes % (auto) 6.3 %; Neutrophils # (auto) 10.65 K/uL (1.4-6.5); Neutrophils % (auto) 80.2 %; Platelet Count 293 K/uL (130-400); RDW Coefficient of Variation 16.8 % (11.5-14.5); RDW Standard Deviation 46.2 fL (36.4-46.3); White Blood Count 13.26 K/ul (4.8-10.8)
[2022-07-08 07:21] LABS: Albumin Globulin Ratio 0.9 (0.9-2); Albumin Level 2.4 gm/dl (3.4-5.0); Bilirubin,Total 0.5 mg/dl (0.2-1.0); Calcium 8.2 mg/dl (8.5-10.1); Creatinine Clr Calc Pharmacy 30.9 ml/min; Est GFR (African American) 41.4 ml/min; Est GFR (Non-African American) 35.7 ml/min; Globulin 2.8 gm/dl (2.5-4.0); Phosphorus 3.3 mg/dl (2.5-4.9); Potassium 3.7 mmol/L (3.5-5.1); Total Protein 5.2 gm/dl (6.0-8.3)
[2022-07-08] MEDS: FORMOTEROL 20 MCG/2 ML VIAL INH SCH ×2 (07:22→19:52)
[2022-07-08] MEDS: METOPROLOL SUCC 25MG EXT REL TAB PO SCH (08:50)
[2022-07-08] MEDS: PIPERACILLIN/TAZOBACTAM 3.375 GM in DEXTROSE 5% 100 ML IV SCH ×2 (08:50→16:13)
[2022-07-08] MEDS: ASPIRIN 81 MG ECTAB PO SCH (08:50)
[2022-07-08] MEDS: SIMVASTATIN 20 MG TAB PO SCH (08:50)
[2022-07-08] MEDS: EZETIMIBE 10 MG TABLET PO SCH (08:50)
[2022-07-08] MEDS: FINASTERIDE 5 MG TAB PO SCH (08:51)
[2022-07-08] MEDS: AMIODARONE 200 MG TAB PO SCH (08:51)
[2022-07-08] MEDS: FLUTICASONE/VILANTEROL 100/25MCG 14 PUFFS/INHALER INH SCH (08:52)
[2022-07-08] MEDS: UMECLIDINIUM BROMIDE 62.5MCG/BLISTER 7 PUFFS/INHALER INH SCH (08:52)
[2022-07-08] MEDS: POLYETHYLENE (MIRALAX) 17 GM PACK PO SCH (08:52)
--- NOTE | 2022-07-08 10:52 | Pulmonology Progress Note ---
Date of Service July 08, 2022 Assessment & Plan (1) Pneumonia: (2) Acute on chronic respiratory failure with hypoxia and hypercapnia: (3) Chronic obstructive pulmonary disease: COPD type: COPD with acute exacerbation Qualified Code(s): J44.1 - Chronic obstructive pulmonary disease with (acute) exacerbation (4) Shortness of breath: (5) Goals of care, counseling/discussion: Plan 82-year-old male with a past medical history of nonischemic cardiomyopathy, advanced COPD, chronic hypoxemic respiratory failure and paroxysmal atrial flutter presenting to the hospital due to increasing shortness of breath. He was found to have multifocal infiltrates on CT chest and is currently being treated for pneumonia. Continue current antibiotic regimen. Continue nebulized Brovana and budesonide. Continue Incruse Ellipta. This should be his regimen upon hospital discharge. Continue hypertonic saline and vest therapy 4 times daily to promote mucociliary clearance. Recommend aspiration precautions. 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 Recommend discontinuing prednisone therapy after 5 days. Patient with evidence of hypercapnic respiratory failure and ABG and compensated metabolic alkalosis. Continue BiPAP as tolerated. Overall his prognosis is very poor due to severe deconditioning, advanced COPD and cardiomyopathy. Palliative care consult placed. Wean oxygen to maintain saturations of 88 to 92%. He is currently a DNR/DNI. Thank you for the consultation. Please call with questions. Pulmonary will sign off. Admission and Anticipated Discharge Date Admission Date: June 23, 2022 Subjective Patient seen and examined. Shortness of breath stable. He becomes short of breath with minimal exertion. Currently laying in bed. Denies chest pain. Only able to tolerate BiPAP for about 2 hours last night. Review of Systems Review of Systems: All systems reviewed & are unremarkable except as noted in HPI & below Physical Exam Constitutional: Frail and elderly appearing male in no apparent distress Eyes: PERRL, conjunctivae normal, anicteric sclerae Respiratory: Diminished lung sounds bilaterally. Prolonged phase of exhalation. No wheezing. Cardiovascular: No obvious murmur. 2+ edema in the lower extremities. Gastrointestinal (Abdomen): normal bowel sounds, soft, nontender, no hepatosplenomegaly Musculoskeletal: no cyanosis or clubbing, extremities motor strength 5/5 Neurologic: PERRL, EOMI, accommodation nl, no face palsy, no dysarthria Psychiatric: A+Ox3, euthymic affect Results & Data Results & Data ([facility]) Vital Signs (Past 12 Hours) Vital Signs Temp Pulse Pulse Resp BP Pulse Ox O2 Del Method 07/08/22 06:12 60 07/08/22 07:39 36.3 C L 64 20 103/56 L 94 High Flow Nasal Cannula 07/08/22 07:22 62 18 96 Nasal Cannula 07/08/22 03:49 36.5 C 72 20 88/54 L 90 Nasal Cannula 07/08/22 00:00 60 07/07/22 23:02 36.6 C 68 20 89/48 L 92 CPAP O2 Flow Rate 07/08/22 06:12 07/08/22 07:39 5 07/08/22 07:22 6 07/08/22 03:49 6.0 07/08/22 00:00 07/07/22 23:02 PG Care Time/CCT Total # of Minutes Spent Total Time Spent with Patient: Total time spent is greater than 50% in coordination of care (as documented) at patient's floor/unit and/or counseling patient: Coding Level of Care Code 94544 Subseq Hosp Care Lvl 2 Diagnoses Pneumonia J18.9 Acute on chronic respiratory failure with hypoxia and hypercapnia J96.21; J96.22 Chronic obstructive pulmonary disease J44.1 COPD type: COPD with acute exacerbation Shortness of breath R06.02 Goals of care, counseling/discussion Z71.89
[2022-07-08] MEDS: DOXYCYCLINE HYCLATE 100 MG in DEXTROSE 5% 100 ML IV SCH ×2 (12:23→20:27)
--- NOTE | 2022-07-08 15:44 | Hospitalist Progress Note ---
Date of Service July 08, 2022 Assessment & Plan (1) Acute on chronic systolic heart failure: Plan: At present volume status appears better; if at all could be overdiuresisLasix on hold; also, low blood pressure, GDMT essentially on hold except metoprolol succinate; prognosis appears poor; palliative consult pending. (2) Acute on chronic respiratory failure with hypoxia and hypercapnia: Plan: Noted nodular opacities, Continue antibiotics, pulmonary input noted and comanagement appreciated,; still 7 to 8 L oxygen need; did not tolerate NIV as ordered; overall prognosis poor (3) Vitamin D deficiency: Plan: Continue vitamin D supplemental therapy (4) Hypothyroidism: Plan: Continue thyroid replacement therapy (5) Hypercholesterolemia: Plan: Continue low-cholesterol diet and statin therapy (6) Coronary artery stenosis: Plan: Stable. Continue current medical management (7) Chronic obstructive pulmonary disease: Plan: Gold class D, pulmonary comanagement appreciated (8) Atrial flutter with rapid ventricular response: Plan: At present rate controlled and appears sinus (9) Pneumonia: Plan: Being treated as HAP; continue aggressive pulmonary toilet (10) Acute kidney failure: Plan: Difficult to pin down exact etiology but likely hemodynamic mediated, could be overdiuresis; Entresto and Lasix on holdfollow Plan Microcytic anemiaferritin normal; likely chronic disease Admission and Anticipated Discharge Date Admission Date: June 23, 2022 Subjective Follow-up presentation of shortness of breathfeels no different Physical Exam Physical Exam: Constitutional and general: No acute distress, looks biologic age Head and face: No puffiness, atraumatic Eyes: No scleral icterus, extraocular movements normal Neck: Supple, no JVD Musculoskeletal: No acute joint swelling, no bony abnormalities Skin/dermatologic/integument: No rash, no purpura Hematologic and lymphatic: pallor +, no petechia Gastrointestinal/abdomen: Nondistended, soft, nonacute Neurologic: Cranial nerves intact, nonfocal Psychiatry: Awake, alert, pleasant, communicative Cardiovascular: Heart rhythm regular, no rub, no murmur, no gallop Respiratory: Chest movements equal, no use of accessory muscles, no adventitious sounds Extremities: No edema, no cyanosis Results & Data Results & Data ([facility]) Vital Signs (Past 12 Hours) Vital Signs Temp Pulse Pulse Resp BP Pulse Ox O2 Del Method 07/08/22 15:30 36.6 C 66 20 96/49 L 91 High Flow Nasal Cannula 07/08/22 08:40 Nasal Cannula 07/08/22 11:46 36.5 C 67 20 91/50 L 92 High Flow Nasal Cannula 07/08/22 06:12 60 07/08/22 07:39 36.3 C L 64 20 103/56 L 94 High Flow Nasal Cannula 07/08/22 07:22 62 18 96 Nasal Cannula 07/08/22 03:49 36.5 C 72 20 88/54 L 90 Nasal Cannula O2 Flow Rate 07/08/22 15:30 7 07/08/22 08:40 4 07/08/22 11:46 7 07/08/22 06:12 07/08/22 07:39 5 07/08/22 07:22 6 07/08/22 03:49 6.0 Laboratory Results Laboratory Results - last 24 hr 07/08/22 07/08/22 06:03 06:03 WBC 13.26 H RBC 4.60 L Hgb 10.9 L Hct 35.9 L MCV 78.0 L MCH 23.7 L MCHC 30.4 L RDW Std Deviation 46.2 RDW Coeff of Chloe 16.8 H Plt Count 293 MPV 10.5 Immature Gran % (Auto) 1.0 Neut % (Auto) 80.2 Lymph % (Auto) 12.2 [place] % (Auto) 6.3 Eos % (Auto) 0.2 Baso % (Auto) 0.1 Neut # (Auto) 10.65 H Lymph # (Auto) 1.62 [place] # (Auto) 0.83 H Eos # (Auto) 0.02 Baso # (Auto) 0.01 Immature Gran # (Auto) 0.13 H Sodium 137 Potassium 3.7 Chloride 97 L Carbon Dioxide 38 H Anion Gap 2 L BUN 64 H Creatinine 1.72 H Est Cr Clr Drug Dosing 30.9 Est GFR ( Amer) 41.4 Est GFR (Non-Af Amer) 35.7 Fasting Glucose 122 H Calcium 8.2 L Phosphorus 3.3 Magnesium 2.0 Total Bilirubin 0.5 AST 16 ALT 22 Alkaline Phosphatase 39 Total Protein 5.2 L Albumin 2.4 L Globulin 2.8 Albumin/Globulin Ratio 0.9 PG Care Time/CCT Total # of Minutes Spent Total Time Spent with Patient: Total time spent is greater than 50% in coordination of care (as documented) at patient's floor/unit and/or counseling patient: Coding Level of Care Code 71646 Subseq Hosp Care Lvl 2 Diagnoses Acute on chronic systolic heart failure I50.23 Acute on chronic respiratory failure with hypoxia and hypercapnia J96.21; J96.22 Vitamin D deficiency E55.9 Hypothyroidism E03.9 Hypercholesterolemia E78.00 Coronary artery stenosis I25.10 Chronic obstructive pulmonary disease J44.1 COPD type: COPD with acute exacerbation Atrial flutter with rapid ventricular response I48.92 Pneumonia J18.9 Acute kidney failure N17.9 (1) Chronic obstructive pulmonary disease COPD type: COPD with acute exacerbation Qualified Code(s): J44.1 - Chronic obstructive pulmonary disease with (acute) exacerbation
[2022-07-08] MEDS: ENOXAPARIN INJ 40 MG/0.4 ML SYR SQ SCH (16:13)
--- NOTE | 2022-07-08 16:25 | Palliative Care Consultation ---
Date of Consultation July 08, 2022 Assessment & Plan (1) Dyspnea: Denies difficulty at rest. Does have dyspnea with transferring from bed to chair. Resolves with rest and "cranking up the oxygen". (2) Palliative care encounter: I talked with Mr. Trujillo about his illness and what he would like his care to look like moving forward. He was quite parveen about the fact that he would like to go home and would not want to return to the hospital. I asked him, if that meant that he would home, was that what he wanted and told me that it was. He deferred further discussion about plan of care to his daughter, Daysi. I spoke with Daysi who is planning to care for him at her home with the help of her boyfriend. I reviewed my conversation with Rg and she told me that she was not surprised. She added that she does not want to lose her father but respects his decision. We talked about support available to help her care for him at home and discussed the differences between home care and hospice. We talked about the hospice benefit and care provided. Given Rg's desire to not return to the hospital and be comfortable at home until his , hospice would provide the best support to help them meet that goal. Daysi asked about PT, which would not be included in hospice care. We talked about limitations to PT with his breathing and she asked that I speak with him about what he wanted. I talked to Rg and he told me that he did not think it would help and wasn't really interested in PT. I told him about plan for home with hospice care and he was agreeable. Notified case management. (3) Acute on chronic respiratory failure: (4) Acute on chronic systolic heart failure: (5) Chronic obstructive pulmonary disease: COPD type: COPD with acute exacerbation Qualified Code(s): J44.1 - Chronic obstructive pulmonary disease with (acute) exacerbation History of Present Illness Reason for Consultation: goals of care Requesting Physician: Dr. Odonnell Attending Physician: Nidhi Pfeiffer MD History of Present Illness 82 gentleman with history of CAD, ischemic cardiomyopathy and advanced COPD. He has acute on chronic hypoxic respiratory failure, requiring high flow oxygen, currently at a rate of 7 lpm. He had a trial of NIV but did not tolerate it. He has been living alone in his own home but is not able to manage at home on his own. He is planning to live with his daughter, Daysi, and we have been consulted assist with goals of care. Allergies Allergy/AdvReac Type Severity Reaction Status Date / Time fluticasone furoate AdvReac cannot void Verified 06/23/22 15:26 [From Trelegy Ellipta] umeclidinium AdvReac cannot void Verified 06/23/22 15:26 [From Trelegy Ellipta] vilanterol AdvReac cannot void Verified 06/23/22 15:26 [From [facility]] Home Medications Medication Instructions Recorded Confirmed Type aspirin 81 mg tablet,delayed 81 mg PO QAM 06/22/19 06/23/22 History release (Adult Aspirin Regimen) guaifenesin 600 mg tablet, 600 mg PO Q12H 08/01/20 06/23/22 History extended release 12 hr (Mucinex) nitroglycerin 0.4 mg sublingual 0.4 mg sublingual Q5M PRN Chest 06/20/21 06/23/22 History tablet Pain tamsulosin 0.4 mg capsule 0.4 mg PO HS #90 caps 07/13/21 06/23/22 Rx albuterol sulfate 90 mcg/actuation 2 puff inhalation QID PRN 07/14/21 06/23/22 Rx aerosol inhaler (Ventolin HFA) shortness of breath #18 grams amiodarone 200 mg tablet 200 mg PO QAM #30 tabs 07/31/21 06/23/22 Rx levalbuterol HCl 1.25 mg/3 mL See Rx Instructions .Route 12/21/21 06/23/22 Rx solution for nebulization .COMPLEX #300 mL levothyroxine 150 mcg tablet 150 mcg PO QAM #90 tabs 03/05/22 06/23/22 Rx metoprolol succinate 50 mg 50 mg PO QAM #90 tabs 03/19/22 06/23/22 Rx tablet,extended release 24 hr sacubitril 24 mg-valsartan 26 mg 1 tab PO BID #60 tabs 04/02/22 06/23/22 Rx tablet (Entresto) budesonide-formoterol HFA 160 2 inh inhalation Q12H 04/04/22 06/23/22 History mcg-4.5 mcg/actuation aerosol inhaler (Symbicort) ezetimibe 10 mg tablet 10 mg PO QAM 04/29/22 06/23/22 History finasteride 5 mg tablet 5 mg PO QAM 04/29/22 06/23/22 History simvastatin 40 mg tablet 40 mg PO QPM 04/29/22 06/23/22 History furosemide 20 mg tablet (Lasix) 20 mg PO DAILY #30 tabs 05/03/22 06/23/22 Rx umeclidinium 62.5 mcg/actuation 1 inh inhalation QAM #30 ea 05/26/22 06/23/22 Rx blister powder for inhalation (Incruse Ellipta) Patient History Medical History Acute on chronic respiratory failure with hypoxia and hypercapnia Chronic dyspnea Chronic hypoxemic respiratory failure Chronic obstructive pulmonary disease Cough Decreased cardiac ejection fraction Dyspnea Goals of care, counseling/discussion History of degenerative joint disease HTN (hypertension) Hypercholesterolemia Hypothyroidism Ischemic cardiomyopathy Past myocardial infarction Solitary pulmonary nodule Urinary retention Surgical History History of intravascular stent placement Family History Mother Myocardial infarction Father Acute pneumonitis Asthma Sister Asthma Brother Myocardial infarction Denies family history of Ovarian cancer Prostate cancer Breast cancer Colorectal cancer Social History Smoking Status: Former smoker Tobacco Type: Cigarettes Age Started Using Tobacco: 10; packs per day: 2; Years Smoked: 50; Smoking End Date: 03/2001; Number of Years Since Quit: 21; Second Hand Exposure: No; Hx Alcohol Use: No Hx Substance Use: No Preferred Language: Irish Communication Ability: Effective Visual Impairment: Limited Hearing Ability: Normal Medical Imaging Tech Required: No Beliefs That Will Affect Care: None marital status: / Current Living Situation: Alone current occupational status: retired How many Children do You have: 1 Feels Safe at Home: Yes Childhood Exposure to Second-Hand Smoke: Yes caffeine: Yes during the past year weight has: remained stable Dental Care, Regularly: No Physical Activity Frequency: Does not Exercise Seatbelt Use: never Sunscreen Use: No Assistive Devices: Oxygen - Continuous and Walker Review of Systems Review of Systems: ESAS Pain 0/3 Dyspnea 2/3 with minimal exertion Nausea 0/3 Fatigue 2/3 Anxiety 0/3 Drowsiness 0/3 PPS 40% Physical Exam Constitutional: no acute distress Eyes: right eye erythema Respiratory: normal respiratory effort; no labored breathing Gastrointestinal (Abdomen): Inspection/Auscultation: abdomen normal to inspection Neurologic: awake; not confused Results & Data ([facility]) Vital Signs (Past 12 Hours) Vital Signs Temp Pulse Pulse Resp BP Pulse Ox O2 Del Method 07/08/22 15:30 97.9 F 66 20 96/49 L 91 High Flow Nasal Cannula 07/08/22 08:40 Nasal Cannula 07/08/22 11:46 97.7 F 67 20 91/50 L 92 High Flow Nasal Cannula 07/08/22 06:12 60 07/08/22 07:39 97.3 F L 64 20 103/56 L 94 High Flow Nasal Cannula 07/08/22 07:22 62 18 96 Nasal Cannula O2 Flow Rate 07/08/22 15:30 7 07/08/22 08:40 4 07/08/22 11:46 7 07/08/22 06:12 07/08/22 07:39 5 07/08/22 07:22 6 PG Care Time/CCT Total # of Minutes Spent Total Time Spent: 58 Total Time Spent with Patient: Total time spent is greater than 50% in coordination of care (as documented) at patient's floor/unit and/or counseling patient: goals of care, hospice, patient and family education and support Coding Level of Care Code 07976 Initial Inpt Care Lvl 2 Diagnoses Dyspnea R06.00 Palliative care encounter Z51.5 Acute on chronic respiratory failure J96.20 Acute on chronic systolic heart failure I50.23 Chronic obstructive pulmonary disease J44.1 COPD type: COPD with acute exacerbation
[2022-07-08] MEDS: TAMSULOSIN HCL 0.4 MG CAP PO SCH (20:29)
[2022-07-09] MEDS: PIPERACILLIN/TAZOBACTAM 3.375 GM in DEXTROSE 5% 100 ML IV SCH ×2 (01:21→08:15)
[2022-07-09] MEDS: LEVOTHYROXINE SODIUM 150 MCG TABLET PO SCH (06:06)
[2022-07-09] MEDS: FORMOTEROL 20 MCG/2 ML VIAL INH SCH (07:11)
[2022-07-09 07:19] LABS: Basophils # (auto) 0.01 K/uL (0-0.2); Basophils % (auto) 0.1 %; Eosinophils # (auto) 0.44 K/uL (0-0.50); Eosinophils % (auto) 3.7 %; Hematocrit (blood only) 31.9 % (40.1-51.0); Hemoglobin 10.2 g/dl (14.0-18.0); Immature Granulocytes # (auto) 0.11 K/uL (0.00-0.02); Immature Granulocytes % (auto) 0.9 %; Lymphocytes % (auto) 12.5 %; Mean Corpuscular Hemoglobin 24.5 pg (25.0-34.0); Mean Corpuscular Volume 76.5 fL (80.0-100.0); Mean Platelet Volume 10.4 fL (9.4-12.4); Monocytes # (auto) 1.14 K/uL (0.24-0.82); Monocytes % (auto) 9.5 %; Neutrophils # (auto) 8.77 K/uL (1.4-6.5); Neutrophils % (auto) 73.3 %; Platelet Count 259 K/uL (130-400); RDW Coefficient of Variation 17.2 % (11.5-14.5); RDW Standard Deviation 46.1 fL (36.4-46.3); Red Blood Count 4.17 M/uL (4.63-6.08); White Blood Count 11.97 K/ul (4.8-10.8)
[2022-07-09 07:44] LABS: Albumin Level 2.3 gm/dl (3.4-5.0); Bilirubin,Total 0.5 mg/dl (0.2-1.0); Calcium 7.9 mg/dl (8.5-10.1); Creatinine Clr Calc Pharmacy 27.9 ml/min; Est GFR (African American) 36.5 ml/min; Est GFR (Non-African American) 31.5 ml/min; Globulin 2.4 gm/dl (2.5-4.0); Magnesium 1.9 mg/dl (1.7-2.4); Potassium 3.4 mmol/L (3.5-5.1); Total Protein 4.7 gm/dl (6.0-8.3)
[2022-07-09] MEDS: FINASTERIDE 5 MG TAB PO SCH (08:15)
[2022-07-09] MEDS: AMIODARONE 200 MG TAB PO SCH (08:15)
[2022-07-09] MEDS: UMECLIDINIUM BROMIDE 62.5MCG/BLISTER 7 PUFFS/INHALER INH SCH (08:15)
[2022-07-09] MEDS: EZETIMIBE 10 MG TABLET PO SCH (08:15)
[2022-07-09] MEDS: FLUTICASONE/VILANTEROL 100/25MCG 14 PUFFS/INHALER INH SCH (08:15)
[2022-07-09] MEDS: SIMVASTATIN 20 MG TAB PO SCH (08:15)
[2022-07-09] MEDS: METOPROLOL SUCC 25MG EXT REL TAB PO SCH (08:15)
[2022-07-09] MEDS: ASPIRIN 81 MG ECTAB PO SCH (08:16)
[2022-07-09] MEDS: POLYETHYLENE (MIRALAX) 17 GM PACK PO SCH (08:16)
[2022-07-09] MEDS ORDERED: POTASSIUM CHLORIDE 10 MEQ TABCR PO STA (09:39)
[2022-07-09] MEDS: DOXYCYCLINE HYCLATE 100 MG in DEXTROSE 5% 100 ML IV SCH (12:23)
--- NOTE | 2022-07-09 13:44 | Discharge Summary ---
Date of Service July 09, 2022 Admission HPI Per Admitting Provider Rg Trujillo is an 82-year-old male with a past medical history of CAD with history of PCI, systolic heart failure 2/2 ischemic cardiomyopathy, hypertension, emphysema, hypothyroidism, HLD, COPD, BPH with LUTS, a flutter with RVR, and chronic dyspnea who presented to the emergency department via EMS for 2 weeks of worsening shortness of breath. Is at increased swelling in his legs and increase his home Lasix at home for this without significant improvement. On ER assessment patient was dyspneic with tachypnea to the 30s and mild tachycardia, O2 sat of 79%. He does have a home requirement of 6 L nasal cannula. He was found to have scattered wheezes and rhonchi of the bilateral lung vo, EKG without evidence of acute ischemia. Chest x-ray showed asymmetric pulmonary edema and small bilateral pleural effusions, redemonstrated midshaft humeral fracture healing compared to prior. Last seen by pulmonary 05/03/2022. Was noted to have multifactorial chronic dyspnea and was started on 20 mg Lasix p.o. daily. No evidence of CKD. Was scheduled to have repeat echocardiogram as outpatient to follow EF after starting Entresto. Per ER: Increased WoB, worsened rhonchi w/ asymmetric edema --> covered for PNA. No leukocytosis. Hx COPD --> doxy/rocephin. Doing better on bipap & w/ neb. BNP is down from prior but remains elevated. - No chest pain, EKG similar to prior. Seen in ER w/ Daughter Verna: 'Cant breathe' real bad for last 3 week, seems to be worsened in the last week in particular. +swelling in the legs L usually more than the R. No chest pain, no chest pressure. Has been taking lasix at home for 3 weeks, doesn't think it has helped his breathing but does notice he peeds more when he is on it. No increased wheezing 'feels different than COPD.' Denies dietary indescretion/soup lately, but does drink a lot of soda Shingles 1 year ago. Has had thick discharge from R eye since, has not had it checked. Was told likely chronic 2/2 post-shingles. Wipes eye several times per day. Medical History: Reviewed Medications: Reviewed Surgical History: Reviewed Allergies: Reviewed. NKDA. Social History: Former smoker. Denies recent tobacco/etoh use. Code Status: DNR/DNI. No intubtation for declining respiratory status. Principal Diagnosis Acute on chronic hypoxic respiratory failure Discharge Exam Chronically ill Chestbilateral decreased breath sounds No overt JVD Pallor noted No significant clinical change compared to yesterday Discharge Data Allergies Allergy/AdvReac Type Severity Reaction Status Date / Time fluticasone furoate AdvReac cannot void Verified 06/23/22 15:26 [From Trelegy Ellipta] umeclidinium AdvReac cannot void Verified 06/23/22 15:26 [From Trelegy Ellipta] vilanterol AdvReac cannot void Verified 06/23/22 15:26 [From Trelegy Ellipta] Consultations 06/23/22 13:00 ED Decision to Admit Stat 06/23/22 14:21 Consult Cardiology Routine 07/06/22 11:47 Consult Pulmonology Routine 07/06/22 14:20 Consult Palliative Care Routine Ordered Studies 07/03/22 12:32 CT chest diagnostic wo con Urgent 07/05/22 14:45 Fluoro video [FL video swallow] Routine Hospital Course (1) Acute on chronic systolic heart failure: Continued rise in creatinine; hold Lasix -he understands course, wants to go home; GDMT on hold except for low-dose metoprolol succinate due to low blood pressure, rising creatinine (ARB on hold as part of Entresto) (2) Acute on chronic respiratory failure with hypoxia and hypercapnia: Multifactorial; being treated for pneumonia, complete treatment, continue aggressive bronchodilation for symptom relief; supportive oxygen, he declines NIV (3) Vitamin D deficiency: Continue vitamin D supplemental therapy (4) Hypothyroidism: Continue thyroid replacement therapy (5) Hypercholesterolemia: Continue low-cholesterol diet and statin therapy (6) Coronary artery stenosis: Stable. Continue current medical management (7) Chronic obstructive pulmonary disease: Gold class D, poor prognosis; continue bronchodilation with inhaled steroids and LAMA (8) Atrial flutter with rapid ventricular response: At present rate controlled and appears sinus (9) Pneumonia: Being treated as HAP; continue aggressive pulmonary toilet (10) Acute kidney failure: Progressive, could be CRS; Entresto and Lasix on hold; prognosis poor Plan Microcytic anemiaferritin normal; likely chronic disease Prognosis poor, he understands; he wants to go home with home hospice; palliative care input appreciated; family aware and in agreement Total Time Total Time Spent Total Time Spent (In Minutes): 40 Discharge Plan Discharge Items Patient Disposition: Hospice - Home Reason For Visit: HYPOXIC RESPIRATORY FAILURE, SUSPECT AoC CHFrEF Discharge Diagnosis: Acute on chronic hypoxic respiratory failure Activity: As commented below Activity Comment: As tolerated Non-emergency contact: Primary Care Provider Call non-emergency contact if: your symptoms worsen Follow-up/Referrals: Jerad Weems DO [Primary Care Provider] - Diet: Heart Healthy and Low Sodium (2gm) Addtl Attending Provider Instructions: Wear oxygen 7 to 10 L continuously to maintain saturation between 88 and 92%; Spend quality time with your family! Pending Studies at Discharge: No Stand-Alone Forms: My [facility] [employer] Medications and DC Order Prescriptions: New metoprolol succinate 25 mg Tablet Extended Release 24 Hr 25 mg PO QAM Qty: 30 0RF Rx Instructions: New dose of this medication formoterol fumarate [Perforomist] 20 mcg/2 mL Solution For Nebulization 20 mcg inhalation BIDR Qty: 120 1RF budesonide 0.25 mg/2 mL suspension for nebulization 0.25 mg inhalation BID Qty: 60 1RF cefdinir 300 mg capsule 300 mg PO DAILY 3 Days Qty: 3 0RF doxycycline hyclate 100 mg capsule 100 mg PO BID 3 Days Qty: 5 0RF Continued tamsulosin 0.4 mg capsule 0.4 mg PO HS Qty: 90 3RF albuterol sulfate [Ventolin HFA] 90 mcg/actuation HFA aerosol inhaler 2 puff INH QID PRN (Reason: shortness of breath) Qty: 18 3RF levalbuterol HCl 1.25 mg/3 mL solution for nebulization See Rx Instructions .ROUTE .COMPLEX Qty: 300 5RF Dose Instruction: USE 1 VIAL IN NEBULIZER 2 TO 3 TIMES DAILY NEEDED FOR SHORTNESS OR BREATH OR WHEEZING Rx Instructions: USE 1 VIAL IN NEBULIZER 2 TO 3 TIMES DAILY NEEDED FOR SHORTNESS OR BREATH OR WHEEZING levothyroxine 150 mcg tablet 150 mcg PO QAM Qty: 90 1RF Incruse Ellipta 62.5 mcg/actuation blister with device 1 inh inhalation QAM Qty: 30 3RF guaifenesin [Mucinex] 600 mg tablet extended release 12hr 600 mg PO Q12H aspirin [Adult Aspirin Regimen] 81 mg tablet,delayed release (DR/EC) 81 mg PO QAM amiodarone 200 mg tablet 200 mg PO QAM Qty: 30 11RF simvastatin 40 mg tablet 40 mg PO QPM ezetimibe 10 mg tablet 10 mg PO QAM finasteride 5 mg tablet 5 mg PO QAM nitroglycerin 0.4 mg Tablet, Sublingual 0.4 mg sublingual Q5M PRN (Reason: Chest Pain) Discontinued metoprolol succinate 50 mg tablet extended release 24 hr 50 mg PO QAM Qty: 90 3RF furosemide [Lasix] 20 mg tablet 20 mg PO DAILY Qty: 30 2RF Entresto 24-26 mg tablet 1 tab PO BID Qty: 60 11RF budesonide-formoterol [Symbicort] 160-4.5 mcg/actuation HFA aerosol inhaler 2 inh inhalation Q12H Rx Instructions: INHALE 2 PUFFS EVERY 12 HOURS. Discharge Orders: Discharge Order (Routine); Ordered 07/09/22 Ordered By: Nidhi Pfeiffer Admission Data Admit Date/Time: 06/23/22 13:01 Attending Provider: Nidhi Pfeiffer Admit Provider: Mateus Pickett Primary Care Provider: Jerad Weems Other Providers: Mateus Pickett ; Douglas Naylor ; Karl Mcclellan ; [facility] ; Thad Odonnell ; Marylou Harrison Coding Level of Care Code D/C DAY MANAGEMENT >30 MINS Diagnoses Acute on chronic systolic heart failure I50.23 Acute on chronic respiratory failure with hypoxia and hypercapnia J96.21; J96.22 Vitamin D deficiency E55.9 Hypothyroidism E03.9 Hypercholesterolemia E78.00 Coronary artery stenosis I25.10 Chronic obstructive pulmonary disease J44.1 COPD type: COPD with acute exacerbation Atrial flutter with rapid ventricular response I48.92 Pneumonia J18.9 Acute kidney failure N17.9
[2022-07-09] MEDS ORDERED: ENOXAPARIN INJ 30 MG/0.3 ML SYR SQ SCH (15:00)
== END 2022-07-09 16:17 | disposition hospice, home (50) | DRG 291 ==
LOC: ED 09:31 → EDINP 13:01 → SUATTDRO 13:01 → 1E 14:20 → 2S 06-24 21:34
DX: E78.5 Hyperlipidemia, unspecified; E87.3 Alkalosis; I24.8 Other forms of acute ischemic heart disease; J18.9 Pneumonia, unspecified organism; J91.8 Pleural effusion in other conditions classified elsewhere; Z66 Do not resuscitate; J44.1 Chronic obstructive pulmonary disease with (acute) exacerbation; I25.10 Atherosclerotic heart disease of native coronary artery without angina pectoris; I48.0 Paroxysmal atrial fibrillation; J96.22 Acute and chronic respiratory failure with hypercapnia; Z99.81 Dependence on supplemental oxygen; E78.00 Pure hypercholesterolemia, unspecified; I42.8 Other cardiomyopathies; I48.92 Unspecified atrial flutter; Z95.5 Presence of coronary angioplasty implant and graft; J96.21 Acute and chronic respiratory failure with hypoxia; E55.9 Vitamin D deficiency, unspecified; B94.8 Sequelae of other specified infectious and parasitic diseases; E03.9 Hypothyroidism, unspecified; N40.1 Benign prostatic hyperplasia with lower urinary tract symptoms; N17.9 Acute kidney failure, unspecified; I50.23 Acute on chronic systolic (congestive) heart failure; I11.0 Hypertensive heart disease with heart failure; I25.5 Ischemic cardiomyopathy; E83.51 Hypocalcemia; Z79.82 Long term (current) use of aspirin; Z51.5 Encounter for palliative care; Z79.890 Hormone replacement therapy; Z87.891 Personal history of nicotine dependence; I25.2 Old myocardial infarction; R39.9 Unspecified symptoms and signs involving the genitourinary system